=== PATIENT | male | born 1955 | race Asian ===

== ENCOUNTER 2020-03-27 01:04 | Inpatient (IN) | payer MEDICARE, OTHER ==
[~2020-03-27] VITALS: Ht 172.7 cm; Wt 63.0 kg
[2020-03-27] VITALS (69 sets, daily range): BP systolic 64–164; BP diastolic 48–103
--- NOTE | 2020-03-27 01:04 | NUR ---
BIBRA 39 ALOC AND SOB, pt to bed 5, pt came in ambu-bag via rescue, pt placed on monitor, +md prasanna at bedside for eval.
--- NOTE | 2020-03-27 01:12 | NUR ---
SUCCINYLCHOLINE 200MG IVP X 1, L HAND 20G
--- NOTE | 2020-03-27 01:15 | NUR ---
AT THE BED SIDE FOR INTUBATION
--- NOTE | 2020-03-27 01:15 | NUR ---
INTUBATED: ET 7.5, 24@ LIP
--- NOTE | 2020-03-27 01:16 | NUR ---
VENT SETTING: AC 16, 500VT, 100%, +5PEEP
[2020-03-27] MEDS ORDERED: VANCOMYCIN 1 GM in IV D5W 250 ML IV ONE (01:30)
[2020-03-27] MEDS ORDERED: PIPERACILLIN /TAZOBACTAM 3.375 G in IV D5W 50 ML IV ONE ×2 (01:30→06:00)
[2020-03-27] MEDS ORDERED: IV NS 0.9% 1,000 ML BAG IV ONE ×2 (01:30)
--- NOTE | 2020-03-27 01:55 | NUR ---
SON: BRANDT: [phone]
[2020-03-27] MEDS ORDERED: VANCOMYCIN 1 GM VIAL ONE (02:08)
[2020-03-27] MEDS ORDERED: PIPERACILLIN /TAZOBACTAM 3.375 G VIAL IV ONE (02:09)
[2020-03-27 02:21] LABS: BASOPHILS % (AUTO) 0.1 % (0.0-2.0); HEMATOCRIT 36 % (39-51); HEMOGLOBIN 11.5 g/dL (13.5-17.5); LYMPHOCYTES # (AUTO) 0.2 /CMM (0.8-4.8); LYMPHOCYTES % (AUTO) 2.9 % (20.0-44.0); MEAN CORPUSCULAR HGB CONC 33 g/dl (31.0-36.0); MEAN CORPUSCULAR VOLUME 82 fL (80-96); MONOCYTES # (AUTO) 0.2 /CMM (0.1-1.30); MONOCYTES % (AUTO) 3.3 % (2.0-12.0); NEUTROPHILS # (AUTO) 5.5 /CMM (1.8-8.9); NEUTROPHILS % (AUTO) 93.7 % (43.0-81.0); PLATELET COUNT (AUTO) 211 /CMM (150-450); RED BLOOD CELL COUNT(AUTO) 4.34 MIL/uL (4.5-6.0); WHITE BLOOD COUNT (AUTO) 5.9 K/uL (4.3-11.0)
[2020-03-27 02:21] LABS: APPEARANCE,URINE SL CLOUDY (CLEAR); BILIRUBIN,URINE MODERATE (NEGATIVE); BLOOD, URINE SMALL Ery/uL (NEGATIVE); COLOR,URINE YELLOW (YELLOW); KETONES,URINE 15 (NEGATIVE); LEUKOCYTE ESTERASE ,URINE SMALL (NEGATIVE); NITRITE, URINE NEGATIVE (NEGATIVE); PROTEIN,URINE 100 mg/dl (NEGATIVE); UGLUCOSE NEGATIVE (NEGATIVE); UROBILINOGEN,URINE 0.2 EU/dL (0.2)
[2020-03-27 02:27] LABS: BACTERIA,URINE Many /HPF (None Seen); SQUAMOUS EPITHELIAL CELL,UR Rare /HPF (None Seen); WBC,URINE TOO NUMEROUS TO COUN /HPF (0-3)
[2020-03-27 02:55] LABS: ALANINE AMINOTRANSFERASE 34 U/L (12-78); ALBUMIN 2.3 g/dL (3.4-5.0); ALKALINE PHOSPHATASE 145 U/L (46-116); ASPARTATE AMINOTRANSFERASE 38 U/L (15-37); B-TYPE NATRIURETIC PEPTIDE 1981 PG/ML (0-125); BILIRUBIN,DIRECT 0.3 mg/dL (0.0-0.2); BILIRUBIN,TOTAL 0.5 mg/dL (0.2-1.0); CALCIUM, SERUM 7.9 mg/dL (8.5-10.1); CARBON DIOXIDE 32 mmol/L (21-32); CHLORIDE 108 mmol/L (98-107); CREATININE 0.9 mg/dL (0.6-1.3); POTASSIUM 3.1 mmol/L (3.5-5.1); SODIUM SERUM 145 mmol/L (136-145); TOTAL PROTEIN, SERUM 5.1 g/dL (6.4-8.2); UREA NITROGEN, BLOOD 33 mg/dL (7-18)
[2020-03-27 02:56] LABS: GLUCOSE 28 mg/dL (74-106)
[2020-03-27] MEDS ORDERED: DEXTROSE 50%-WATER 50 ML DISP.SYRIN ONE (02:57)
[2020-03-27] MEDS ORDERED: DEXTROSE 50%-WATER 50 ML DISP.SYRIN IVP ONE (03:30)
[2020-03-27 03:50] LABS: ABG BASE EXCESS -1.1 mmol/L; ABG OXYGEN SATURATION 94.6 % (92.0-98.5); ABG PH 7.399 (7.350-7.450); ABG PO2 78.3 mmHg (75.0-100.0); AaDO2 595.7 mmHg; COHb 0.9 % (0.5-1.5); MetHb 0.3 % (0.0-1.5); O2Hb 93.5 % (94.0-97.0); PEEP,BG 5 cm H2O; SITE, ABG Left Radial; VT, ABG 500 mL
[2020-03-27] MEDS ORDERED: PROPOFOL 100 ML ONE (03:58)
--- NOTE | 2020-03-27 04:21 | NUR ---
report given to jelena queen, pt will be transported to icu
[2020-03-27] MEDS ORDERED: PANT40TA2 PO (04:22)
[2020-03-27] MEDS ORDERED: PRED20TA PO (04:22)
[2020-03-27] MEDS ORDERED: BICT1TAB PO (04:22)
--- NOTE | 2020-03-27 04:22 | NUR ---
propofol drip started per dr. valle verbal order.
--- NOTE | 2020-03-27 05:30 | NUR ---
EL TEACHER NOTES, RECEIVED PATIENT FROM ER ENTUBATED, ETT 7.5 24 LIP, AC 16, TV 500, FIO2 100%, PEEP 5, ON PROPOFOL 10MCG, PATIENT ATTACHED TO TELE MONITOR BP 130/62, HR 100, 96%, 96.7, 18, IV ACCESS RIGHT FOOT AND LEFT HAND 20G PATENT AND INTACT UNDER [facility] WITH DX SEPSIS, R/O COVID, AFEBRILE AT THIS TIME, SACRAL REDNESS NOTED, AND MULTIPLE, COLOSTOMY IN PLACED WITH MINIMAL YELLOWISH STOOL NOTED, ALL NEEDS PROVIDED, WILL CONTINUE TO MONITOR CLOSELY.
--- NOTE | 2020-03-27 05:30 | NUR ---
RN NOTES, CORRECTION ADMITTING DX RESPIRATORY FAILURE.
[2020-03-27] MEDS ORDERED: ZOLPIDEM TARTRATE 5 MG TABLET PO PRN (06:00)
[2020-03-27] MEDS ORDERED: ACETAMINOPHEN 325 MG TABLET PO PRN (06:00)
[2020-03-27] MEDS: PROPOFOL 100 ML IV PRN ×3 (06:00→20:44)
[2020-03-27] MEDS ORDERED: MAGNESIUM HYDROXIDE 30 ML UDC PO PRN (06:00)
[2020-03-27] MEDS ORDERED: PROPOFOL 100 ML IV PRN (06:00)
[2020-03-27] MEDS ORDERED: Z GUARD REMEDY 2 OZ OINT TP PRN (06:00)
[2020-03-27] MEDS ORDERED: DEXTROSE 50%-WATER 50 ML DISP.SYRIN IV PRN (06:00)
[2020-03-27] MEDS ORDERED: PIPERACILLIN /TAZOBACTAM 3.375 G in IV D5W 50 ML IV SCH (06:00)
[2020-03-27] MEDS ORDERED: HYDROCODONE/APAP 5/325MG 1 EACH TABLET PO PRN (06:00)
[2020-03-27] MEDS ORDERED: ONDANSETRON HCL/PF 4 MG/2 ML VIAL IVP PRN (06:00)
[2020-03-27] MEDS: IV D5/ 0.9% NACL 1,000 ML IV PRN ×2 (06:07→22:41)
[2020-03-27 06:23] LABS: BASOPHILS % (AUTO) 0.5 % (0.0-2.0); HEMATOCRIT 39 % (39-51); HEMOGLOBIN 12.6 g/dL (13.5-17.5); LYMPHOCYTES # (AUTO) 0.1 /CMM (0.8-4.8); MEAN CORPUSCULAR HGB CONC 32 g/dl (31.0-36.0); MEAN CORPUSCULAR VOLUME 82 fL (80-96); MONOCYTES # (AUTO) 0.1 /CMM (0.1-1.30); MONOCYTES % (AUTO) 2.5 % (2.0-12.0); NEUTROPHILS # (AUTO) 4.1 /CMM (1.8-8.9); PLATELET COUNT (AUTO) 213 /CMM (150-450); RED BLOOD CELL COUNT(AUTO) 4.76 MIL/uL (4.5-6.0); WHITE BLOOD COUNT (AUTO) 4.3 K/uL (4.3-11.0)
[2020-03-27] MEDS: BLOOD SUGAR DIAGNOSTIC 1 EACH STRIP IN SCH ×3 (06:50→18:00)
--- NOTE | 2020-03-27 07:14 | NUR ---
RN NOTES, PATIENT ENTUBATED WITH STABLE VS, REPORT GIVEN TO MELITON FOR CONTINUATION OF CARE, CONT ON PROPOFOL 10MCG, AND D5 NS AT 125ML/HR, IV ACCESS IN RIGHT FOOT AND LEFT FA 20G PATENT AND INTACT, S/R OF BED 2X UP, BED LOCKED AND IN LOW POSITION, CALL LIGHT W/I REACH, BILATERAL SOFT WRIST RESTRAINS IN PLACED, NO ABNORMALITIES NOTED, NO CIRCULATION COMPROMISED.
[2020-03-27 07:36] LABS: C-REACTIVE PROTEIN 10.6 mg/dL (0.0-0.9)
[2020-03-27] MEDS ORDERED: FEE PK DOSING 1 MIN EA MC ONE (07:41)
[2020-03-27 07:43] LABS: CALCIUM, SERUM 7.8 mg/dL (8.5-10.1); CREATININE 0.9 mg/dL (0.6-1.3); MAGNESIUM 1.6 mg/dL (1.8-2.4); PHOSPHORUS 2.5 mg/dL (2.5-4.9); POTASSIUM 3.5 mmol/L (3.5-5.1)
[2020-03-27 08:10] LABS: ABG BASE EXCESS 0.1 mmol/L; ABG OXYGEN SATURATION 98.3 % (92.0-98.5); ABG PH 7.458 (7.350-7.450); ABG PO2 177.5 mmHg (75.0-100.0); AaDO2 501.5 mmHg; COHb 0.5 % (0.5-1.5); MetHb 0.1 % (0.0-1.5); O2Hb 97.7 % (94.0-97.0); SITE, ABG Right Radial; VENT MODE, BG AC 16 500 100% +5
[2020-03-27] MEDS: POTASSIUM CL. PREMIX PERIPHER. 50 ML IV SCH ×4 (08:58→12:13)
[2020-03-27] MEDS: ENOXAPARIN SODIUM 40 MG/0.4 ML DISP.SYRIN SQ SCH (09:00)
[2020-03-27] MEDS ORDERED: SUCCINYLCHOLINE CHLORIDE 20 MG/ML VIAL ONE (10:22)
[2020-03-27] MEDS: PIPERACILLIN /TAZOBACTAM 3.375 G in IV D5W 100 ML IV SCH ×2 (10:27→16:10)
--- NOTE | 2020-03-27 10:51 | NUR ---
RN NOTE RT suctioned patient, placed in specimen fridge, made lab aware.
--- NOTE | 2020-03-27 10:53 | NUR ---
RN NOTE 0715: Received patient with ETT to dalila,t no respiratory distress noted at this time. With 2 PIVs intact, on Diprivan @ 10, noted patient with mild agitaion, will titrate as ordered. On D5NS @ 100. On isolcation prec for Covid, maintained and observed. ST 100's on the monitor. 0845: S/E by Dr. Mendez, aware for the ABG, with order to change vent settings, from AC 16, 500, 100% +5 to FIO2 70%. 0900: Tried placing NGT or OGT but unsuccessful, no gurgling sound during auscultation. Will try again later. 1045: No any significant changes noted at this time. Will continue to monitor.
[2020-03-27] MEDS: Magnesium 1GM/D5W 100ML PREMIX 100 ML IV SCH ×2 (11:24→14:15)
[2020-03-27] MEDS: methylPREDNISolone SOD SUCC 40 MG/ML VIAL IV SCH ×2 (11:24→16:09)
[2020-03-27] MEDS ORDERED: PHENYLEPHRINE 50 MG in IV NS 0.9% 245 ML IV PRN (12:00)
[2020-03-27] MEDS: SULFAMETHOXAZOLE/TRIMETHOPRIM 15 ML in IV D5W 250 ML IV SCH ×2 (12:46→17:41)
[2020-03-27] MEDS: VANCOMYCIN 1 GM in IV D5W 250 ML IV SCH (14:30)
[2020-03-28] VITALS (41 sets, daily range): BP systolic 86–131; BP diastolic 42–81
[2020-03-28] MEDS: SULFAMETHOXAZOLE/TRIMETHOPRIM 15 ML in IV D5W 250 ML IV SCH ×3 (01:12→15:40)
[2020-03-28] MEDS: BLOOD SUGAR DIAGNOSTIC 1 EACH STRIP IN SCH ×4 (01:35→17:26)
[2020-03-28] MEDS: PIPERACILLIN /TAZOBACTAM 3.375 G in IV D5W 100 ML IV SCH ×3 (01:38→17:26)
--- NOTE | 2020-03-28 01:48 | NUR ---
EXPERIMENTAL MACHINING LAB MANAGER: CALLED AND NOTIFIED KYLAH SHELDON NP FLIGHT LINE MECHANIC RE BLOOD [id number] AND MADE AWARE PT ON D5NS AT 100ML/HR. INCLUSION SPECIALIST HAS NO NEW ORDER AT THIS TIME AND CONTINUE TO MONITOR.
[2020-03-28] MEDS: VANCOMYCIN 1 GM in IV D5W 250 ML IV SCH ×2 (02:45→15:39)
[2020-03-28] MEDS: PHENYLEPHRINE 50 MG in IV NS 0.9% 245 ML IV PRN (04:18)
[2020-03-28 05:10] LABS: ALBUMIN 1.5 g/dL (3.4-5.0); BILIRUBIN,DIRECT 0.1 mg/dL (0.0-0.2); BILIRUBIN,TOTAL 0.3 mg/dL (0.2-1.0); TOTAL PROTEIN, SERUM 4.1 g/dL (6.4-8.2)
[2020-03-28 05:11] LABS: *BASOS 0 % (Not Estab.); *COMMENTS Note: (.); *EOS 0 % (Not Estab.); *HCT 34.9 % (37.5-51.0); *HGB 11.1 g/dL (13.0-17.7); *LYMPHOCYTES 4 % (Not Estab.); *LYMPHS, ABSOLUTE 0.2 x10E3/uL (0.7-3.1); *MCH 25.3 pg (26.6-33.0); *MCHC 31.8 g/dL (31.5-35.7); *MCV 80 fL (79-97); *MONOCYTES 3 % (Not Estab.); *MONOS, ABSOLUTE 0.1 x10E3/uL (0.1-0.9); *NEUTROPHILS 69 % (Not Estab.); *NEUTROPHILS, ABSOLUTE 3.7 x10E3/uL (1.4-7.0); *PLT 197 x10E3/uL (150-450); *RBC 4.38 x10E6/uL (4.14-5.80); *RDW 18.4 % (11.6-15.4)
[2020-03-28 05:27] LABS: CALCIUM, SERUM 7.3 mg/dL (8.5-10.1); CREATININE 0.8 mg/dL (0.6-1.3); PHOSPHORUS 2.4 mg/dL (2.5-4.9); POTASSIUM 3.4 mmol/L (3.5-5.1)
[2020-03-28 06:01] LABS: BASOPHILS % (AUTO) 0.2 % (0.0-2.0); EOSINOPHILS % (AUTO) 0.1 % (0.0-6.0); HEMATOCRIT 28 % (39-51); HEMOGLOBIN 9.1 g/dL (13.5-17.5); LYMPHOCYTES # (AUTO) 0.1 /CMM (0.8-4.8); MEAN CORPUSCULAR HGB CONC 32 g/dl (31.0-36.0); MEAN CORPUSCULAR VOLUME 80 fL (80-96); MONOCYTES # (AUTO) 0.3 /CMM (0.1-1.30); MONOCYTES % (AUTO) 2.1 % (2.0-12.0); NEUTROPHILS # (AUTO) 14.2 /CMM (1.8-8.9); NEUTROPHILS % (AUTO) 96.6 % (43.0-81.0); PLATELET COUNT (AUTO) 154 /CMM (150-450); WHITE BLOOD COUNT (AUTO) 14.7 K/uL (4.3-11.0)
[2020-03-28] MEDS: PROPOFOL 100 ML IV PRN ×2 (06:24→10:40)
[2020-03-28 06:28] LABS: BAND % (MANUAL) 26 % (0.0-5.0); LYMPHOCYTES % (MANUAL) 3 % (16-48); MONOCYTES % (MANUAL) 3 % (0-11.0); NEUTROPHILS % (MANUAL) 68 (42-76)
--- NOTE | 2020-03-28 06:30 | NUR ---
ALPACA FARMER: REMAINS SEDATED ON DIPRIVAN AT 25MCG/KG/MIN. CONTINUE ON NEOSYNEPHRINE AT 1MCG/KG/MIN. VENT SETTINGS ORDERED AND TOLERATING WELL. BILAT. WRIST RESTRAINTS IN PLACE TO PREVENT SELF-EXTUBATION. SKIN AND CIRCULATION WNL. BED BATH GIVEN. WILL CONTINUE TO MONITOR.
[2020-03-28] MEDS ORDERED: Potassium Chloride 40 MEQ in IV D5/ 0.9% NACL 1,000 ML IV PRN (07:00)
--- NOTE | 2020-03-28 07:00 | NUR ---
TORCH CUTTER OPENING NOTES \ PATIENT IS SEDATED WITH DIPRIVAN RUNNIN @ 25MCG/KG , ON EXTERNAL MONITOR SR IN THE 60'S ON ,INTUBATED WITH MECH VENT SETTINGS PRESCRIBED BY DOC. 7.5 ETT, AC 16, TV 500, FIO2 60 , PEEP 5 . COLOSTOMY BAG, CLEAN AND INTACT WITH SMALL AMOUNTS OF OUTPUT, WHITE CATH PATENT AND INTACT, SACRAL REDNESS, BILATERAL HEELS, KNEES F FOOT IV SITE 20G, L FA 20G PATENT INTACT, NO SIGNS OF INFILTRATION. BED LOCKED AND LOWEST POSITION CALL LIGHT WITHIN REACH ALL SAFETY MEASURE IMPLEMENTED PER HOSPITAL POLICY.
[2020-03-28 08:15] LABS: ABG BASE EXCESS -1.5 mmol/L; ABG OXYGEN SATURATION 97.9 % (92.0-98.5); ABG PCO2 28.5 mmHg (35.0-45.0); ABG PH 7.488 (7.350-7.450); AaDO2 284.5 mmHg; COHb 0.5 % (0.5-1.5); MetHb 0.3 % (0.0-1.5); O2Hb 97.1 % (94.0-97.0); PEEP,BG 5 cm H2O; SITE, ABG Right Radial; VT, ABG 500 mL
--- NOTE | 2020-03-28 08:40 | NUR ---
VENT CHANGES BELOW PER DR. AHGEN: ANGEL 12 FIO2 50% Addendum: 03/28/20 at 0840 by JEANNE GARG RT Amended: Links added.
[2020-03-28] MEDS ORDERED: BIKTARVY PO SCH (09:00)
[2020-03-28] MEDS ORDERED: Sodium Phosphate 15 MMOL in IV NS 0.9% 245 ML IV SCH (10:30)
[2020-03-28] MEDS: methylPREDNISolone SOD SUCC 40 MG/ML VIAL IV SCH ×2 (11:08→17:25)
[2020-03-28] MEDS: ENOXAPARIN SODIUM 40 MG/0.4 ML DISP.SYRIN SQ SCH (11:09)
--- NOTE | 2020-03-28 12:33 | NUR ---
COLOR CHECKER - NG TUBE PULL NG TUBE OUT
--- NOTE | 2020-03-28 18:42 | NUR ---
GYM INSTRUCTOR NO CHANGE IN CONDITION AT THIS TIME, PATIENT REMAINS STABLE, NO PAIN, NO ACUTE RESPIRATORY RESPONSE, VITALS REMAINS STABLE, PATIENT TURN AND REPOSITION Q2H, BED LOCKED AN LOWEST POSITION CALL LIGHT WITH IN REACH ALL SAFETY MEASURE IMPLEMENTED PER HOSPITAL POLICY. Addendum: 03/28/20 at 1844 by DAVID VILLAREAL RN PERFORMANCE TESTER NO CHANGE IN CONDITION AT THIS TIME, PATIENT REMAINS STABLE, NO PAIN, NO ACUTE RESPIRATORY RESPONSE, VITALS REMAINS STABLE, PATIENT TURN AND REPOSITION Q2H, BED LOCKED AN LOWEST POSITION CALL LIGHT WITH IN REACH ALL SAFETY MEASURE IMPLEMENTED PER HOSPITAL POLICY. TALKED TO FAMILY TO UPDATE ON PATIENT CONDITION
--- NOTE | 2020-03-28 19:30 | NUR ---
STALLION KEEPER NOTES SUCTIONED DONE NOTED WITH SMALL AMT OF BLEEDING , PER RN DAY SHIFT NGT TRIED TO INSERT BUT UNABLE TO DO IT.
[2020-03-28] MEDS ORDERED: FLUCONAZOLE IN NS 200 MG in PREMIX 1 EA IV SCH ×2 (20:00)
--- NOTE | 2020-03-28 20:00 | NUR ---
MIS MANAGER OPENING NOTES \ PATIENT IN BED REMAINS ON VENT AC SETTINGS WELL TOLERATED ON SR ON THE MONITOR SATING 100% ,NO SOB NO DISTRESS NOTED BREATHING EVEN AND UNLABORED. WITH DIPRIVAN RUNNIN @ 25MCG/KG ,CALEB DRIP AT 0.5MCG/KG/MIN INFUSING WELL,WITH BELEN PICCLINE INTACT AND PATENT ,WITH R FOOT G#20 AND RIGHT HAND g#20 INTACT AND PATENT. COLOSTOMY BAG, CLEAN AND INTACT WITH SMALL AMOUNTS OF OUTPUT, WHITE CATH PATENT AND INTACT DRAINING WITH YELLOWISH URINE OUTPUT.V/S STABLE AFEBRILE , PTS TURNED AND REPOSITION. BED LOCKED AND LOWEST POSITION CALL LIGHT WITHIN REACH ALL SAFETY MEASURE IMPLEMENTED PER HOSPITAL POLICY. PTS ON BILATERAL WRIST RESTRAINT TO PREVENT PULLING OF INVASIVE TUBINGS ,ALL NEEDS ATTENDED TOO ,ALL DUE MEDS GIVEN ORDERED.
[2020-03-28] MEDS: Potassium Chloride 40 MEQ in IV NS 0.9% 1,000 ML IV PRN (20:33)
[2020-03-28] MEDS: AZITHROMYCIN 500 MG in IV D5W 250 ML IV SCH (20:37)
[2020-03-28] MEDS: ACYCLOVIR IV 500 MG in IV D5W 100 ML IV SCH (21:04)
--- NOTE | 2020-03-28 22:00 | NUR ---
GRAIN OPERATIONS MANAGER NOTES BLOOD SUGAR AT 0000HRS IS 206 MG/DL NO COVERAGE GIVEN , ALL DUE MEDS AND IV ATB GIVEN ORDERED.WILL CONTINUE TO MONITOR PTS.
[2020-03-28] MEDS: PROPOFOL 10MG/ML 50ML 50 ML IV PRN ×2 (22:05→23:28)
[2020-03-29] VITALS (47 sets, daily range): BP systolic 87–119; BP diastolic 63–96
[2020-03-29] MEDS: SULFAMETHOXAZOLE/TRIMETHOPRIM 15 ML in IV D5W 250 ML IV SCH ×3 (00:13→17:48)
[2020-03-29] MEDS: BLOOD SUGAR DIAGNOSTIC 1 EACH STRIP IN SCH ×4 (00:38→18:06)
[2020-03-29] MEDS: PIPERACILLIN /TAZOBACTAM 3.375 G in IV D5W 100 ML IV SCH ×3 (01:06→16:44)
[2020-03-29] MEDS: PROPOFOL 10MG/ML 50ML 50 ML IV PRN ×3 (05:10→17:37)
[2020-03-29 05:19] LABS: BASOPHILS # (AUTO) 0.1 /CMM (0.0-0.2); BASOPHILS % (AUTO) 0.5 % (0.0-2.0); HEMATOCRIT 27 % (39-51); HEMOGLOBIN 8.9 g/dL (13.5-17.5); LYMPHOCYTES # (AUTO) 0.1 /CMM (0.8-4.8); LYMPHOCYTES % (AUTO) 1.1 % (20.0-44.0); MEAN CORPUSCULAR HGB CONC 33 g/dl (31.0-36.0); MEAN CORPUSCULAR VOLUME 80 fL (80-96); MONOCYTES # (AUTO) 0.3 /CMM (0.1-1.30); MONOCYTES % (AUTO) 2.6 % (2.0-12.0); NEUTROPHILS % (AUTO) 95.8 % (43.0-81.0); PLATELET COUNT (AUTO) 145 /CMM (150-450); RED BLOOD CELL COUNT(AUTO) 3.42 MIL/uL (4.5-6.0); WHITE BLOOD COUNT (AUTO) 10.4 K/uL (4.3-11.0)
[2020-03-29 06:02] LABS: CALCIUM, SERUM 7.4 mg/dL (8.5-10.1); CREATININE 0.6 mg/dL (0.6-1.3); MAGNESIUM 1.7 mg/dL (1.8-2.4); PHOSPHORUS 2.6 mg/dL (2.5-4.9); POTASSIUM 3.8 mmol/L (3.5-5.1)
--- NOTE | 2020-03-29 06:20 | NUR ---
LARGE ANIMAL HUSBANDRY TECHNICIAN NOTES BLOOD SUGAR AT 0600HRS IS 143 MG/DL NO COVERAGE GIVEN ORDERED.
--- NOTE | 2020-03-29 06:53 | NUR ---
COILER NOTES PTS REMAINS ON DIPRIVAN 25 MCG AND NEO0.5MCG DRIP ORDERED WELL TOLERATED , WILL ENDORSE TO RN DAY SHIFT FOR CONTINUITY OF CARE.
[2020-03-29 07:45] LABS: ABG BASE EXCESS -1.7 mmol/L; ABG OXYGEN SATURATION 98.3 % (92.0-98.5); ABG PCO2 29.4 mmHg (35.0-45.0); ABG PH 7.476 (7.350-7.450); ABG PO2 147.1 mmHg (75.0-100.0); AaDO2 176.3 mmHg; COHb 0.4 % (0.5-1.5); MetHb 0.3 % (0.0-1.5); O2Hb 97.6 % (94.0-97.0); PEEP,BG 5 cm H2O; SITE, ABG Right Radial; VT, ABG 500 mL
--- NOTE | 2020-03-29 08:00 | NUR ---
LIQUOR MERCHANT NOTE PATIENT IN BED, O\SEDATED ON ETT TUBE ORDERED, WITH COLOSTOMY BAG IN PLACE, NO SOB NOTED ABG DONE BY RT , ON IVF ORDERED,ON PROPOFOL DRIP ORDERED AND CALEB DRIP AND IVF, ON NPO , BED IN LOWEST AND LOCKED POSITION WITH SOFT RESTRAIN ORDERED ,WILL MONITOR
[2020-03-29] MEDS: ACYCLOVIR IV 500 MG in IV D5W 100 ML IV SCH ×2 (08:06→16:44)
[2020-03-29] MEDS: Potassium Chloride 40 MEQ in IV NS 0.9% 1,000 ML IV PRN (08:25)
--- NOTE | 2020-03-29 08:30 | NUR ---
IRON CASTER NOTE PROPOFOL VOCATION DONE ABLE TO OPEN BOTH EYES AND UNDERSTANDS SIMPLE TO BLINK BOTH EYES AND SQUEEZE BOTH HANDS BUT GET TACHYPNEIC, RR 27 RESTART PROPOFOL PER PROTOCOL AND TITRATE PER PROTOCOL
--- NOTE | 2020-03-29 09:00 | NUR ---
RT PER DR HAGEN, DECREASED TIDAL VOLUME TO 450 AND FIO2 TO 40%. RN AWARE
[2020-03-29] MEDS: Magnesium 1GM/D5W 100ML PREMIX 100 ML IV SCH ×2 (09:09→11:30)
[2020-03-29] MEDS: methylPREDNISolone SOD SUCC 40 MG/ML VIAL IV SCH ×2 (09:09→16:44)
[2020-03-29] MEDS: ENOXAPARIN SODIUM 40 MG/0.4 ML DISP.SYRIN SQ SCH (09:11)
--- NOTE | 2020-03-29 10:00 | NUR ---
SPICE FUMIGATOR NOTE SEEN BY DR HAGEN AWARE THAT PATIENT HAS BLOODY THICK SECRETION WHEN SUCTION
--- NOTE | 2020-03-29 12:00 | NUR ---
GENERAL EDUCATION PROFESSOR NOTE PER RT ABD DR HAGEN OK TO CHANGE VENT SETTING TO AC12 TV 450 FIO2 405 PEEP 5 WILL F\U
[2020-03-29] MEDS: PHENYLEPHRINE 50 MG in IV NS 0.9% 245 ML IV PRN (12:31)
--- NOTE | 2020-03-29 16:00 | NUR ---
ACCOUNT SUPPORT ANALYST NOTE 2D ECHO DONE ORDERED
--- NOTE | 2020-03-29 18:47 | NUR ---
TABLE HAND NOTE MOUTH CARE DONE ON CALEB AND PROPOFOL DRIP ORDERED SEEN BY NEAR RN GARMENT FITTER ID AWARE THAT UNABLE TO INSERT N GTUBE PATIENT BLEEDING ,AD AWARE THAT ORAL BLOODY SECRETION
--- NOTE | 2020-03-29 19:00 | NUR ---
Received patient orally intubated to the ventilator on AC mode, not in any distress, Sedated on Propofol drip, RASS 3, responds to pain,+ strong cough/gag.. Moves extremities but weak,maintained on bilateral soft wrist restraints. PICC line @ CHARLY.Neosynephrine drip for BP support. Colostomy intact .
--- NOTE | 2020-03-29 19:20 | NUR ---
PT RECEIVED ORALLY INTUBATED WITH 7.5 ET TUBE @ 24 CM LIP LINE. PT IS SEDATED . CUFF CHECKED VIA NEEDLE GRINDER. SX DONE, ET TUBE SECURED AND PATENT. NO RESPIRATORY DISTRESS. ALARMS ON AND AUDIBLE. WILL MONITOR T/O SHIFT.
[2020-03-29] MEDS: CEFEPIME 2 GM in IV D5W 100 ML IV SCH (21:20)
[2020-03-29] MEDS: FLUCONAZOLE IN NS 200 MG in PREMIX 1 EA IV SCH ×2 (21:33)
[2020-03-29] MEDS: AZITHROMYCIN 500 MG in IV D5W 250 ML IV SCH ×2 (21:40→21:45)
[2020-03-30] VITALS (83 sets, daily range): BP systolic 83–135; BP diastolic 48–90
[2020-03-30] MEDS: SULFAMETHOXAZOLE/TRIMETHOPRIM 15 ML in IV D5W 250 ML IV SCH ×4 (00:10→23:10)
[2020-03-30] MEDS: BLOOD SUGAR DIAGNOSTIC 1 EACH STRIP IN SCH ×5 (00:34→23:22)
[2020-03-30] MEDS: PROPOFOL 10MG/ML 50ML 50 ML IV PRN ×4 (04:34→20:35)
[2020-03-30] MEDS: CEFEPIME 2 GM in IV D5W 100 ML IV SCH ×3 (05:04→20:40)
[2020-03-30 05:10] LABS: BASOPHILS # (AUTO) 0.1 /CMM (0.0-0.2); BASOPHILS % (AUTO) 0.7 % (0.0-2.0); HEMATOCRIT 29 % (39-51); HEMOGLOBIN 9.5 g/dL (13.5-17.5); LYMPHOCYTES # (AUTO) 0.1 /CMM (0.8-4.8); LYMPHOCYTES % (AUTO) 1.1 % (20.0-44.0); MEAN CORPUSCULAR HGB CONC 33 g/dl (31.0-36.0); MEAN CORPUSCULAR VOLUME 81 fL (80-96); MONOCYTES # (AUTO) 0.4 /CMM (0.1-1.30); MONOCYTES % (AUTO) 3.4 % (2.0-12.0); NEUTROPHILS # (AUTO) 12.2 /CMM (1.8-8.9); NEUTROPHILS % (AUTO) 94.8 % (43.0-81.0); PLATELET COUNT (AUTO) 153 /CMM (150-450); RED BLOOD CELL COUNT(AUTO) 3.61 MIL/uL (4.5-6.0); WHITE BLOOD COUNT (AUTO) 12.8 K/uL (4.3-11.0)
[2020-03-30 05:31] LABS: CALCIUM, SERUM 7.5 mg/dL (8.5-10.1); CREATININE 0.7 mg/dL (0.6-1.3); MAGNESIUM 2.1 mg/dL (1.8-2.4); PHOSPHORUS 2.6 mg/dL (2.5-4.9); POTASSIUM 4.6 mmol/L (3.5-5.1)
[2020-03-30] MEDS ORDERED: IV NS 0.9% 1,000 ML IV PRN (07:51)
--- NOTE | 2020-03-30 08:00 | NUR ---
MANAGER SERVICE DESK: pt.is sedated with 20 mcg/kg/m Diprivan well now, rest now, reactive by touch/pain stimuli with grimacing, on wrists restraints, no SOB/distress, O2sat.over 97% on AC mode, FiO2 40%, suctioned well, SR, on Daryl gtt 0.3 mcg/kg/m now/SBP over 90/continue titrate, NPO, got bleeding with previous GT placement attempt, no critical labs now, Covid19 negative per night nurse report, updated
[2020-03-30 08:41] LABS: ABG BASE EXCESS -3.1 mmol/L; ABG OXYGEN SATURATION 97.3 % (92.0-98.5); ABG PH 7.478 (7.350-7.450); ABG PO2 97.8 mmHg (75.0-100.0); AaDO2 156.4 mmHg; COHb 1.2 % (0.5-1.5); MetHb 0.3 % (0.0-1.5); O2Hb 95.8 % (94.0-97.0); SITE, ABG Left Radial; VENT MODE, BG AC 450 12 40% +5
[2020-03-30] MEDS: ENOXAPARIN SODIUM 40 MG/0.4 ML DISP.SYRIN SQ SCH (08:47)
[2020-03-30] MEDS: methylPREDNISolone SOD SUCC 40 MG/ML VIAL IV SCH ×2 (08:50→16:08)
[2020-03-30] MEDS: ACYCLOVIR IV 500 MG in IV D5W 100 ML IV SCH ×2 (08:50→17:38)
[2020-03-30 09:12] LABS: IRON, SERUM 48 ug/dl (50-175); TOTAL IRON BINDING CAPACITY 79 ug/dl (250-450)
--- NOTE | 2020-03-30 11:02 | NUR ---
FABRICATOR ASSEMBLER METAL PRODUCTS: updated with pt.current condition, sedation level 20 mcg/kg/m Diprivan now/pt.is reactive by touch, able to open eyes with short eyes contact+, VS, Daryl gtt, suction amount, ABG, I/O, see new orders
--- NOTE | 2020-03-30 14:00 | NUR ---
CONSULTING INTERN: RD following LP order updated/last Lovenox given at 08.00
--- NOTE | 2020-03-30 14:30 | NUR ---
ATTORNEY GENERAL: pt.son called, notified re pt.condition, VS, orders, meds, POC, plan for LP, refused to give consent/want to speak with MD before
--- NOTE | 2020-03-30 15:11 | NUR ---
BOARDER STEAM: INÉS ALFARO can do LP after 12 hrs of last Lovenox dose/tomorrow morning, pt.son refused to give consent/want to speak with PMD before, sent message for
[2020-03-30] MEDS: PHENYLEPHRINE 50 MG in IV NS 0.9% 245 ML IV PRN (16:47)
--- NOTE | 2020-03-30 18:30 | NUR ---
AUTO OVERHAULER: answered: ok for LP tomorrow morning, sent Novel coronavirus TAMEKA swab to lab
[2020-03-30] MEDS: AZITHROMYCIN 500 MG in IV D5W 250 ML IV SCH (20:40)
--- NOTE | 2020-03-30 21:20 | NUR ---
RT NOTE Pt Rec'd orally intubated via ETT sz #7.5 secured at 24cm at the lipline. Pt on [facility], avon vent on AC mode on noted settings as charted. Alarms are set and audible. Vent plugged into red outlet. ambu bag bedside. Will continue to monitor closely. Addendum: 03/30/20 at 2120 by BRIELLE PRITCHETT RT Amended: Links added.
[2020-03-30] MEDS: FLUCONAZOLE IN NS 200 MG in PREMIX 1 EA IV SCH ×2 (22:03)
--- NOTE | 2020-03-30 22:30 | NUR ---
ICU/RN RECEIVED PATIENT INTUBATED ON VENTILATOR AND SEDATED, RESPONSIVE TO PAIN STIMULI NO DISTRESS NOTED AND NO SIGNS OF SOB. RESPIRATIONS EVEN AND UNLABORED. SPO2 @99% VIA MECH VENT SETTINGS ORDERED. ETT 7.[address] SR 94 ON BEDSIDE MONITOR. FC DRAINING VIA GRAVITY WITH YELLOW CLEAR OUTPUT. BELEN PICC LINE RUNNING WITH DIPRIVAN AT 20MCG/KG/MIN, NS @ 40CC/HR AND TKO INFUSING WELL. ALL NEEDS ATTENDED. WILL CONTINUE TO MONITOR PATIENT THROUGHOUT SHIFT.
[2020-03-31] VITALS (42 sets, daily range): BP systolic 86–135; BP diastolic 44–88
[2020-03-31] MEDS: PROPOFOL 10MG/ML 50ML 50 ML IV PRN ×4 (00:01→22:25)
[2020-03-31] MEDS: CEFEPIME 2 GM in IV D5W 100 ML IV SCH ×3 (05:22→20:33)
[2020-03-31 05:54] LABS: BASOPHILS % (AUTO) 0.2 % (0.0-2.0); HEMATOCRIT 28 % (39-51); LYMPHOCYTES # (AUTO) 0.1 /CMM (0.8-4.8); MEAN CORPUSCULAR HGB CONC 33 g/dl (31.0-36.0); MEAN CORPUSCULAR VOLUME 80 fL (80-96); MONOCYTES # (AUTO) 0.5 /CMM (0.1-1.30); MONOCYTES % (AUTO) 3.9 % (2.0-12.0); NEUTROPHILS # (AUTO) 11.1 /CMM (1.8-8.9); NEUTROPHILS % (AUTO) 94.9 % (43.0-81.0); PLATELET COUNT (AUTO) 124 /CMM (150-450); RED BLOOD CELL COUNT(AUTO) 3.45 MIL/uL (4.5-6.0); WHITE BLOOD COUNT (AUTO) 11.7 K/uL (4.3-11.0)
[2020-03-31] MEDS: BLOOD SUGAR DIAGNOSTIC 1 EACH STRIP IN SCH ×4 (06:07→23:40)
[2020-03-31 06:09] LABS: CALCIUM, SERUM 7.6 mg/dL (8.5-10.1); CREATININE 0.7 mg/dL (0.6-1.3); MAGNESIUM 1.9 mg/dL (1.8-2.4); PHOSPHORUS 3.4 mg/dL (2.5-4.9); POTASSIUM 4.9 mmol/L (3.5-5.1)
--- NOTE | 2020-03-31 07:17 | NUR ---
ICU/RN PATIENT CONTINUED INTUBATION AND SEDATED. NO SIGN OF ANY DISTRESS. [facility]. ENDORSED PATIENT TO MORNING SHIFT NURSE FOR YASHIRA.
--- NOTE | 2020-03-31 07:50 | NUR ---
SPECIAL FORCES COMMUNICATIONS SERGEANT: pt.is sedated with 20 mcg/kg/m Diprivan well/rest, on wrists restraints, reactive by touch/pain, can open eyes for seconds, rest now, O2sat. over 96%, no SOB, FiO2 40%, suctioned well+lavage given, SR, SBP WNL, off of pressor, NPO, colostomy intact, LP order is still active/will call to RD
[2020-03-31 08:25] LABS: ABG BASE EXCESS -3.2 mmol/L; ABG PCO2 31.9 mmHg (35.0-45.0); ABG PH 7.427 (7.350-7.450); ABG PO2 93.6 mmHg (75.0-100.0); AaDO2 154.9 mmHg; COHb 0.8 % (0.5-1.5); MetHb 0.3 % (0.0-1.5); O2Hb 95.9 % (94.0-97.0); PEEP,BG 5 cm H2O; SITE, ABG Left Radial; VT, ABG 450 mL
--- NOTE | 2020-03-31 09:30 | NUR ---
WIRE COATER: updated RD/Lovenox is in hold, got Q: if LP order is still stat they will call MD salesperson men's and boys' clothing, if not LP will be done on Thursday by in-house MD, sent message for
[2020-03-31] MEDS: methylPREDNISolone SOD SUCC 40 MG/ML VIAL IV SCH ×2 (09:42→16:31)
[2020-03-31] MEDS: ACYCLOVIR IV 500 MG in IV D5W 100 ML IV SCH ×2 (09:42→16:31)
[2020-03-31] MEDS: SULFAMETHOXAZOLE/TRIMETHOPRIM 15 ML in IV D5W 250 ML IV SCH ×3 (09:42→23:26)
--- NOTE | 2020-03-31 10:10 | NUR ---
FAMILY RESOURCE COORDINATOR: wants to verify LP order with ID FLOAT REMOVER, RD called: pt.needs anesthesiologist too
--- NOTE | 2020-03-31 11:05 | NUR ---
MACHINE HEEL SEAT FITTER: updated with pt.current condition, sedation level, VS, I/O, meds, Anbxs, suction amount, NPO, orders/LP order, HIV+, Covid swab was sent yesterday, see new orders
--- NOTE | 2020-03-31 13:03 | NUR ---
Radiology spoke with IR Radiologist Dr. Corado for Lumbar Puncture procedure. He says since the pt. is Rule out for covid at this time to try and attempt LP procedure at bedside. Spoke with Yohannes BRUMFIELD, will speak with Dr. Hendrix if this can wait until Thursday04/02/2020 to see if the results are back. Awaiting to hear back from BRISSA Sheffield.
--- NOTE | 2020-03-31 13:25 | NUR ---
PRESIDENT AND CMO: sedation vacation: stopped Diprivan for short time: pt is reactive, can open eyes, arms/legs activity+, but got restless with ETT biting/coughing, tachypneic. Resumed sedation, suctioned pt.well, O2sat. over 97%
--- NOTE | 2020-03-31 14:06 | NUR ---
SURVEILLANCE OBSERVER: is in unit/updated with pt.current condition, VS, sedation level, pressor off, I/O, NPO, meds, orders, Lovenox is still on hold, sent message to for if possible LP, see new orders
--- NOTE | 2020-03-31 15:00 | NUR ---
INFECTION CONTROL NURSE: is going to do LP, spoke with pt.son/got consent
[2020-03-31] MEDS: ENOXAPARIN SODIUM 40 MG/0.4 ML DISP.SYRIN SQ SCH (16:28)
--- NOTE | 2020-03-31 17:00 | NUR ---
LEGAL INVESTIGATOR: LP done by , pt is tolerated well, sent CSF samples to lab
[2020-03-31 17:39] LABS: CSF GLUCOSE 61 mg/dL (40-70); CSF PROTEIN 89.7 mg/dL (15-45)
[2020-03-31] MEDS: FLUCONAZOLE IN NS 200 MG in PREMIX 1 EA IV SCH ×2 (20:31)
[2020-03-31] MEDS: AZITHROMYCIN 500 MG in IV D5W 250 ML IV SCH (21:08)
--- NOTE | 2020-03-31 21:19 | NUR ---
RECEIVED PT INTUBATED 7.5 ETT AT 24CM AT THE LIP. SX'D FOR MOD AMT OF THICK FERREIRA SECRETIONS. PT TOLERATING VENT SETTINGS. VENT ALARMS SET AND AUDIBLE. VENT PLUGGED INTO RED OUTLET. CONTINUE [facility] VENT SUPPORT. Addendum: 03/31/20 at 2121 by BETO BUTLER RT Amended: Links added.
[2020-04-01] VITALS (26 sets, daily range): BP systolic 93–133; BP diastolic 55–82
[2020-04-01] MEDS: PROPOFOL 10MG/ML 50ML 50 ML IV PRN ×4 (03:37→19:51)
--- NOTE | 2020-04-01 04:38 | NUR ---
LAND DEGRADATION ANALYST PT IS INTUBATED-VENTILATOR AC MODE. SEDATED WITH PROPOFOL DRIP. VSS, AFEBRILE, SCOPE-SR. NO PRESSORS. COVID TEST IS NEGATIVE. PT HAS RIGHT UPPER ARM PICC-LINE. BOTH ARMS ARE +2 EDEMA, MULTIPLE HEMORRHAGES, SKIN IS OOZING. LAB. WORK DONE. COLOSTOMY DRAINS SMALL AMT. OF LIQUID STOOL. F/C DRAINS SUFFICIENT AMT. OF CLEAR YELLOW URINE. BATH GIVEN, LINEN CHANGED. MEDICATED ORDERED. WILL CONTINUE CLOSE MONITORING.
[2020-04-01] MEDS: CEFEPIME 2 GM in IV D5W 100 ML IV SCH ×3 (04:42→20:25)
[2020-04-01 05:04] LABS: BASOPHILS % (AUTO) 0.1 % (0.0-2.0); HEMATOCRIT 27 % (39-51); HEMOGLOBIN 8.8 g/dL (13.5-17.5); LYMPHOCYTES # (AUTO) 0.1 /CMM (0.8-4.8); LYMPHOCYTES % (AUTO) 1.3 % (20.0-44.0); MEAN CORPUSCULAR HGB CONC 33 g/dl (31.0-36.0); MEAN CORPUSCULAR VOLUME 80 fL (80-96); MONOCYTES # (AUTO) 0.6 /CMM (0.1-1.30); MONOCYTES % (AUTO) 5.4 % (2.0-12.0); NEUTROPHILS # (AUTO) 10.3 /CMM (1.8-8.9); NEUTROPHILS % (AUTO) 93.2 % (43.0-81.0); PLATELET COUNT (AUTO) 126 /CMM (150-450); RED BLOOD CELL COUNT(AUTO) 3.37 MIL/uL (4.5-6.0); WHITE BLOOD COUNT (AUTO) 11.1 K/uL (4.3-11.0)
[2020-04-01 05:19] LABS: CALCIUM, SERUM 7.5 mg/dL (8.5-10.1); CREATININE 0.6 mg/dL (0.6-1.3); MAGNESIUM 1.9 mg/dL (1.8-2.4); PHOSPHORUS 3.2 mg/dL (2.5-4.9); POTASSIUM 4.4 mmol/L (3.5-5.1)
[2020-04-01] MEDS: BLOOD SUGAR DIAGNOSTIC 1 EACH STRIP IN SCH ×4 (06:06→23:54)
--- NOTE | 2020-04-01 07:30 | NUR ---
rn notes received patient, sedated width Diprivan at 20mcg. orally intubated.vent settings as follows ac 12, vt 500, fi02at 40, peep 5, patient tolerating the settings well. breathing unlabored. patient sinus rhythm on the monitor with hr on the 80s. bilateral soft wrist restraints in place, removed and replaced. skin is intact on the sites, multiple bruising on bilateral extremities noted. iv access on the donavon: picc line double lumen. left forearm and left foot in place. hob elevated, srx2, bed in low and locked positioon. call light within reach, will continue to monitor patient accordingly
[2020-04-01 08:22] LABS: ABG BASE EXCESS -1.7 mmol/L; ABG OXYGEN SATURATION 95.2 % (92.0-98.5); ABG PCO2 31.7 mmHg (35.0-45.0); ABG PH 7.454 (7.350-7.450); ABG PO2 81.2 mmHg (75.0-100.0); AaDO2 167.5 mmHg; COHb 0.9 % (0.5-1.5); MetHb 0.3 % (0.0-1.5); O2Hb 94.1 % (94.0-97.0); PEEP,BG 5 cm H2O; SITE, ABG Right Radial; VT, ABG 450 mL
[2020-04-01] MEDS: ENOXAPARIN SODIUM 40 MG/0.4 ML DISP.SYRIN SQ SCH (08:29)
[2020-04-01] MEDS: methylPREDNISolone SOD SUCC 40 MG/ML VIAL IV SCH ×2 (08:30→17:16)
[2020-04-01] MEDS: ACYCLOVIR IV 500 MG in IV D5W 100 ML IV SCH ×2 (09:10→09:12)
[2020-04-01] MEDS: SULFAMETHOXAZOLE/TRIMETHOPRIM 15 ML in IV D5W 250 ML IV SCH ×3 (09:12→23:28)
[2020-04-01] MEDS ORDERED: GLUCERNA 1.2 1,000 ML BOTTLE NG PRN (16:00)
--- NOTE | 2020-04-01 19:30 | NUR ---
HARDWARE DEVELOPER OPENING NOTES, RECEIVED PATIENT SEDATED, INTUBATED, TOLERATING CURRENT VENT SETTINGS WELL. NO SOB OR ACUTE DISTRESS NOTED AT THIS TIME. SINUS RHYTHM ON BEDSIDE MONITOR WITH HR IN LOW 80s. IV ACCESS ON BELEN, PICC LINE WITH DIPRIVAN RUNNING AT 20MCG/KG/HR. AND LEFT FA #20 AND LEFT FOOT #[address], PATENT AND FLUSHING WELL. ORAL FEEDING TUBE IS IN PLACE AND PATIENT RECEIVING GLUCERNA @20ML/HR, TOLERATING WELL. FC DRAINING CLEAR/YELLOW URINE TO THE GRAVITY. PATIENT HAS COLOSTOMY INTACT AND DRAINING WELL. BILATERAL LOWER/UPPER EXTREMITIES EDEMA NOTED WITH MULTIPLE BRUISES. SOFT WRIST RESTRAIN NOTED. ALL SAFETY MEASURES IN PLACE. HOB ELEVATED, BED IN LOW/LOCKED POSITION, WILL CONTINUE TO MONITOR THE PATIENT CLOSELY.
--- NOTE | 2020-04-01 19:34 | NUR ---
rn notes endorsed for continuity of care. not on any form of distress. tolerating current vent settings. still sedated with Diprivan at 20mcg/min.
[2020-04-01] MEDS: AZITHROMYCIN 500 MG in IV D5W 250 ML IV SCH (20:25)
[2020-04-01] MEDS: FLUCONAZOLE IN NS 200 MG in PREMIX 1 EA IV SCH ×2 (20:25)
[2020-04-02] VITALS (26 sets, daily range): BP systolic 86–124; BP diastolic 57–78
[2020-04-02] MEDS: PROPOFOL 10MG/ML 50ML 50 ML IV PRN ×4 (02:16→18:05)
[2020-04-02 03:59] LABS: BASOPHILS % (AUTO) 0.4 % (0.0-2.0); HEMATOCRIT 26 % (39-51); HEMOGLOBIN 8.5 g/dL (13.5-17.5); LYMPHOCYTES # (AUTO) 0.1 /CMM (0.8-4.8); LYMPHOCYTES % (AUTO) 1.3 % (20.0-44.0); MEAN CORPUSCULAR HGB CONC 33 g/dl (31.0-36.0); MEAN CORPUSCULAR VOLUME 80 fL (80-96); MONOCYTES # (AUTO) 0.4 /CMM (0.1-1.30); MONOCYTES % (AUTO) 4.3 % (2.0-12.0); NEUTROPHILS # (AUTO) 8.2 /CMM (1.8-8.9); PLATELET COUNT (AUTO) 140 /CMM (150-450); RED BLOOD CELL COUNT(AUTO) 3.26 MIL/uL (4.5-6.0); WHITE BLOOD COUNT (AUTO) 8.7 K/uL (4.3-11.0)
[2020-04-02 04:17] LABS: CALCIUM, SERUM 7.6 mg/dL (8.5-10.1); CREATININE 0.7 mg/dL (0.6-1.3); MAGNESIUM 1.8 mg/dL (1.8-2.4); PHOSPHORUS 3.2 mg/dL (2.5-4.9); POTASSIUM 4.4 mmol/L (3.5-5.1)
[2020-04-02] MEDS: CEFEPIME 2 GM in IV D5W 100 ML IV SCH ×3 (05:06→20:34)
[2020-04-02] MEDS: BLOOD SUGAR DIAGNOSTIC 1 EACH STRIP IN SCH ×3 (06:14→17:57)
--- NOTE | 2020-04-02 07:00 | NUR ---
CHANNEL WORKER CLOSING NOTES, PATIENT SEDATED, INTUBATED, TOLERATING CURRENT VENT SETTINGS WELL. NO SOB OR ACUTE DISTRESS NOTED AT THIS TIME. SINUS RHYTHM ON BEDSIDE MONITOR WITH HR IN LOW 70s. IV ACCESS ON BELEN, PICC LINE WITH DIPRIVAN RUNNING AT 20MCG/KG/HR. AND LEFT FA #20 AND RIGHT FOOT #[address], PATENT AND FLUSHING WELL. ORAL FEEDING TUBE IS IN PLACE AND PATIENT RECEIVING GLUCERNA @20ML/HR, TOLERATING WELL. FC DRAINING CLEAR/YELLOW URINE TO THE GRAVITY. PATIENT HAS COLOSTOMY INTACT AND DRAINING WELL. BILATERAL LOWER/UPPER EXTREMITIES EDEMA NOTED WITH MULTIPLE BRUISES. SOFT WRIST RESTRAIN NOTED. ALL SAFETY MEASURES IN PLACE. HOB ELEVATED, BED IN LOW/LOCKED POSITION, WILL ENDORSE THE PATIENT TO AM RN FOR YASHIRA.
--- NOTE | 2020-04-02 07:30 | NUR ---
RN NOTES RECEIVED PATIENT, NOT ON ANY FORM OF DISTRESS, BREATHING UNLABORED. TOLERATING VENT SETTINGS WELL. NO INDICATION OF PAIN NOTED AT THIS TIME. SINUS RHYTHM ON THE MONITOR WITH HR ON THE 80s. WITH ONGOING GTF RUNNING AT 20 CC/HR. HOB ELEVATED. SRX2 UP. BED IN LOW AND LOCKED POSITION. WILL CONTINUE TO MONITOR PATIENT ACCORDINGLY
[2020-04-02 08:06] LABS: ABG BASE EXCESS -1.5 mmol/L; ABG OXYGEN SATURATION 97.9 % (92.0-98.5); ABG PCO2 30.4 mmHg (35.0-45.0); ABG PH 7.471 (7.350-7.450); ABG PO2 117.4 mmHg (75.0-100.0); AaDO2 204.9 mmHg; COHb 0.8 % (0.5-1.5); MetHb 0.3 % (0.0-1.5); O2Hb 96.8 % (94.0-97.0); PEEP,BG 5 cm H2O; SITE, ABG Other; VT, ABG 450 mL
[2020-04-02] MEDS: ACYCLOVIR IV 500 MG in IV D5W 100 ML IV SCH ×2 (08:38→17:57)
[2020-04-02] MEDS: methylPREDNISolone SOD SUCC 40 MG/ML VIAL IV SCH ×2 (08:38→17:57)
[2020-04-02] MEDS: ENOXAPARIN SODIUM 40 MG/0.4 ML DISP.SYRIN SQ SCH (08:39)
--- NOTE | 2020-04-02 08:53 | NUR ---
WOUND CARE CONSULT: PT PRESENTS WITH RT ARM SKIN TEAR, MULTIPLE AREAS OF BRUISING AND SKIN DISCOLORATION TO UPPER EXTREMITIES, SACRAL DEEP TISSUE INJURY WHICH IS INTACT, AND VERY DUSKY COLOR TO FEET AND HEELS, ALL PRESENT ON ADMISSION. RECOMMENDATIONS MADE FOR SKIN PROTECTION AND WOUND CARE. DISCUSSED WITH NURSING STAFF AND HOSPICE/HOME HEALTH AIDE. WILL SEE PRN. ALFARO IN AGREEMENT WITH PLAN OF CARE. Addendum: 04/02/20 at 0856 by SARI CASTELAN WNDNU Amended: Links added.
[2020-04-02] MEDS: SULFAMETHOXAZOLE/TRIMETHOPRIM 15 ML in IV D5W 250 ML IV SCH ×3 (08:56→23:35)
--- NOTE | 2020-04-02 09:30 | NUR ---
rn notes Dr. Mendez at the unit, with orders to advance ett 2 cm in. Informed RT Fam.
--- NOTE | 2020-04-02 09:35 | NUR ---
et tube adjusted from 24 cm to [address] cadena. Addendum: 04/02/20 at 0936 by JEANNE GARG RT Amended: Links added.
[2020-04-02] MEDS: ACETYLCYSTEINE 10% SOLN 400 MG/4 ML VIAL NEB SCH ×3 (11:00→23:31)
--- NOTE | 2020-04-02 12:00 | NUR ---
RN NOTES PAGED HOSPITALIST FOR POSSIBLE SLIDING SCALE ORDER. AWAITING ORDERS
--- NOTE | 2020-04-02 19:30 | NUR ---
CALCINE FURNACE LOADER OPENING NOTES, RECEIVED PATIENT SEDATED, INTUBATED, TOLERATING CURRENT VENT SETTINGS WELL. NO SOB OR ACUTE DISTRESS NOTED AT THIS TIME. SINUS RHYTHM ON BEDSIDE MONITOR WITH HR IN LOW 80s. IV ACCESS ON BELEN, PICC LINE WITH DIPRIVAN RUNNING AT 20MCG/KG/HR. AND RIGHT HAND #[address], PATENT AND FLUSHING WELL. ORAL FEEDING TUBE IS IN PLACE AND PATIENT RECEIVING GLUCERNA @20ML/HR, TOLERATING WELL. FC DRAINING CLEAR/YELLOW URINE TO THE GRAVITY. PATIENT HAS COLOSTOMY INTACT AND DRAINING WELL. ALL SAFETY MEASURES IN PLACE. HOB ELEVATED, BED IN LOW/LOCKED POSITION, WILL CONTINUE TO MONITOR THE PATIENT CLOSELY.
--- NOTE | 2020-04-02 19:32 | NUR ---
RN NOTES ENDORSED FOR CONTINUITY OF CARE.STILL SEDATED WITH DIPRIVAN AT 20 MCG. NOT ON ANY FORM OF DISTRESS. BREATHING UNLABORED. TOLERATING CURRENT VENT SETTINGS. SATING FINE, NO ACUTE CHANGES WITHIN THE SHIFT. ALL NURSING NEEDS ATTENDED AND MET. SAFETY MEASURES IN PLACE. CALL LIGHT WITHIN REACH
[2020-04-02] MEDS: AZITHROMYCIN 500 MG in IV D5W 250 ML IV SCH (20:34)
[2020-04-02] MEDS: FLUCONAZOLE IN NS 200 MG in PREMIX 1 EA IV SCH ×2 (20:34)
[2020-04-03] VITALS (32 sets, daily range): BP systolic 92–144; BP diastolic 61–94
[2020-04-03] MEDS: BLOOD SUGAR DIAGNOSTIC 1 EACH STRIP IN SCH ×4 (00:11→17:02)
[2020-04-03] MEDS: PROPOFOL 10MG/ML 50ML 50 ML IV PRN ×2 (01:58→05:51)
[2020-04-03 05:06] LABS: BASOPHILS # (AUTO) 0.1 /CMM (0.0-0.2); BASOPHILS % (AUTO) 0.5 % (0.0-2.0); HEMATOCRIT 25 % (39-51); HEMOGLOBIN 8.1 g/dL (13.5-17.5); LYMPHOCYTES # (AUTO) 0.1 /CMM (0.8-4.8); LYMPHOCYTES % (AUTO) 1.4 % (20.0-44.0); MEAN CORPUSCULAR HGB CONC 33 g/dl (31.0-36.0); MEAN CORPUSCULAR VOLUME 80 fL (80-96); MONOCYTES # (AUTO) 0.4 /CMM (0.1-1.30); MONOCYTES % (AUTO) 3.6 % (2.0-12.0); NEUTROPHILS # (AUTO) 9.2 /CMM (1.8-8.9); NEUTROPHILS % (AUTO) 94.5 % (43.0-81.0); PLATELET COUNT (AUTO) 169 /CMM (150-450); RED BLOOD CELL COUNT(AUTO) 3.12 MIL/uL (4.5-6.0); WHITE BLOOD COUNT (AUTO) 9.7 K/uL (4.3-11.0)
[2020-04-03] MEDS: CEFEPIME 2 GM in IV D5W 100 ML IV SCH ×3 (05:09→20:25)
[2020-04-03 05:44] LABS: CALCIUM, SERUM 7.5 mg/dL (8.5-10.1); CREATININE 0.7 mg/dL (0.6-1.3); PHOSPHORUS 2.9 mg/dL (2.5-4.9); POTASSIUM 4.4 mmol/L (3.5-5.1)
--- NOTE | 2020-04-03 07:22 | NUR ---
BUSINESS ANALYTICS ANALYST CLOSING NOTES, PATIENT SEDATED, INTUBATED, TOLERATING CURRENT VENT SETTINGS WELL. NO SOB OR ACUTE DISTRESS NOTED AT THIS TIME. SINUS RHYTHM ON BEDSIDE MONITOR WITH HR IN LOW 80s. IV ACCESS ON BELEN, PICC LINE WITH DIPRIVAN RUNNING AT 20MCG/KG/HR. AND RIGHT HAND #[address], PATENT AND FLUSHING WELL. ORAL FEEDING TUBE IS IN PLACE AND PATIENT RECEIVING GLUCERNA @20ML/HR, TOLERATING WELL. FC DRAINING CLEAR/YELLOW URINE TO THE GRAVITY. PATIENT HAS COLOSTOMY INTACT AND DRAINING WELL. ALL SAFETY MEASURES IN PLACE. HOB ELEVATED, BED IN LOW/LOCKED POSITION, ENDORSED THE PATIENT TO AM RN FOR YASHIRA.
[2020-04-03] MEDS: ACETYLCYSTEINE 10% SOLN 400 MG/4 ML VIAL NEB SCH ×3 (07:35→23:45)
[2020-04-03] MEDS: ACYCLOVIR IV 500 MG in IV D5W 100 ML IV SCH ×2 (08:34→16:23)
[2020-04-03] MEDS: methylPREDNISolone SOD SUCC 40 MG/ML VIAL IV SCH ×2 (08:34→16:22)
[2020-04-03] MEDS: SULFAMETHOXAZOLE/TRIMETHOPRIM 15 ML in IV D5W 250 ML IV SCH ×2 (08:34→18:22)
[2020-04-03] MEDS ORDERED: DC PROPOFOL WHEN EXTUBATED XX PRN (09:00)
[2020-04-03 10:08] LABS: ABG BASE EXCESS -2.5 mmol/L; ABG OXYGEN SATURATION 97.8 % (92.0-98.5); ABG PCO2 31.1 mmHg (35.0-45.0); ABG PH 7.447 (7.350-7.450); ABG PO2 116.7 mmHg (75.0-100.0); AaDO2 132.7 mmHg; COHb 0.5 % (0.5-1.5); MetHb 0.3 % (0.0-1.5); PEEP,BG 5 cm H2O; SITE, ABG Left Radial; VT, ABG 450 mL
--- NOTE | 2020-04-03 10:30 | NUR ---
ICU/RN PT IS EXTUBATED.PLACED ON 6L N/C .SAT O2-98%.V/S STABLE ,AFEBRILE.NO PAIN REPORTED AT THIS TIME.PT IS AWAKE,ALERT.FOLLOWS COMMANDS.GENERALIZED EDEMA PRESENT.COLOSTOMY IN PLACE.MULTIPLY BRUISES AND SKIN TEARS NOTED ALL OVER THE BODY.
[2020-04-03] MEDS: ENOXAPARIN SODIUM 40 MG/0.4 ML DISP.SYRIN SQ SCH (11:47)
--- NOTE | 2020-04-03 18:00 | NUR ---
ICU/RN PM CARE PROVIDED.PT PLACED ON [facility].DUE MEDS ARE GIVEN ORDERED.PT IS IN STABLE CONDITION.V/S STABLE,AFEBRILE.
--- NOTE | 2020-04-03 19:43 | NUR ---
COOK AT SCHOOL OPENING NOTES, RECEIVED PATIENT IN BED AWAKE, A/O X4. PATIENT WAS EXTUBATED THIS MORNING. ON 6 L O2 SATURATING 98%. TOLERATING WELL NO SOB OR ACUTE DISTRESS NOTED AT THIS TIME. SINUS TACHY ON BEDSIDE MONITOR OF105. IV ACCESS ON BELEN PICC LINE, FLUSHED, PATENT NO S/S OF INFILTRATION NOTED. COLOSTOMY BAG IN PLACE, FC DRAINING CLEAR YELLOW URINE TO THE GRAVITY. PATIENT IS NPO. GENERALIZED EDEMA PRESENT. ALL SAFETY MEASURES IMPLANTED. BED IN LOW/LOCKED POSITION. CALL LIGHT WITHIN REACH. WILL CONTINUE TO MONITOR THE PATIENT CLOSELY.
[2020-04-03] MEDS: FLUCONAZOLE IN NS 200 MG in PREMIX 1 EA IV SCH ×2 (20:25)
[2020-04-03] MEDS: AZITHROMYCIN 500 MG in IV D5W 250 ML IV SCH (20:25)
--- NOTE | 2020-04-03 20:27 | NUR ---
PT IS AWAKE ON 4L NC, O2 SAT 99%. NO SOB. CONTINUE TO MONITOR.
[2020-04-04] VITALS (14 sets, daily range): BP systolic 120–149; BP diastolic 72–99
[2020-04-04] MEDS: SULFAMETHOXAZOLE/TRIMETHOPRIM 15 ML in IV D5W 250 ML IV SCH ×3 (00:06→18:48)
[2020-04-04] MEDS: BLOOD SUGAR DIAGNOSTIC 1 EACH STRIP IN SCH ×4 (00:28→18:38)
[2020-04-04 02:08] LABS: *BASOS 0 % (Not Estab.); *EOS 0 % (Not Estab.); *HCT 23.9 % (37.5-51.0); *HGB 7.4 g/dL (13.0-17.7); *IMMATURE GRANULOCYTES 3 % (Not Estab.); *IMMATURE GRANULOCYTES(ABS) 0.3 x10E3/uL (0.0-0.1); *LYMPHOCYTES 3 % (Not Estab.); *LYMPHS, ABSOLUTE 0.3 x10E3/uL (0.7-3.1); *MCH 26.1 pg (26.6-33.0); *MCV 84 fL (79-97); *MONOCYTES 1 % (Not Estab.); *MONOS, ABSOLUTE 0.1 x10E3/uL (0.1-0.9); *NEUTROPHILS 93 % (Not Estab.); *NEUTROPHILS, ABSOLUTE 10.4 x10E3/uL (1.4-7.0); *PLT 197 x10E3/uL (150-450); *RBC 2.84 x10E6/uL (4.14-5.80); *RDW 18.7 % (11.6-15.4)
[2020-04-04 04:47] LABS: BASOPHILS % (AUTO) 0.1 % (0.0-2.0); HEMATOCRIT 28 % (39-51); HEMOGLOBIN 8.9 g/dL (13.5-17.5); LYMPHOCYTES # (AUTO) 0.2 /CMM (0.8-4.8); LYMPHOCYTES % (AUTO) 1.1 % (20.0-44.0); MEAN CORPUSCULAR HGB CONC 32 g/dl (31.0-36.0); MEAN CORPUSCULAR VOLUME 81 fL (80-96); MONOCYTES # (AUTO) 0.5 /CMM (0.1-1.30); MONOCYTES % (AUTO) 3.4 % (2.0-12.0); NEUTROPHILS # (AUTO) 14.5 /CMM (1.8-8.9); NEUTROPHILS % (AUTO) 95.4 % (43.0-81.0); PLATELET COUNT (AUTO) 235 /CMM (150-450); RED BLOOD CELL COUNT(AUTO) 3.43 MIL/uL (4.5-6.0); WHITE BLOOD COUNT (AUTO) 15.1 K/uL (4.3-11.0)
[2020-04-04 04:57] LABS: CALCIUM, SERUM 8.1 mg/dL (8.5-10.1); CREATININE 0.6 mg/dL (0.6-1.3); MAGNESIUM 1.9 mg/dL (1.8-2.4); PHOSPHORUS 2.8 mg/dL (2.5-4.9); POTASSIUM 4.4 mmol/L (3.5-5.1)
[2020-04-04] MEDS: CEFEPIME 2 GM in IV D5W 100 ML IV SCH ×3 (05:08→20:29)
--- NOTE | 2020-04-04 06:54 | NUR ---
MOLD MECHANIC CLOSING NOTE, PATIENT IS AWAKE, A/O X3. ON 4L O2 VIA NS, TOLERATING WELL, NO SOB OR ACUTE DISTRESS NOTED AT THIS TIME. IV ON BELEN PICC LINE PATENT AND FLUSHED WELL. NO S/S OF INFILTRATION NOTED. FC DRAINING TO GRAVITY, COLOSTOMY BAG ATTACHED DRAINING WELL. PATIENT IS NPO, WILL HAVE SWALLOW EVAL THIS MORNING. ALL CARE HAS BEEN PROVIDED, CALL LIGHT WITHIN REACH, BED IN LOW/LOCKED POSITION WILL ENDORSE THE PATIENT TO AM RN FOR YASHIRA.
--- NOTE | 2020-04-04 07:05 | NUR ---
RN NOTES, RECEIVED PATIENT ON BED AWAKE, A/O X4. ON 4 L O2 N/C , O2 SAT WN/, NO SOB NOTED, SINUS TACHY ON BEDSIDE MONITOR HR IN 100'S , IV ACCESS ON BELEN PICC LINE, FLUSHED, PATENT NO S/S OF INFILTRATION NOTED. COLOSTOMY BAG IN PLACE, FC DRAINING CLEAR YELLOW URINE TO THE GRAVITY. PATIENT IS NPO, DUE FOR SWALLOWING EVAL , GENERALIZED EDEMA PRESENT. ALL SAFETY MEASURES IMPLANTED. SR UP x3, BED IN LOW/LOCKED POSITION. CALL LIGHT WITHIN REACH. WILL CONTINUE TO MONITOR THE PATIENT CLOSELY.
[2020-04-04] MEDS: ACETYLCYSTEINE 10% SOLN 400 MG/4 ML VIAL NEB SCH ×3 (07:35→22:59)
--- NOTE | 2020-04-04 08:00 | NUR ---
RN NOTES PT INSTRUCTED AND SHOWED , HOW TO USE INCENTIVE SPIROMETRY .
[2020-04-04] MEDS: methylPREDNISolone SOD SUCC 40 MG/ML VIAL IV SCH ×2 (08:38→18:44)
[2020-04-04] MEDS: ENOXAPARIN SODIUM 40 MG/0.4 ML DISP.SYRIN SQ SCH (08:47)
[2020-04-04] MEDS ORDERED: ENOXAPARIN SODIUM 40 MG/0.4 ML DISP.SYRIN SQ SCH (09:00)
[2020-04-04] MEDS: ACYCLOVIR IV 500 MG in IV D5W 100 ML IV SCH (09:49)
--- NOTE | 2020-04-04 10:40 | NUR ---
RN NOTES REPORT GIVEN TO AME BRUMFIELD FOR CONTINUITY OF CARE , PT TRANSFERRED TO ROOM 322-2 TELE STATUS VIA ACLS PROTOCOL IN STABLE CONDITION, NO BELONGINGS NOTED AT THE THE BEDSIDE.
--- NOTE | 2020-04-04 11:00 | NUR ---
PT. TRANSFERRED VIA BED FROM ICU.PT. IN RM. 322-2.MADE COMFORTABLE.VS TAKEN. DENIES DISCOMFORT. HOOKED UP TO TELE HRATE 128-139.STACH WITH PVC'S AND PAC'S.02 0N CALL GRACE WITHIN REACH. SIDE RAILS UP.COLOSTOMY BAG INTACT,NO LEAKAGE.
[2020-04-04 12:08] LABS: VDRL, CSF Non Reactive (Non Rea:<1:1)
[2020-04-04] MEDS: ENSURE ENLIVE 237 ML LIQUID (VANILLA) PO SCH ×2 (12:30→18:38)
[2020-04-04] MEDS: IPRATROPIUM NEB FS 0.5 MG/2.5 ML AMPUL.NEB NEB PRN (13:36)
--- NOTE | 2020-04-04 18:00 | NUR ---
refused dinner,food at bedside,no appetite at this time.
[2020-04-04] MEDS ORDERED: AZITHROMYCIN 250 MG TABLET PO ONE (21:00)
[2020-04-04] MEDS: FLUCONAZOLE (100 MG) 100 MG TABLET PO SCH (21:20)
[2020-04-04] MEDS: ACYCLOVIR 800 MG TABLET PO SCH (21:20)
[2020-04-05] VITALS: BP 153/83
[2020-04-05] MEDS: BLOOD SUGAR DIAGNOSTIC 1 EACH STRIP IN SCH ×5 (01:15→21:38)
[2020-04-05 04:00] VITALS: BP 144/80
[2020-04-05] MEDS: CEFEPIME 2 GM in IV D5W 100 ML IV SCH ×2 (05:54→12:15)
--- NOTE | 2020-04-05 06:50 | NUR ---
RN CLOSING NOTE PATIENT IS AWAKE, A/O X3. ON 4L O2 VIA NS, TOLERATING WELL, NO SOB OR ACUTE DISTRESS NOTED AT THIS TIME. IV ON BELEN PICC LINE PATENT AND FLUSHED WELL. NO S/S OF INFILTRATION NOTED. FC DRAINING TO GRAVITY, COLOSTOMY BAG ATTACHED DRAINING WELL. PATIENT TOLERATING PO INTAKE BUT HAS POOR APPETITE. DRANK ONE ENSURE DURING THE NIGHT. CALL LIGHT WITHIN REACH, BED IN LOW/LOCKED POSITION
[2020-04-05] MEDS: ACETYLCYSTEINE 10% SOLN 400 MG/4 ML VIAL NEB SCH ×3 (07:35→23:30)
[2020-04-05 08:00] VITALS: BP 157/95
[2020-04-05 08:05] LABS: BASOPHILS % (AUTO) 0.2 % (0.0-2.0); HEMATOCRIT 26 % (39-51); HEMOGLOBIN 8.3 g/dL (13.5-17.5); LYMPHOCYTES # (AUTO) 0.2 /CMM (0.8-4.8); LYMPHOCYTES % (AUTO) 1.4 % (20.0-44.0); MEAN CORPUSCULAR HGB CONC 32 g/dl (31.0-36.0); MEAN CORPUSCULAR VOLUME 80 fL (80-96); MONOCYTES # (AUTO) 0.7 /CMM (0.1-1.30); MONOCYTES % (AUTO) 4.2 % (2.0-12.0); NEUTROPHILS # (AUTO) 16.1 /CMM (1.8-8.9); NEUTROPHILS % (AUTO) 94.2 % (43.0-81.0); PLATELET COUNT (AUTO) 255 /CMM (150-450); RED BLOOD CELL COUNT(AUTO) 3.23 MIL/uL (4.5-6.0); WHITE BLOOD COUNT (AUTO) 17.1 K/uL (4.3-11.0)
[2020-04-05 08:40] LABS: CALCIUM, SERUM 8.2 mg/dL (8.5-10.1); CREATININE 0.6 mg/dL (0.6-1.3); MAGNESIUM 1.9 mg/dL (1.8-2.4); PHOSPHORUS 2.2 mg/dL (2.5-4.9)
[2020-04-05 08:59] LABS: ABG OXYGEN SATURATION 91.5 % (92.0-98.5); ABG PCO2 21.4 mmHg (35.0-45.0); ABG PH 7.453 (7.350-7.450); AaDO2 189.6 mmHg; COHb 0.9 % (0.5-1.5); MetHb 0.3 % (0.0-1.5); O2Hb 90.4 % (94.0-97.0); SITE, ABG Right Radial; VENT MODE, BG Nasal Cannula
[2020-04-05] MEDS: SULFAMETH/TRIMETH 800/160 MG 1 UDTAB TABLET PO SCH (09:00)
[2020-04-05] MEDS: ACYCLOVIR 800 MG TABLET PO SCH ×2 (09:00→17:47)
[2020-04-05] MEDS: methylPREDNISolone SOD SUCC 40 MG/ML VIAL IV SCH (09:00)
[2020-04-05] MEDS: ENSURE ENLIVE 237 ML LIQUID (VANILLA) PO SCH ×2 (09:01→17:47)
[2020-04-05] MEDS: ENOXAPARIN SODIUM 40 MG/0.4 ML DISP.SYRIN SQ SCH (09:01)
[2020-04-05] MEDS ORDERED: NEUTRA PHOS 1 POWD.PACKET PO ONE (11:30)
[2020-04-05 12:00] VITALS: BP 156/87
[2020-04-05 16:00] VITALS: BP 137/85
[2020-04-05] MEDS ORDERED: LEVOFLOXACIN (750 MG) 750 MG TABLET PO SCH (18:30)
--- NOTE | 2020-04-05 18:33 | NUR ---
RN CLOSING NOTE PER INFECTIOUS DX, NEW ORDERS FOR PO LEVAQUIN AND IV VANCO PLACED. PHARMACY DOSING OF VANCO, ADMINISTRATION TIME TO BE CHANGED TO 1929.
[2020-04-05] MEDS ORDERED: FEE PK DOSING 1 MIN EA MC ONE (18:36)
[2020-04-05 20:00] VITALS: BP 127/71
--- NOTE | 2020-04-05 20:00 | NUR ---
MS3 RN NOTES: OPENING RECEIVED PATIENT ON BED AWAKE, A/O X4. ON 4 L O2 N/C , O2 SAT WN/, NO SOB NOTED, S IV ACCESS ON BELEN PICC LINE, FLUSHED, PATENT NO S/S OF INFILTRATION NOTED. COLOSTOMY BAG IN PLACE. GENERALIZED EDEMA PRESENT. ALL SAFETY MEASURES IMPLANTED. SR UP x3, BED IN LOW/LOCKED POSITION. CALL LIGHT WITHIN REACH. WILL CONTINUE TO MONITOR THE PATIENT CLOSELY.
[2020-04-05] MEDS: VANCOMYCIN 1 GM in IV D5W 250 ML IV SCH (21:10)
[2020-04-05] MEDS: FLUCONAZOLE (100 MG) 100 MG TABLET PO SCH (21:42)
[2020-04-06] VITALS (23 sets, daily range): BP systolic 58–121; BP diastolic 24–74
[2020-04-06] MEDS: BLOOD SUGAR DIAGNOSTIC 1 EACH STRIP IN SCH ×3 (06:33→18:05)
--- NOTE | 2020-04-06 06:51 | NUR ---
RN CLOSING NOTE PATIENT IS AWAKE, A/O X3. ON 3L O2 VIA NS, TOLERATING WELL, NO SOB OR ACUTE DISTRESS NOTED AT THIS TIME. IV ON BELEN PICC LINE PATENT AND FLUSHED WELL. NO S/S OF INFILTRATION NOTED. FC DRAINING WELL. COLOSTOMY BAG ATTACHED DRAINING WELL W/ NO S/SOF LEAKAGE. DRESSING CHANGED PT TOLERATED WELL. CALL LIGHT WITHIN REACH, BED IN LOW/LOCKED POSITION
[2020-04-06 07:30] LABS: BASOPHILS % (AUTO) 0.1 % (0.0-2.0); HEMATOCRIT 24 % (39-51); HEMOGLOBIN 7.6 g/dL (13.5-17.5); LYMPHOCYTES # (AUTO) 0.2 /CMM (0.8-4.8); LYMPHOCYTES % (AUTO) 0.8 % (20.0-44.0); MEAN CORPUSCULAR HGB CONC 32 g/dl (31.0-36.0); MEAN CORPUSCULAR VOLUME 80 fL (80-96); MONOCYTES # (AUTO) 0.9 /CMM (0.1-1.30); MONOCYTES % (AUTO) 4.2 % (2.0-12.0); NEUTROPHILS % (AUTO) 94.9 % (43.0-81.0); PLATELET COUNT (AUTO) 248 /CMM (150-450); RED BLOOD CELL COUNT(AUTO) 2.99 MIL/uL (4.5-6.0); WHITE BLOOD COUNT (AUTO) 22.2 K/uL (4.3-11.0)
--- NOTE | 2020-04-06 07:30 | NUR ---
Tele/RN Opening note Received patient in bed, AO x 2, confuse, able to responds all stimuli. Pt denies pain or any discomfort. Skin is warm to touch, kept clean/dry, intact picc line site. Pt on oxygen at 3LPM, respiratory even and unlabored. Keep low position of the bed with locked wheel and head of bed for secure airway. Call light within reach, will continue to monitor.
[2020-04-06] MEDS: VANCOMYCIN 1 GM in IV D5W 250 ML IV SCH (07:34)
[2020-04-06] MEDS: ACETYLCYSTEINE 10% SOLN 400 MG/4 ML VIAL NEB SCH ×3 (07:40→23:26)
[2020-04-06 07:41] LABS: CALCIUM, SERUM 8.9 mg/dL (8.5-10.1); CREATININE 0.8 mg/dL (0.6-1.3); MAGNESIUM 1.8 mg/dL (1.8-2.4); PHOSPHORUS 3.4 mg/dL (2.5-4.9); POTASSIUM 4.3 mmol/L (3.5-5.1)
[2020-04-06 08:07] LABS: *WEST NILE VIRUS IgG, CSF Positive (Negative)
[2020-04-06] MEDS: ACYCLOVIR 800 MG TABLET PO SCH ×2 (08:41→18:38)
[2020-04-06] MEDS: SULFAMETH/TRIMETH 800/160 MG 1 UDTAB TABLET PO SCH (08:41)
[2020-04-06] MEDS: ENSURE ENLIVE 237 ML LIQUID (VANILLA) PO SCH ×2 (08:41→17:00)
[2020-04-06] MEDS: ENOXAPARIN SODIUM 40 MG/0.4 ML DISP.SYRIN SQ SCH (08:44)
[2020-04-06 09:58] LABS: ABG BASE EXCESS -1.1 mmol/L; ABG OXYGEN SATURATION 95.2 % (92.0-98.5); ABG PCO2 39.7 mmHg (35.0-45.0); ABG PH 7.394 (7.350-7.450); ABG PO2 88.9 mmHg (75.0-100.0); AaDO2 295.2 mmHg; COHb 1.4 % (0.5-1.5); MetHb 0.1 % (0.0-1.5); O2Hb 93.8 % (94.0-97.0); SITE, ABG Left Radial
--- NOTE | 2020-04-06 10:00 | NUR ---
Patient noticed decrease oxygen at 3PLM via N/C, RT increased oxygen titrate to 6LPM with simple mask. O2sat unstable between 86-87% with fluctuate at 6LPM with mask, ABG initiated. Dr. Gonzales made aware regarding above. No new order due to ABG result was normal. Pt transfer to [facility] status. Will continue to observe closely.
[2020-04-06 10:07] LABS: *WEST NILE VIRUS IgM, CSF Negative (Negative)
[2020-04-06 11:12] LABS: BAND % (MANUAL) 1 % (0.0-5.0); LYMPHOCYTES % (MANUAL) 0 % (16-48); NEUTROPHILS % (MANUAL) 98 (42-76)
[2020-04-06 11:13] LABS: MONOCYTES % (MANUAL) 1 % (0-11.0)
--- NOTE | 2020-04-06 12:00 | NUR ---
Patient remain upright position on bed, provided suctioning. O2sat 86 to 95 % fluctuating at 6LPM. Noticed patient confuse so taking off the oxygen mask sometimes. Will continue to monitor.
--- NOTE | 2020-04-06 16:20 | NUR ---
Christopher noticed decrease O2sat between 60's -70's and output 600 cc from NG tube suction. Informed Dr. Gonzales, received order stat ABG, and transfer to ICU. Pt transferred ICU and given report Neris/RN.
[2020-04-06 16:49] LABS: ABG BASE EXCESS -2.5 mmol/L; ABG OXYGEN SATURATION 71.3 % (92.0-98.5); ABG PCO2 88.9 mmHg (35.0-45.0); ABG PH 7.109 (7.350-7.450); ABG PO2 52.9 mmHg (75.0-100.0); AaDO2 277.1 mmHg; MetHb 0.9 % (0.0-1.5); O2Hb 69.9 % (94.0-97.0); SITE, ABG Left Radial
--- NOTE | 2020-04-06 16:50 | NUR ---
RT NOTE CRITICAL ABG RESULTS RELAYED TO CHARGE NURSE AND PAVEL BRUMFIELD
--- NOTE | 2020-04-06 17:01 | NUR ---
FIBERGLASS FABRICATOR NOTE Patient brought here in ICU due to desaturation. Received report from [place]. Patient was hooked into monitoring and NG suctioning. Plan to put Bipap for more stable oxygenation. Daughter of patient called to get an update. Informed patient was transferred here. Family understood.
[2020-04-06] MEDS ORDERED: BISACODYL SUPP (10 MG) 10 MG/SUPP.RECT SUPP.RECT RC ONE (17:30)
[2020-04-06] MEDS ORDERED: PHENYLEPHRINE 50 MG in IV NS 0.9% 245 ML IV PRN ×2 (17:30→18:30)
--- NOTE | 2020-04-06 17:30 | NUR ---
HOCKEY SCOUT NOTE Received order from Dr. Mendez to intubate patient.
--- NOTE | 2020-04-06 17:45 | NUR ---
MANAGER GENERAL NOTE Dr. Moreno ordered Etomidate 20mg. IV push BELEN midline.
--- NOTE | 2020-04-06 17:50 | NUR ---
RT NOTE PT ORALLY INTUBATED BY MD GO WITH 8.0 ETT @ 24 CM AT LIP. POSITIVE COLOR CHANGE AND EQUAL BILATERAL CHEST RISE. ETT SECURED. VENT ALARMS ARE ON AND AUDIBLE. VENT PLUGGED INTO RED OUTLET. AMBU BAG AT BEDSIDE. ZERO DISTRESS NOTED AT THIS TIME. Addendum: 04/06/20 at 1809 by ABBI DODD RT VENT SETTINGS PER MD HAGEN.
[2020-04-06] MEDS: PROPOFOL 100 ML IV PRN (18:16)
--- NOTE | 2020-04-06 19:05 | NUR ---
ICU CLOSING NOTE Patient in bed asleep sedated. No signs of distress. Patient is full code. Transferred from room 322-2. [place] Precaution. Patient was intubated ETT 07/23 AC 16 TV 500 fio2 100 Peep 5. CXR confirmed placement term 4.0cm. Sinus Tachycardia @ 110 bpm. Patient has colostomy bag intact. Has NG tube for intermittent suction. 200ml taken out since 1729. Bilateral soft restraints in place. Diprivan started @ 5mcg currently held for decreased BP. Daryl @ 2mcg tolerating well. Safety measures reinforced. Siderails up x2. Bed locked and on lowest position. Will endorse to manufacturing supervisor 2nd shift nurse for shahab.
--- NOTE | 2020-04-06 19:25 | NUR ---
RT NOTE: RECEIVED PATIENT ON [facility] VENT PER MD ORDERS. PT IS ORALLY INTUBATED WITH 8.0 ETT SECURED AT 24 CM AT THE LIP. CONTRIBUTION SOLICITOR DONE. ALARMS ON AND AUDIBLE. VENT PLUGGED INTO RED OUTLET. ALONDRA MALIK AT [facility]. WILL CONT TO MONITOR PT. Addendum: 04/07/20 at 0431 by JASON SWEET RT Amended: Links added.
[2020-04-06 19:43] LABS: ABG BASE EXCESS -2.8 mmol/L; ABG OXYGEN SATURATION 99.5 % (92.0-98.5); ABG PCO2 32.4 mmHg (35.0-45.0); ABG PO2 265.5 mmHg (75.0-100.0); AaDO2 415.1 mmHg; MetHb 0.3 % (0.0-1.5); O2Hb 98.2 % (94.0-97.0); PEEP,BG 5 cm H2O; SITE, ABG Left Radial; VENT MODE, BG AC 16; VT, ABG 500 mL
[2020-04-06] MEDS ORDERED: ZOSYN IVPB 3.375 G in IV D5W 50ml IV ONE (20:00)
--- NOTE | 2020-04-06 20:35 | NUR ---
POST ABG. INFORMED BY CHARGE NURSE THAT DR. HAGEN PUT ORDERS TO TITRATE FIO2 TO 65% AT THIS TIME. Addendum: 04/07/20 at 0418 by JASON SWEET RT Amended: Links added.
[2020-04-06] MEDS ORDERED: BISACODYL SUPP (10 MG) 10 MG/SUPP.RECT SUPP.RECT RC PRN (21:30)
[2020-04-06] MEDS: FLUCONAZOLE (100 MG) 100 MG TABLET PO SCH (21:54)
[2020-04-06] MEDS ORDERED: NOREPINEPHRINE 32 MG in IV NS 0.9% 218 ML IV PRN (22:00)
[2020-04-06] MEDS: IPRATROPIUM NEB FS 0.5 MG/2.5 ML AMPUL.NEB NEB PRN (23:26)
[2020-04-07] VITALS (108 sets, daily range): BP systolic 61–152; BP diastolic 21–107
--- NOTE | 2020-04-07 00:04 | NUR ---
PLACED ANCHORFAST ON PATIENT; SECURED AT @ 24 CM AT LIP.
[2020-04-07] MEDS: PHENYLEPHRINE 100 MG in IV NS 0.9% 240 ML IV PRN ×2 (00:21→17:24)
[2020-04-07] MEDS: BLOOD SUGAR DIAGNOSTIC 1 EACH STRIP IN SCH ×5 (00:33→23:41)
[2020-04-07 04:09] LABS: BASOPHILS # (AUTO) 0.1 /CMM (0.0-0.2); BASOPHILS % (AUTO) 0.3 % (0.0-2.0); HEMATOCRIT 22 % (39-51); HEMOGLOBIN 7.1 g/dL (13.5-17.5); LYMPHOCYTES # (AUTO) 0.4 /CMM (0.8-4.8); LYMPHOCYTES % (AUTO) 1.9 % (20.0-44.0); MEAN CORPUSCULAR HGB CONC 32 g/dl (31.0-36.0); MEAN CORPUSCULAR VOLUME 80 fL (80-96); MONOCYTES # (AUTO) 0.7 /CMM (0.1-1.30); MONOCYTES % (AUTO) 3.2 % (2.0-12.0); NEUTROPHILS # (AUTO) 21.7 /CMM (1.8-8.9); NEUTROPHILS % (AUTO) 94.6 % (43.0-81.0); PLATELET COUNT (AUTO) 236 /CMM (150-450); RED BLOOD CELL COUNT(AUTO) 2.75 MIL/uL (4.5-6.0); WHITE BLOOD COUNT (AUTO) 22.9 K/uL (4.3-11.0)
[2020-04-07] MEDS: PIPERACILLIN /TAZOBACTAM 3.375 G in IV D5W 100 ML IV SCH ×3 (04:51→21:11)
[2020-04-07 05:20] LABS: CALCIUM, SERUM 8.4 mg/dL (8.5-10.1); CREATININE 1.2 mg/dL (0.6-1.3); MAGNESIUM 1.8 mg/dL (1.8-2.4); PHOSPHORUS 3.7 mg/dL (2.5-4.9); POTASSIUM 4.3 mmol/L (3.5-5.1)
[2020-04-07 05:39] LABS: LYMPHOCYTES % (MANUAL) 2 % (16-48); MONOCYTES % (MANUAL) 3 % (0-11.0); NEUTROPHILS % (MANUAL) 95 (42-76)
[2020-04-07] MEDS: ACETYLCYSTEINE 10% SOLN 400 MG/4 ML VIAL NEB SCH ×4 (07:35→23:20)
[2020-04-07] MEDS: ENSURE ENLIVE 237 ML LIQUID (VANILLA) PO SCH ×2 (08:03→16:23)
[2020-04-07] MEDS: ENOXAPARIN SODIUM 40 MG/0.4 ML DISP.SYRIN SQ SCH (08:03)
[2020-04-07 08:07] LABS: ABG BASE EXCESS 3.5 mmol/L; ABG OXYGEN SATURATION 98.5 % (92.0-98.5); ABG PCO2 27.8 mmHg (35.0-45.0); ABG PH 7.577 (7.350-7.450); ABG PO2 128.6 mmHg (75.0-100.0); AaDO2 304.6 mmHg; COHb 1.2 % (0.5-1.5); MetHb 0.3 % (0.0-1.5); SITE, ABG Left Radial
--- NOTE | 2020-04-07 08:09 | NUR ---
RT NOTE CRITICAL ABG RESULT RELAYED TO CHARGE NURSE AND BRISSA JACKSON.
[2020-04-07] MEDS ORDERED: IV NS 0.9% 1,000 ML IV PRN (08:12)
[2020-04-07] MEDS ORDERED: HYDROCORTISONE SOD SUCCINATE 100 MG/2 ML VIAL IV SCH (09:00)
[2020-04-07] MEDS: ACYCLOVIR 800 MG TABLET PO SCH ×2 (09:27→17:23)
[2020-04-07] MEDS ORDERED: BISACODYL SUPP (10 MG) 10 MG/SUPP.RECT SUPP.RECT RC ONE (10:00)
[2020-04-07] MEDS ORDERED: PANTOPRAZOLE 40 MG VIAL IV SCH (14:00)
[2020-04-07] MEDS: IV D5/ 0.9% NACL 1,000 ML IV PRN (15:14)
--- NOTE | 2020-04-07 15:14 | NUR ---
RT NOTES: PATIENT RECEIVED ORALLY INTUBATED WITH 8.0 ETT SECURED AT 24 CM MID LIP LINE ON MECHANICAL VENT. AM ABG DONE AND REPORTED TO . VENT CHANGES MADE PER MD ORDERS. VENT ALARMS VERIFIED AND AUDIBLE. VENT PLUGGED INTO RED OUTLET. AMBU BAG AT [facility].
[2020-04-07] MEDS: HYDROCORTISONE SOD SUCCINATE 100 MG/2 ML VIAL IV SCH (17:23)
[2020-04-07] MEDS: PROPOFOL 100 ML IV PRN (17:24)
--- NOTE | 2020-04-07 19:00 | NUR ---
RECEIVED PATIENT ORALLY INTUBATED TO THE VENTILATOR ON AC MODE,MILDLY SEDATED ON PROPOFOL DRIP ,CALM AND COOPERATIVE,EASILY AWAKENS.NOT IN ANY RESPIRATORY DISTRESS,BRETAHING REGULAR AND NON LABORED.ON NEOSYNEPHRINE DRIP FOR BP SUPPORT(TITRATE TO SBP 90 ), OGT 64 CM @ LIP TO LIWS WITH LIGHT BROWNISH DRAINAGE. COLOSTOMY # LLQ WITH MINIMAL OUTPUT(-) BLEEDING. COMFORT CARE DONE,NEEDS ATTENDED, FOLLOWS SIMPLE COMMANDS.
[2020-04-07] MEDS: FLUCONAZOLE (100 MG) 100 MG TABLET PO SCH (21:11)
[2020-04-08] VITALS (103 sets, daily range): BP systolic 72–180; BP diastolic 36–153
--- NOTE | 2020-04-08 | NUR ---
REMAINS STABLE,STILL ON NEOSYNEPHRINE DRIPNOW @ 3 MCG/KG/MIN.REMAINS MILDLY SEDATED,EASILY AWAKENS,FOLLOWS COMMANDS.
[2020-04-08] MEDS: IV D5/ 0.9% NACL 1,000 ML IV PRN ×2 (01:35→12:25)
[2020-04-08] MEDS: HYDROCORTISONE SOD SUCCINATE 100 MG/2 ML VIAL IV SCH ×3 (01:37→16:17)
--- NOTE | 2020-04-08 04:00 | NUR ---
remains stable. OGT DRAINAGE NOTED TO BE GREENISH/BILEOUS NOW ,NO BLEEDING.
[2020-04-08 04:29] LABS: ALBUMIN 1.5 g/dL (3.4-5.0); BILIRUBIN,TOTAL 0.3 mg/dL (0.2-1.0); CALCIUM, SERUM 7.9 mg/dL (8.5-10.1); CREATININE 1.1 mg/dL (0.6-1.3); MAGNESIUM 1.8 mg/dL (1.8-2.4); PHOSPHORUS 3.4 mg/dL (2.5-4.9); POTASSIUM 3.3 mmol/L (3.5-5.1); TOTAL PROTEIN, SERUM 3.7 g/dL (6.4-8.2)
[2020-04-08] MEDS: PHENYLEPHRINE 100 MG in IV NS 0.9% 240 ML IV PRN (04:29)
[2020-04-08] MEDS: PIPERACILLIN /TAZOBACTAM 3.375 G in IV D5W 100 ML IV SCH ×3 (04:30→21:07)
[2020-04-08 04:34] LABS: OCCULT BLOOD STOOL POSITIVE (NEGATIVE)
--- NOTE | 2020-04-08 05:30 | NUR ---
CBC REPEATED VIA NEEDLE STICK.(NOT FROM THE LINE)
[2020-04-08 05:48] LABS: BASOPHILS # (AUTO) 0.1 /CMM (0.0-0.2); BASOPHILS % (AUTO) 0.2 % (0.0-2.0); LYMPHOCYTES # (AUTO) 0.2 /CMM (0.8-4.8); LYMPHOCYTES % (AUTO) 1.1 % (20.0-44.0); MEAN CORPUSCULAR HGB CONC 32 g/dl (31.0-36.0); MEAN CORPUSCULAR VOLUME 81 fL (80-96); MONOCYTES # (AUTO) 0.8 /CMM (0.1-1.30); MONOCYTES % (AUTO) 3.9 % (2.0-12.0); NEUTROPHILS % (AUTO) 94.8 % (43.0-81.0); PLATELET COUNT (AUTO) 205 /CMM (150-450); RED BLOOD CELL COUNT(AUTO) 2.25 MIL/uL (4.5-6.0); WHITE BLOOD COUNT (AUTO) 21.1 K/uL (4.3-11.0)
[2020-04-08 05:50] LABS: HEMATOCRIT 18 % (39-51); HEMOGLOBIN 5.8 g/dL (13.5-17.5)
--- NOTE | 2020-04-08 06:00 | NUR ---
HGB CAME BACK 5.8, HCT=18 (FROM A NEEDLE STICK ,NOT FROM LINE). CALLED MD SERVICE TO RELAY MESSAGE.AWAITING RESPONSE
[2020-04-08] MEDS: BLOOD SUGAR DIAGNOSTIC 1 EACH STRIP IN SCH ×3 (06:04→19:17)
[2020-04-08 06:13] LABS: LYMPHOCYTES % (MANUAL) 1 % (16-48); NEUTROPHILS % (MANUAL) 96 (42-76)
[2020-04-08 06:15] LABS: MONOCYTES % (MANUAL) 3 % (0-11.0)
--- NOTE | 2020-04-08 06:25 | NUR ---
STEVENSON MCCOLLUM RESPONDED, MADE HIM AWARE OF HGB OF 5.8, ORDERED TO TRANSFUSE 1 UNIT PRBC.
--- NOTE | 2020-04-08 06:30 | NUR ---
CALLED FAMILY FOR TRANSFUSION CONSENT,MESSAGE LEFT NO ANSWER.(CALLED SON)
[2020-04-08] MEDS: ACETYLCYSTEINE 10% SOLN 400 MG/4 ML VIAL NEB SCH ×2 (07:23→15:23)
[2020-04-08] MEDS: ENOXAPARIN SODIUM 40 MG/0.4 ML DISP.SYRIN SQ SCH (07:52)
[2020-04-08] MEDS: ENSURE ENLIVE 237 ML LIQUID (VANILLA) PO SCH ×2 (07:53→17:00)
--- NOTE | 2020-04-08 08:00 | NUR ---
Sedation Vacation Notes Patient able to make eye contact and follow command "squeeze my fingers". Nods yes or no appropriately to questions.
[2020-04-08 08:02] LABS: ABG BASE EXCESS -0.4 mmol/L; ABG PCO2 31.9 mmHg (35.0-45.0); ABG PH 7.479 (7.350-7.450); ABG PO2 125.8 mmHg (75.0-100.0); AaDO2 122.7 mmHg; COHb 0.9 % (0.5-1.5); MetHb 0.3 % (0.0-1.5); O2Hb 96.8 % (94.0-97.0); PEEP,BG 5 cm H2O; SITE, ABG Left Brachial; VT, ABG 450 mL
[2020-04-08] MEDS: ACYCLOVIR 800 MG TABLET PO SCH ×2 (09:14→16:17)
--- NOTE | 2020-04-08 09:18 | NUR ---
FIO2 DECREASED FROM 40% TO 30% DUE TO PAO2 126 AND SPO2 100% Addendum: 04/08/20 at 0918 by JEANNE GARG RT Amended: Links added.
[2020-04-08] MEDS: POTASSIUM CL. PREMIX PERIPHER. 50 ML IV SCH ×2 (12:25→13:18)
[2020-04-08] MEDS: PROPOFOL 100 ML IV PRN (12:26)
[2020-04-08] MEDS ORDERED: NA PHOS,M-B/NA PHOS,DI-BA 1 EA ENEMA RC ONE (15:30)
[2020-04-08 16:36] LABS: HEMOGLOBIN 6.9 g/dL (13.5-17.5)
--- NOTE | 2020-04-08 19:40 | NUR ---
CASHIER OPENING NOTES, RECEIVED PATIENT INTUBATED/SEDATED, TOLERATING VENT SETTING AT THIS TIME. NO SOB OR ACUTE DISTRESS NOTED AT THIS TIME. NGT TUBE IS CONNECTED TO SUCTION, GREEN DRAINAGE NOTED. NOTED ECTOCOLOSTOMY BAG ATTACHED AND DRAINING WELL. EDEMA NOTED ON UPPER EXTREMITIES. IV NOTED ON BELEN PICC LINE INFUSING PROPOFOL @ 25MCG/KG/MIN AND CALEB @1.4 MCG/KG/MIN. AND IVF @100ML/HR. FC DRAINING TO THE GRAVITY CLEAR YELLOW URIN. PATIENT IS NPO AT THIS TIME. BED IS IN LOW/LOCKED POSITION, WILL CONTINUE TO MONITOR.
--- NOTE | 2020-04-08 19:52 | NUR ---
MILL HELPER Shift Summary Patient sedated at this time, see sedation vacation notes. Titration to 30% FiO2. Tolerating well. Transfused 1U RBC as ordered, no reaction noted. HGB redrawn 6.9, Dior Gonzales aware, order for redraw h&h @2200 received. NGT to LIS put out 100mL of greenish output. Colostomy putout 30mL after fleet enema via colostomy. Trinidad 450mL out this shift. CHARLY weeping edema. No restraints. Wound care as ordered. BELEN PICC infusing propofol @25mcg/kg/min, DARYL@1.4mcg/kg/min, IVF @100mL/hr. Y sites (propofol with K+, Daryl with Zosyn) compatible. Patient remains NPO. Small bowel follow through ordered, consent received from son, placed in chart. 50CC air via NGT blue+clear as ordered Qshift.
[2020-04-08] MEDS: FLUCONAZOLE (100 MG) 100 MG TABLET PO SCH (21:06)
[2020-04-08] MEDS: PANTOPRAZOLE 40 MG VIAL IV SCH (21:07)
[2020-04-08 22:04] LABS: HEMOGLOBIN 7.3 g/dL (13.5-17.5)
[2020-04-09] VITALS (98 sets, daily range): BP systolic 72–154; BP diastolic 42–100
[2020-04-09] MEDS: ACETYLCYSTEINE 10% SOLN 400 MG/4 ML VIAL NEB SCH ×3 (00:22→15:30)
[2020-04-09] MEDS: BLOOD SUGAR DIAGNOSTIC 1 EACH STRIP IN SCH ×5 (00:27→18:16)
[2020-04-09] MEDS: HYDROCORTISONE SOD SUCCINATE 100 MG/2 ML VIAL IV SCH ×3 (02:01→16:14)
[2020-04-09] MEDS: PROPOFOL 100 ML IV PRN ×3 (03:49→23:16)
[2020-04-09] MEDS: IV D5/ 0.9% NACL 1,000 ML IV PRN ×2 (03:49→13:56)
[2020-04-09 04:54] LABS: BASOPHILS # (AUTO) 0.2 /CMM (0.0-0.2); BASOPHILS % (AUTO) 1.4 % (0.0-2.0); HEMATOCRIT 23 % (39-51); HEMOGLOBIN 7.6 g/dL (13.5-17.5); LYMPHOCYTES # (AUTO) 0.2 /CMM (0.8-4.8); LYMPHOCYTES % (AUTO) 0.9 % (20.0-44.0); MEAN CORPUSCULAR HGB CONC 33 g/dl (31.0-36.0); MEAN CORPUSCULAR VOLUME 84 fL (80-96); MONOCYTES # (AUTO) 0.7 /CMM (0.1-1.30); MONOCYTES % (AUTO) 4.5 % (2.0-12.0); NEUTROPHILS # (AUTO) 15.3 /CMM (1.8-8.9); NEUTROPHILS % (AUTO) 93.2 % (43.0-81.0); PLATELET COUNT (AUTO) 183 /CMM (150-450); RED BLOOD CELL COUNT(AUTO) 2.73 MIL/uL (4.5-6.0); WHITE BLOOD COUNT (AUTO) 16.4 K/uL (4.3-11.0)
[2020-04-09 05:13] LABS: CALCIUM, SERUM 7.9 mg/dL (8.5-10.1); CREATININE 1.1 mg/dL (0.6-1.3); MAGNESIUM 1.7 mg/dL (1.8-2.4); PHOSPHORUS 3.1 mg/dL (2.5-4.9); POTASSIUM 2.9 mmol/L (3.5-5.1)
[2020-04-09] MEDS: PIPERACILLIN /TAZOBACTAM 3.375 G in IV D5W 100 ML IV SCH ×3 (05:46→21:21)
--- NOTE | 2020-04-09 07:40 | NUR ---
ICU/RN PT IS INTUBATED ON THE VENT AC MODE,FIO2-30%,SAT O2-99%, AFEBRILE.NO PAIN REPORTED AT THIS TIME.PT IS SEDATED WITH PROPOFOL.HR-45 SINUS BRADYCARDIA.NG TUBE CONNECTED TO SUCTION.RIGHT PICC LINE IN PLACE PT IS ON NEOSYNEPHRINE DRIP.IV FLUIDS.F/C IN 0PLACE DRAINING WITH YELLOW URINE.COLOSTOMY BAG DRAINING WITH LIQUID STOOL.GENERALIZED EDEMA PRESENT.MULTIPLY BRUISES AND SKIN TEARS NOTED ALL OVER THE BODY,LOWER BACK WOUND COVERED WITH MEPILEX. LABS REVIEW. NOTIFIED.NEW ORDERS RECEIVED.
[2020-04-09] MEDS: ACYCLOVIR 800 MG TABLET PO SCH (08:28)
[2020-04-09] MEDS: PANTOPRAZOLE 40 MG VIAL IV SCH ×2 (08:28→21:21)
[2020-04-09] MEDS: ENOXAPARIN SODIUM 40 MG/0.4 ML DISP.SYRIN SQ SCH (08:30)
[2020-04-09] MEDS: ENSURE ENLIVE 237 ML LIQUID (VANILLA) PO SCH ×2 (08:31→16:14)
--- NOTE | 2020-04-09 08:58 | NUR ---
ICU/RN DUE MEDS ARE GIVEN ORDERED.SUCTION PROVIDED. PT HAS WHITE SECRETION. REPOSITION FOR COMFORT.
[2020-04-09] MEDS: Magnesium 1GM/D5W 100ML PREMIX 100 ML IV SCH ×2 (09:05→09:58)
[2020-04-09] MEDS: POTASSIUM CL. PREMIX PERIPHER. 50 ML IV SCH ×5 (09:05→12:51)
[2020-04-09] MEDS: PHENYLEPHRINE 100 MG in IV NS 0.9% 240 ML IV PRN ×2 (10:00→14:00)
--- NOTE | 2020-04-09 10:00 | NUR ---
ICU/RN SEDATION VACATION PROVIDED.PT OPEN HIS EYES,FOLLOW COMMANDS ,AGITATED.NO STABLE TO BE WEAN OFF THE VENT.PLACED BACK ON PROPOFOL.CONTINUE MONITORING.
[2020-04-09] MEDS ORDERED: DIATR MEGLU/DIATRIZOATE SODIUM 120 ML BOTTLE (GASTROGRAPHIN) ONE (10:02)
[2020-04-09] MEDS ORDERED: DEXTROSE 50%-WATER 50 ML DISP.SYRIN IV PRN (12:00)
[2020-04-09] MEDS: INSULIN REGULAR, HUMAN 100 UNIT/ML 3 ML VIAL SQ PRN ×2 (12:24→18:17)
[2020-04-09 15:29] LABS: APPEARANCE,URINE CLEAR (CLEAR); BILIRUBIN,URINE NEGATIVE (NEGATIVE); BLOOD, URINE MODERATE Ery/uL (NEGATIVE); COLOR,URINE YELLOW (YELLOW); KETONES,URINE NEGATIVE (NEGATIVE); LEUKOCYTE ESTERASE ,URINE NEGATIVE (NEGATIVE); NITRITE, URINE NEGATIVE (NEGATIVE); PH,URINE 5.5 (5.0-8.0); PROTEIN,URINE 30 mg/dl (NEGATIVE); UGLUCOSE NEGATIVE (NEGATIVE); UROBILINOGEN,URINE 0.2 EU/dL (0.2)
--- NOTE | 2020-04-09 15:29 | NUR ---
ICU/RN PM CARE PROVIDED.PT COLOSTOMY HAS MORE LIQUID BROWN STOOL,SOME STOOL COMING OUT FROM THE RECTUM,WOUND DRESSING DONE ORDERED.SUCTION PROVIDED,REPOSITION FOR COMFORT.ELECTROLYTES IV REPLACED ORDERED.CONTINUE MONITORING.DR MAGDALENO SEEN THE PT.
[2020-04-09 15:33] LABS: CREATININE, URINE 27.5 MG/DL (30.0-125.0); URINE TOTAL PROTEIN 95.7 mg/dL (0-11.9)
[2020-04-09 15:41] LABS: BACTERIA,URINE 2+ /HPF (None Seen); SQUAMOUS EPITHELIAL CELL,UR 0-2 /HPF (None Seen); URINE AMORPHOUS URATE Few /HPF (None Seen)
[2020-04-09 16:14] LABS: EOSINOPHIL,URINE None Seen
[2020-04-09] MEDS: ACYCLOVIR 200 MG CAPSULE PO SCH (16:14)
--- NOTE | 2020-04-09 19:40 | NUR ---
RN NOTES PATIENT IS ORALLY INTUBATED WITH ETT 7.5 AND 24 CM AT LIP LINE. WITH VENT SETTING AC 12 TV 450 FIO2 30% AND PEEP 5 . SEDATED WITH DIPRIVAN @ 25 MCG/KG/MIN BUT PATIENT STARTED TO MOVE A MORE, SEDATION INCREASE ORDERED. SR ON TELE MONITOR. NO ACUTE RESPIRATORY DISTRESS. SUCTION WITH YELLOWISH COLOR THIN SECRETION. NGT ON LIS. IV SITE ON BELEN PICC LINE RUNNING WITH PROPOFOL @ 30 MCG/KG/MIN , CALEB @ 0.8 MCG/KG/MIN WILL TITRATE PROTOCOL ORDERED AND D5 NS @ 100 ML/HR ALL INTACT AND PATENT. PRESENT WITH WHITE CATH DRAINED VIA GRAVITY , AND COLOSTOMY. KEPT PT CLEAN AND DRY. TURN AND REPOSITION FOR SKIN CARE. WILL CLOSELY MONITOR.
[2020-04-09] MEDS: FLUCONAZOLE (100 MG) 100 MG TABLET PO SCH (21:21)
[2020-04-10] VITALS (64 sets, daily range): BP systolic 93–133; BP diastolic 59–96
[2020-04-10] MEDS: ACETYLCYSTEINE 10% SOLN 400 MG/4 ML VIAL NEB SCH ×4 (00:06→23:28)
[2020-04-10] MEDS: IV D5/ 0.9% NACL 1,000 ML IV PRN ×3 (00:06→21:05)
[2020-04-10] MEDS: HYDROCORTISONE SOD SUCCINATE 100 MG/2 ML VIAL IV SCH ×3 (00:35→16:32)
[2020-04-10] MEDS: BLOOD SUGAR DIAGNOSTIC 1 EACH STRIP IN SCH ×4 (00:50→17:51)
[2020-04-10 01:06] LABS: CMV, IgM <30.0 AU/mL (0.0-29.9)
[2020-04-10 04:46] LABS: BASOPHILS # (AUTO) 0.1 /CMM (0.0-0.2); BASOPHILS % (AUTO) 0.9 % (0.0-2.0); HEMATOCRIT 21 % (39-51); LYMPHOCYTES # (AUTO) 0.1 /CMM (0.8-4.8); MEAN CORPUSCULAR HGB CONC 33 g/dl (31.0-36.0); MEAN CORPUSCULAR VOLUME 85 fL (80-96); MONOCYTES # (AUTO) 0.6 /CMM (0.1-1.30); MONOCYTES % (AUTO) 5.3 % (2.0-12.0); NEUTROPHILS # (AUTO) 10.5 /CMM (1.8-8.9); NEUTROPHILS % (AUTO) 92.8 % (43.0-81.0); PLATELET COUNT (AUTO) 137 /CMM (150-450); RED BLOOD CELL COUNT(AUTO) 2.45 MIL/uL (4.5-6.0); WHITE BLOOD COUNT (AUTO) 11.3 K/uL (4.3-11.0)
[2020-04-10 04:52] LABS: HEMOGLOBIN 6.9 g/dL (13.5-17.5)
[2020-04-10 04:56] LABS: BILIRUBIN,TOTAL 0.3 mg/dL (0.2-1.0); CALCIUM, SERUM 8.3 mg/dL (8.5-10.1); CREATININE 0.9 mg/dL (0.6-1.3); MAGNESIUM 2.1 mg/dL (1.8-2.4); PHOSPHORUS 2.7 mg/dL (2.5-4.9); TOTAL PROTEIN, SERUM 3.4 g/dL (6.4-8.2)
[2020-04-10] MEDS: PIPERACILLIN /TAZOBACTAM 3.375 G in IV D5W 100 ML IV SCH ×3 (05:02→20:56)
[2020-04-10 05:13] LABS: LYMPHOCYTES % (MANUAL) 3 % (16-48)
[2020-04-10 05:14] LABS: MONOCYTES % (MANUAL) 4 % (0-11.0); NEUTROPHILS % (MANUAL) 93 (42-76)
[2020-04-10 05:20] LABS: ALBUMIN 1.4 g/dL (3.4-5.0); POTASSIUM 2.4 mmol/L (3.5-5.1)
--- NOTE | 2020-04-10 05:30 | NUR ---
RN NOTES FRANDY FROM LAB CALLED AND REPORTED HGB 6.9 AND HCT 21AND JAIRO FROM LAB ALSO CALLED REPORTED CRITICAL VALUES OF POTASSIUM 2.9 AND ALBUMIN 1.4 WITH NEW ORDER FROM MICHAEL MCCOLLUM TO GIVE 1 UNIT PRBC AND KCL 60 MEQ NOTED AND CARRIED OUT ORDERS.
[2020-04-10] MEDS: POTASSIUM CL. PREMIX PERIPHER. 50 ML IV SCH ×6 (06:04→12:49)
--- NOTE | 2020-04-10 07:24 | NUR ---
RN NOTES PATIENT REMAINED INTUBATED. VENT SETTING TOLERATED WELL. AFEBRILE. VSS, CALEB OFF. CONTINUE ON DIPRIVAN TITRATED ORDERED. NO SIGNIFICANT CHANGE OF CONDITION THROUGHOUT THE SHIFT. IV SITE ON BELEN INTACT AND PATENT. KCL ONGOING. KEPT PT CLEAN AND DRY. TURNED AND REPOSITIONED Q2H AND PRN. ENDORSED CONTINUITY OF CARE TO AM NURSE
--- NOTE | 2020-04-10 08:00 | NUR ---
PATTERN CHANGER RECEIVED PT SEDATED ON PROPOFOL DRIP. CALEB DRIP INFUSING, WILL TITRATE. SUCTIONED, REPOSITIONED.
--- NOTE | 2020-04-10 08:18 | NUR ---
PT RECEIVED ON CURRENT SETTINGS WITH NO SIGNS OF RESPIRATORY DISTRESS. AIRWAY IS PATENT AND SECURE. NEBULIZER TX GIVEN WITH NO ADVERSE REACTION NOTED. VENT IS PLUGGED INTO RED OUTLET WITH ALARMS ON AND AUDIBLE. SUCTION PT NEEDED. WILL CONTINUE TO MONITOR. Addendum: 04/10/20 at 0820 by JUAN VARMA RT Amended: Links added.
[2020-04-10] MEDS: ENSURE ENLIVE 237 ML LIQUID (VANILLA) PO SCH ×2 (09:00→16:32)
[2020-04-10] MEDS ORDERED: SULFAMETH/TRIMETH 800/160 MG 1 UDTAB TABLET PO SCH (09:00)
[2020-04-10 09:17] LABS: ABG BASE EXCESS -0.5 mmol/L; ABG OXYGEN SATURATION 97.8 % (92.0-98.5); ABG PCO2 32.9 mmHg (35.0-45.0); ABG PH 7.463 (7.350-7.450); ABG PO2 116.9 mmHg (75.0-100.0); AaDO2 58.3 mmHg; COHb 0.9 % (0.5-1.5); MetHb 0.1 % (0.0-1.5); O2Hb 96.8 % (94.0-97.0); SITE, ABG Left Radial; VENT MODE, BG AC 12 450 30% +5
[2020-04-10] MEDS: PANTOPRAZOLE 40 MG VIAL IV SCH ×2 (09:19→20:56)
[2020-04-10] MEDS: DAPSONE 25 MG TABLET PO SCH (09:20)
[2020-04-10] MEDS: ACYCLOVIR 200 MG CAPSULE PO SCH ×2 (09:20→16:32)
--- NOTE | 2020-04-10 10:00 | NUR ---
CLAY DRY PRESS MIXER OPERATOR PT SUCITONED SMALL AMOUNT THICK FERREIRA SECRETIONS. SPO2 99 ON CURRENT VENT SETTINGS.
[2020-04-10 10:07] LABS: *CRYPTOCOCCUS AG, CSF Negative (Negative)
--- NOTE | 2020-04-10 12:00 | NUR ---
APPLIED PSYCHOLOGY PROFESSOR SEDATION VACATION COMPLETED. PT BECOMES TACHYPNEIC DECREASED DOSE OF PROPOFOL.
[2020-04-10] MEDS: INSULIN REGULAR, HUMAN 100 UNIT/ML 3 ML VIAL SQ PRN (13:02)
--- NOTE | 2020-04-10 14:00 | NUR ---
NO NEW C/O. SATURATION REMAINS HIGH 90'S ON CURRENT SETTINGS.
[2020-04-10 14:40] LABS: CREATININE 0.9 mg/dL (0.6-1.3); POTASSIUM 3.5 mmol/L (3.5-5.1)
[2020-04-10] MEDS: PROPOFOL 100 ML IV PRN (15:09)
--- NOTE | 2020-04-10 16:00 | NUR ---
VOCATIONAL NURSE LVN PT HAD LG AMOUNT STOOL FROM COLOSTOMY. CLEANED. SUCTIONED.
--- NOTE | 2020-04-10 19:54 | NUR ---
GRAVEL ROOFER. INITIAL ASSESSMENT. RECEIVED THE PT REST ON THE BED. ORALLY INTUBATED. SEDATED WITH DIPRIVAN. ETT7.5,LIP 24,AC 12.TV 450,FIO2 30%SAT 98%. NO ACUTE DISTRESS NOTED. PHYS THERAPIST SHOWING NSR. IV RT UPPER ARM PICC LINE DIPRIVAN 15MCG/KG/MIN,IVF D5NS 100ML/H.OGT INTACT. HOB ELEVATED. COLOSTOMY INTACT. FC PATENT. URINE DRAINING. HOB ELEVATED. WILL CONTINUE TO MONITOR VITALS.
[2020-04-10] MEDS: FLUCONAZOLE (100 MG) 100 MG TABLET PO SCH (21:04)
--- NOTE | 2020-04-10 22:02 | NUR ---
RECEIVED PT INTUBATED 8.0 ETT SECURED AT 24CM AT THE LIP. NO RESP DISTRESS. PT TOLERATING VENT SETTINGS. SX'D FOR SML AMT OF THICK WHITE SECRETIONS. VENT ALARMS SET AND AUDIBLE. CONTINUE [facility] VENT SUPPORT. Addendum: 04/10/20 at 2204 by BETO BUTLER RT Amended: Links added.
[2020-04-11] VITALS (42 sets, daily range): BP systolic 92–134; BP diastolic 70–97
[2020-04-11] MEDS: HYDROCORTISONE SOD SUCCINATE 100 MG/2 ML VIAL IV SCH ×3 (00:49→17:38)
[2020-04-11] MEDS: BLOOD SUGAR DIAGNOSTIC 1 EACH STRIP IN SCH ×4 (00:49→17:38)
[2020-04-11] MEDS: PROPOFOL 100 ML IV PRN ×3 (02:43→21:25)
--- NOTE | 2020-04-11 03:24 | NUR ---
ELECTROPHYSIOLOGIST. REMAINING SAME VENT SETTING TOLERATED WELL. SAT 99%. NO ACUTE DISTRESS NOTED. VIOLENT CRIMES DETECTIVE SHOWING S TACH. RATE IS AT HIS TIME 102. HOB ELEVATED. FC PATENT. COLOSTOMY BAG INTACT. IV DIPRIVAN 20MCG/KG/MIN,IVF D5NS 100ML/HHOB ELEVATED. TOGT INTERMITTENT SUCTION, TURN AND REPOSITION Q2H. WILL CONTINUE TO MONITOR VITALS.
[2020-04-11 04:32] LABS: BASOPHILS # (AUTO) 0.1 /CMM (0.0-0.2); BASOPHILS % (AUTO) 0.5 % (0.0-2.0); HEMATOCRIT 33 % (39-51); LYMPHOCYTES # (AUTO) 0.1 /CMM (0.8-4.8); LYMPHOCYTES % (AUTO) 0.8 % (20.0-44.0); MEAN CORPUSCULAR HGB CONC 34 g/dl (31.0-36.0); MEAN CORPUSCULAR VOLUME 86 fL (80-96); MONOCYTES # (AUTO) 0.6 /CMM (0.1-1.30); MONOCYTES % (AUTO) 4.9 % (2.0-12.0); NEUTROPHILS # (AUTO) 11.4 /CMM (1.8-8.9); NEUTROPHILS % (AUTO) 93.8 % (43.0-81.0); PLATELET COUNT (AUTO) 124 /CMM (150-450); RED BLOOD CELL COUNT(AUTO) 3.78 MIL/uL (4.5-6.0); WHITE BLOOD COUNT (AUTO) 12.2 K/uL (4.3-11.0)
[2020-04-11 04:52] LABS: ALBUMIN 1.5 g/dL (3.4-5.0); BILIRUBIN,TOTAL 0.5 mg/dL (0.2-1.0); CALCIUM, SERUM 8.4 mg/dL (8.5-10.1); CREATININE 1.1 mg/dL (0.6-1.3); MAGNESIUM 1.8 mg/dL (1.8-2.4); PHOSPHORUS 3.1 mg/dL (2.5-4.9); POTASSIUM 3.1 mmol/L (3.5-5.1)
[2020-04-11] MEDS: PIPERACILLIN /TAZOBACTAM 3.375 G in IV D5W 100 ML IV SCH ×3 (05:30→21:00)
[2020-04-11] MEDS: IV D5/ 0.9% NACL 1,000 ML IV PRN (06:29)
[2020-04-11] MEDS: INSULIN REGULAR, HUMAN 100 UNIT/ML 3 ML VIAL SQ PRN (06:33)
--- NOTE | 2020-04-11 07:15 | NUR ---
COOK FRY NOTES RECEIVED PATIENT SEDATED , RESPONSIVE TO PAIN STIMULI , NOT IN ACUTE DISTRESS , RESPIRATIONS EVEN AND UNLABORED WITH SPO2 OF 100% VIA MECHANICAL VENT SETTINGS ORDERED , ETT 7.[address] IN [address] , SR 85 ON BEDSIDE MONITOR . R NARE NGT CLAMPED NOTED WITH SMALL AMOUNT OF PINKISH OUTPUT , FC DRAINING VIA GRAVITY WITH CLOUDY YELLOW URINE , COLOSTOMY DRAINING VIA GRAVITY , BELEN PICC LINE WITH DIPRIVAN @ 25MCG/KG/MIN , D5NS @ 100ML/HR INFUSING WELL , ALL NEEDS ATTENDED , WILL CONTINUE TO MONITOR
[2020-04-11] MEDS: ACETYLCYSTEINE 10% SOLN 400 MG/4 ML VIAL NEB SCH ×3 (07:56→23:03)
--- NOTE | 2020-04-11 08:20 | NUR ---
PRECISION ASSEMBLER NOTES SEDATION VACATION , DIPRIVAN HELD , PT ON BILATERAL SOFT WRIST RESTRAINTS , CALM AND COOPERATIVE , ABLE TO FOLLOW COMMANDS , NOT IN ACUTE DISTRESS , SEEN AND EVALUATED BY DR HAGEN , DISCUSSED LABS , PT ABLE TO FOLLOW COMMANDS OF SEDATION , PENDING SIMV , BM X2 PER NIGHT NURSE , AFEBRILE , OFF CALEB , NGT CLAMPED , LOW INTERMITTENT SUCTION HELD , NOTED WITH 5ML PINKISH CLEAR OUTPUT , ABDOMEN NON DISTENDED WITH GOOD URINE OUTPUT , MD AWARE
[2020-04-11] MEDS: PANTOPRAZOLE 40 MG VIAL IV SCH ×2 (08:27→21:00)
[2020-04-11] MEDS: DAPSONE 25 MG TABLET PO SCH (08:27)
[2020-04-11] MEDS: ENSURE ENLIVE 237 ML LIQUID (VANILLA) PO SCH (08:27)
[2020-04-11] MEDS: POTASSIUM CHLORIDE 20 MEQ POWDER PACKET PO SCH ×3 (08:27→09:46)
[2020-04-11] MEDS: ACYCLOVIR 200 MG CAPSULE PO SCH ×2 (08:27→17:36)
--- NOTE | 2020-04-11 10:30 | NUR ---
AROMATHERAPIST NOTES DIPRIVAN RESTARTED , HR 130-140 RR 30'S , BP WNL , UNABLE TO DO SIMV MODE , DR HAGEN AND RT SALAZAR AWARE .
--- NOTE | 2020-04-11 10:55 | NUR ---
EXCAVATING MACHINE OPERATOR NOTES CALLED PHARMACIST MATTIE NOTIFIED PT POTASSIUM WAS REPLACED WITH 60MEQ KLOR CON UNDER DR AGUIRRE , PHARMACIST AWARE WILL DC POTASSIUM ORDER FOR REPLACEMENT
[2020-04-11] MEDS ORDERED: POTASSIUM CL. PREMIX PERIPHER. 50 ML IV SCH (11:00)
--- NOTE | 2020-04-11 11:14 | NUR ---
STATE TESTED NURSING ASSISTANT NOTES SEEN AND EVALUATED BY JAMISON ROUTE SALES MANAGER , DISCUSSED PT OFF CALEB , BM X2 LAST BM LAST NIGHT RECTAL , COLOSTOMY DRAINING WITH MODERATE AMOUNT OF GRAYISH SOFT STOOL , NGT CLAMPED NOTED WITH 5ML OF CLEAR PINK OUTPUT , AFEBRILE , PER ROUTE SALES MANAGER START NGT FEEDING VIA DIATERAY RECOMMENDATION CALLED TONY WHITE , DISCUSSED THAT PER ROUTE SALES MANAGER JAMISON SHE WANTS TO START PT ON NGT FEEDING , GLUCERNA HELD X5 DAYS , , PT ON DIPRIVAN PER DIETARY START PT ON GLUCERNA @20ML/HR X24 HOURS , ORDER CARRIED OUT
[2020-04-11] MEDS: GLUCERNA 1.2 1,000 ML BOTTLE NG PRN (12:05)
--- NOTE | 2020-04-11 17:37 | NUR ---
RT PATIENT REMAINS ORALLY INTUBATED ON [facility] VENT. WEANING ATTEMPTS FAILED DUE TO INCREASED HR AND RR. VENT ALARMS CHECKED + AUDIBLE. PATIENT REMAINS SEDATED AND COMFORTABLE ON VENT. AIRWAY CHECKED AND SECURE. SUCTIONED AND PATENT. AMBU BAG AT [facility]. CONT CURRENT PLAN OF RESP CARE. Addendum: 04/11/20 at 1744 by MARTIN MACK RT Amended: Links added.
--- NOTE | 2020-04-11 19:20 | NUR ---
SIGNAL OPERATOR TECHNICAL NOTES DR RADAH WU WITH VENOUS DOPPLER OF BILATERAL UPPER EXT DUE TO SWELLING / EDEMA , ORDER CARRIED OUT
--- NOTE | 2020-04-11 19:57 | NUR ---
PT RECEIVED ON CURRENT SETTINGS WITH NO SIGNS OF RESPIRATORY DISTRESS. AIRWAY IS PATENT AND SECURE. VENT IS PLUGGED INTO RED OUTLET WITH ALARMS ON AND AUDIBLE. SUCTION PT NEEDED. WILL CONTINUE TO MONITOR T/O SHIFT. Addendum: 04/11/20 at 8 by BRIELLE PRITCHETT RT Amended: Links added.
[2020-04-11] MEDS: FLUCONAZOLE (100 MG) 100 MG TABLET PO SCH (21:00)
[2020-04-12] VITALS (45 sets, daily range): BP systolic 100–137; BP diastolic 57–97
[2020-04-12] MEDS: BLOOD SUGAR DIAGNOSTIC 1 EACH STRIP IN SCH ×4 (00:39→17:13)
[2020-04-12] MEDS: HYDROCORTISONE SOD SUCCINATE 100 MG/2 ML VIAL IV SCH ×3 (02:01→16:09)
[2020-04-12] MEDS: PIPERACILLIN /TAZOBACTAM 3.375 G in IV D5W 100 ML IV SCH ×2 (04:01→12:06)
[2020-04-12 04:14] LABS: BASOPHILS % (AUTO) 0.2 % (0.0-2.0); HEMATOCRIT 34 % (39-51); LYMPHOCYTES # (AUTO) 0.1 /CMM (0.8-4.8); MEAN CORPUSCULAR HGB CONC 33 g/dl (31.0-36.0); MEAN CORPUSCULAR VOLUME 87 fL (80-96); MONOCYTES # (AUTO) 0.5 /CMM (0.1-1.30); MONOCYTES % (AUTO) 4.2 % (2.0-12.0); NEUTROPHILS # (AUTO) 12.1 /CMM (1.8-8.9); NEUTROPHILS % (AUTO) 94.6 % (43.0-81.0); PLATELET COUNT (AUTO) 118 /CMM (150-450); RED BLOOD CELL COUNT(AUTO) 3.85 MIL/uL (4.5-6.0); WHITE BLOOD COUNT (AUTO) 12.8 K/uL (4.3-11.0)
[2020-04-12 04:33] LABS: ALBUMIN 1.5 g/dL (3.4-5.0); BILIRUBIN,TOTAL 0.4 mg/dL (0.2-1.0); CALCIUM, SERUM 8.8 mg/dL (8.5-10.1); CREATININE 1.4 mg/dL (0.6-1.3); PHOSPHORUS 3.6 mg/dL (2.5-4.9); POTASSIUM 3.7 mmol/L (3.5-5.1); TOTAL PROTEIN, SERUM 4.1 g/dL (6.4-8.2)
[2020-04-12] MEDS: INSULIN REGULAR, HUMAN 100 UNIT/ML 3 ML VIAL SQ PRN ×3 (05:47→17:15)
--- NOTE | 2020-04-12 07:10 | NUR ---
GRAVITY METER OBSERVER NOTES RECEIVED PATIENT SEDATED , RESPONSIVE TO PAIN STIMULI , NOT IN ACUTE DISTRESS , RESPIRATIONS EVEN AND UNLABORED WITH SPO2 OF 100% VIA MECHANICAL VENT SETTINGS ORDERED , ETT 7.[address] IN [address] , ST 102 ON BEDSIDE MONITOR . R NARE NGT WITH GLYTROL@ 20ML/HR TOLERATING WELL WITH NO RESIDUALS NOTED , FC DRAINING VIA GRAVITY WITH CLOUDY YELLOW URINE , COLOSTOMY DRAINING VIA GRAVITY , BELEN PICC LINE WITH DIPRIVAN @ 25MCG/KG/MIN , NS @ TKO INFUSING WELL , ALL NEEDS ATTENDED , WILL CONTINUE TO MONITOR
[2020-04-12] MEDS: ACETYLCYSTEINE 10% SOLN 400 MG/4 ML VIAL NEB SCH ×3 (07:35→23:44)
--- NOTE | 2020-04-12 08:50 | NUR ---
SPINNING MULE TENDER NOTES DIPRIVAN HELD FOR SEDATION VACATION , PT OPENS EYES FOLLOW SIMPLE COMMANDS , DROWSY , WILL CONTINUE TO MONITOR
[2020-04-12] MEDS: DAPSONE 25 MG TABLET PO SCH (09:02)
[2020-04-12] MEDS: ACYCLOVIR 200 MG CAPSULE PO SCH ×2 (09:03→16:09)
[2020-04-12] MEDS: PANTOPRAZOLE 40 MG VIAL IV SCH ×2 (09:04→20:30)
--- NOTE | 2020-04-12 10:17 | NUR ---
FIREWALL ENGINEER NOTES NOTIFIED DR HAGEN REGARDING PT LOW URINE OUTPUT OF 100ML FOR 12 HOURS LAST NIGHT , AND URINE OUTPUT TODAY OF 10ML /HR , HR OF 120'S OFF SEDATION , BUN 36 CREATININE 1.4 , ON GLYTROL @20ML/HR , PER MD START PT ON D5NS @100ML/HR , ORDER CARRIED OUT
[2020-04-12] MEDS: IV D5/ 0.9% NACL 1,000 ML IV PRN ×2 (11:01→18:06)
[2020-04-12] MEDS: LORAZEPAM 0.5 MG TABLET PO PRN (11:21)
--- NOTE | 2020-04-12 11:30 | NUR ---
TANKER TRUCK DRIVER NOTES DIPRIVAN RESTARTED , HR OF 150'S ST , PT AWAKE , DROWSY , OPENS EYES ABLE TO FOLLOW COMMANDS , DR GARCIA AT BEDSIDE , DISCUSSED THAT PT IS ST 150'S OFF SEDATION , DISCUSSED VENT SETTINGS , LABS , NO ACTIVE BLEEDING NOTED , AFEBRILE , TOLERATING NGT FEEDING OF GLYTROL @20ML/HR MAX RATE PER DIETITIAN , LOW URINBE OUTPUT 10ML/HR NOTED DR HAGEN STARTED PT ON D5NS @100ML/HR , MD AWARE . FIO2 INCREASED TO 40% NOTED WITH 90% SPO2 SUSTAINED , RR OF 30'S JAMISON POWER CRANE OPERATOR AT BEDSIDE , DISCUSSED PT NO BM RECTALLY , COLOSTOMY NOTED WITH GRAYISH DARK LIQUID OUTPUT , TOLERATING NGT FEEDING OF GLYTROL @20ML/HR WITH NO RESIDUALS , OFF CALEB ,DICUSSEC CHEST XRAY RESULT NOTED WITH RESIDUAL AMOUNT OF CONTRAST AFEBRILE , POWER CRANE OPERATOR AWARE.
[2020-04-12] MEDS: PROPOFOL 100 ML IV PRN ×3 (13:09→20:30)
[2020-04-12] MEDS: GLUCERNA 1.2 1,000 ML BOTTLE NG PRN (14:58)
[2020-04-12] MEDS ORDERED: CEFEPIME 1 GM in IV D5W 50 ML IV SCH (19:00)
--- NOTE | 2020-04-12 19:49 | NUR ---
EQUAL OPPORTUNITY OFFICER RCD PT W/DX RESP FAILURE. NSR ON MONITOR. INTUBATED 7.5 @ 24 W/VENT SETTINGS AC 12 450 40% +5. PT HAS THICK WHITE SECRETIONS. SEDATED ON DIPRIVAN @ 40 MCG/KG/MIN PT NOTED TO WAKE UP INTERMITTENTLY W/BLSW RESTRAINTS IN PLACE. RIGHT NARE NG TUBE W/GLUCERNA @ 20 ML/HR. NO RESIDUAL NOTED AT THIS TIME. SACRAL DTI W/MEPILEX IN PLACE. PT REPOSITIONED AT THIS TIME. CONTINUE TO MONITOR.
[2020-04-12] MEDS: FLUCONAZOLE (100 MG) 100 MG TABLET PO SCH (20:30)
[2020-04-12] MEDS: CEFEPIME 2 GM in IV D5W 100 ML IV SCH (20:30)
[2020-04-13] VITALS (38 sets, daily range): BP systolic 95–161; BP diastolic 42–100
[2020-04-13] MEDS: BLOOD SUGAR DIAGNOSTIC 1 EACH STRIP IN SCH ×4 (00:37→18:15)
[2020-04-13] MEDS: INSULIN REGULAR, HUMAN 100 UNIT/ML 3 ML VIAL SQ PRN ×3 (00:39→23:43)
--- NOTE | 2020-04-13 04:00 | NUR ---
MARKET INTELLIGENCE CONSULTANT UNABLE TO OBTAIN AXILLARY/ORAL TEMP; RECTAL PROBE APPLIED W/TEMP 93. FELICIANO HUGGER APPLIED.
[2020-04-13] MEDS: IV D5/ 0.9% NACL 1,000 ML IV PRN ×2 (04:50→14:31)
[2020-04-13 04:55] LABS: BASOPHILS % (AUTO) 0.4 % (0.0-2.0); HEMATOCRIT 27 % (39-51); HEMOGLOBIN 8.8 g/dL (13.5-17.5); LYMPHOCYTES # (AUTO) 0.1 /CMM (0.8-4.8); MEAN CORPUSCULAR HGB CONC 33 g/dl (31.0-36.0); MEAN CORPUSCULAR VOLUME 88 fL (80-96); MONOCYTES # (AUTO) 0.4 /CMM (0.1-1.30); MONOCYTES % (AUTO) 4.2 % (2.0-12.0); NEUTROPHILS # (AUTO) 9.4 /CMM (1.8-8.9); NEUTROPHILS % (AUTO) 94.4 % (43.0-81.0); PLATELET COUNT (AUTO) 82 /CMM (150-450); RED BLOOD CELL COUNT(AUTO) 3.02 MIL/uL (4.5-6.0)
[2020-04-13 05:04] LABS: CALCIUM, SERUM 7.8 mg/dL (8.5-10.1); CREATININE 1.4 mg/dL (0.6-1.3); MAGNESIUM 1.8 mg/dL (1.8-2.4); PHOSPHORUS 3.8 mg/dL (2.5-4.9); POTASSIUM 3.5 mmol/L (3.5-5.1)
[2020-04-13 05:33] LABS: BAND % (MANUAL) 4 % (0.0-5.0); LYMPHOCYTES % (MANUAL) 0 % (16-48); MONOCYTES % (MANUAL) 4 % (0-11.0); NEUTROPHILS % (MANUAL) 92 (42-76)
[2020-04-13] MEDS: PROPOFOL 100 ML IV PRN ×2 (07:38→20:00)
[2020-04-13] MEDS: ACETYLCYSTEINE 10% SOLN 400 MG/4 ML VIAL NEB SCH ×3 (07:53→23:14)
--- NOTE | 2020-04-13 08:00 | NUR ---
[facility] from [facility] shift [facility], sedated on Diprivan at 40mcg, SR, intubated, sat well, lungs congested, pitting/non pitting edema all extremities, NG to feeding tolerates well, f/c low output MD aware per night RN, L colostomy intact, liza hugger on, v/s stable, no pain, pt turned and repositioned.
[2020-04-13] MEDS: PANTOPRAZOLE 40 MG VIAL IV SCH ×2 (08:07→20:07)
[2020-04-13] MEDS: CEFEPIME 2 GM in IV D5W 100 ML IV SCH (08:07)
[2020-04-13] MEDS: ACYCLOVIR 200 MG CAPSULE PO SCH ×2 (08:08→17:52)
[2020-04-13] MEDS: DAPSONE 25 MG TABLET PO SCH (08:08)
[2020-04-13] MEDS: HYDROCORTISONE SOD SUCCINATE 100 MG/2 ML VIAL IV SCH ×2 (08:08→17:52)
--- NOTE | 2020-04-13 08:20 | NUR ---
pt is on SIMV mode, off of Diprivan.
[2020-04-13 11:11] LABS: ABG BASE EXCESS -7.1 mmol/L; ABG OXYGEN SATURATION 98.6 % (92.0-98.5); ABG PCO2 26.8 mmHg (35.0-45.0); ABG PH 7.407 (7.350-7.450); ABG PO2 166.4 mmHg (75.0-100.0); COHb 0.4 % (0.5-1.5); MetHb 2.6 % (0.0-1.5); O2Hb 95.6 % (94.0-97.0); SITE, ABG Left Radial
--- NOTE | 2020-04-13 12:44 | NUR ---
pt is tolerating SIMV, v/s stable, but very lethargic.
--- NOTE | 2020-04-13 16:16 | NUR ---
pt is resting in the bed, SR, ST, on SIMV, still lethargic, tolerates feeding, f/c low output, v/s stable, no pain, pt cleaned, changed and repositioned.
--- NOTE | 2020-04-13 19:10 | NUR ---
CADMIUM BURNER NOTES RECEIVED PATIENT ON BED SLEEPING , RESPONSIVE TO PAIN STIMULI , NOT IN ACUTE DISTRESS , RESPIRATIONS EVEN AND UNLABORED WITH SPO2 OF 100% VIA MECHANICAL VENT SETTINGS ORDERED , ETT 7.[address] IN [address] , ST 120'S ON BEDSIDE MONITOR . R NARE NGT WITH GLUCERNA@ 20ML/HR TOLERATING WELL WITH NO RESIDUALS NOTED , FC DRAINING VIA GRAVITY WITH CLOUDY YELLOW URINE , COLOSTOMY DRAINING VIA GRAVITY , BELEN PICC LINE WITH D5 NS @ 100ML/HR INFUSING WELL , ON DROPLET PRECAUTION FOR PSEUDOMONAS ON URINE AND SPUTUM ,SAFETY MEASURE MAINTAINED BED ON LOWEST POSITION AND LOCKED WILL CONTINUE TO MONITOR
--- NOTE | 2020-04-13 19:23 | NUR ---
RT PATIENT WAS NOTED TO BE TACHYPNEIC PER BRISSA KEYS , RESPONDED TO THE CALL AND PLACED PATIENT BACK ON AC12, VT 450,40% FIO2, PEEP +5 . PATIENT STAB;E AT THIS TIME AND TOLERATED CURRENT VENT SETTINGS . WILL CONTINUE TO MONITOR. Addendum: 04/13/20 at 1927 by CORI CROWLEY RT Amended: Links added.
--- NOTE | 2020-04-13 20:00 | NUR ---
MOBILE EQUIPMENT MECHANIC NOTES DIPRIVAN STARTED RATE PER PROTOCOL PT IS AGITATED HR 130'S PT AC IS ON 30'S WILL TITRATE NEEDED WILL CONT TO MONITOR THE PT
[2020-04-13] MEDS: FLUCONAZOLE (100 MG) 100 MG TABLET PO SCH (20:07)
[2020-04-13] MEDS: LEVOFLOXACIN (500MG) 500 MG TABLET PO SCH (20:07)
[2020-04-13] MEDS: [UNRECOGNIZED DRUG - OTHER] PO SCH ×2 (20:17→23:08)
--- NOTE | 2020-04-13 20:18 | NUR ---
HOSPICE CLINICAL MANAGER NOTES BICTEGRAV HOME MEDICATION NOT GIVEN BECAUSE STILL NOT AVAILABLE MAGDALENA, FAMILY WILL BRING FROM HOME Addendum: 04/13/20 at 2309 by JUAN LORENZ RN BICTEGRAV GIVEN SAW 2 TABLET ON PT CASSETTE
[2020-04-14] VITALS (28 sets, daily range): BP systolic 115–146; BP diastolic 72–99
[2020-04-14] MEDS: BLOOD SUGAR DIAGNOSTIC 1 EACH STRIP IN SCH ×5 (00:19→23:55)
[2020-04-14 04:42] LABS: BASOPHILS # (AUTO) 0.1 /CMM (0.0-0.2); BASOPHILS % (AUTO) 0.5 % (0.0-2.0); HEMATOCRIT 27 % (39-51); LYMPHOCYTES # (AUTO) 0.1 /CMM (0.8-4.8); LYMPHOCYTES % (AUTO) 0.9 % (20.0-44.0); MEAN CORPUSCULAR HGB CONC 33 g/dl (31.0-36.0); MEAN CORPUSCULAR VOLUME 88 fL (80-96); MONOCYTES # (AUTO) 0.4 /CMM (0.1-1.30); NEUTROPHILS # (AUTO) 13.2 /CMM (1.8-8.9); NEUTROPHILS % (AUTO) 95.6 % (43.0-81.0); RED BLOOD CELL COUNT(AUTO) 3.12 MIL/uL (4.5-6.0); WHITE BLOOD COUNT (AUTO) 13.8 K/uL (4.3-11.0)
[2020-04-14 04:56] LABS: CALCIUM, SERUM 7.5 mg/dL (8.5-10.1); CREATININE 1.2 mg/dL (0.6-1.3); MAGNESIUM 1.7 mg/dL (1.8-2.4); PHOSPHORUS 4.3 mg/dL (2.5-4.9); POTASSIUM 3.4 mmol/L (3.5-5.1)
--- NOTE | 2020-04-14 05:29 | NUR ---
RT PATIENT REMAINED ORALLY INTUBATED ON MECHANICAL VENT . PLACED PATIENT ON AC 12, VT 450, + 5 PEEP ,40% AT 1910 DUE INCREASE RR AND HR OF THE PATIENT .PATIENT STABLE THROUGHOUT THE SHIFT. ALARMS ARE CHECK AND AUDIBLE. VENT PLUGGED INTO RED OUTLET . [place] AT [facility], WILL CONTINUE TO MONITOR. Addendum: 04/14/20 at 0537 by CORI CROWLEY RT Amended: Links added.
[2020-04-14 05:46] LABS: LYMPHOCYTES % (MANUAL) 1 % (16-48); MONOCYTES % (MANUAL) 4 % (0-11.0); NEUTROPHILS % (MANUAL) 95 (42-76)
[2020-04-14] MEDS: INSULIN REGULAR, HUMAN 100 UNIT/ML 3 ML VIAL SQ PRN ×2 (05:48→23:56)
[2020-04-14 05:56] LABS: PLATELET COUNT (AUTO) 107 /CMM (150-450)
--- NOTE | 2020-04-14 06:00 | NUR ---
UROGYNAECOLOGIST NOTES RT PUT BACK PT TO SIMV 4 TV 450 PEEP +5 PSV 15 FIO2 40% DIPRIVAN WAS OFF WILL CONT TO MONITOR THE PT
--- NOTE | 2020-04-14 06:50 | NUR ---
BIOINFORMATICS SCIENTIST CLOSING NOTES PT ON BED ON ETT/VENT SETTING ORDERED NO SIGN AND SYMPTOMS OF RESPIRATORY DISTRESS, NO PAIN NOTED, NO SIGNIFICANT CHANGES NOTED STILL ON DROPLET ISOLATION FOR PSEUDOMONAS AERUGINOSA ON SPUTUM AND URINE, ALL NEEDS ATTENDED WOUND CARE DONE ORDERED, SAFETY MEASURE MAINTAINED, BED ON LOWEST POSITION AND LOCKED CALL LIGHT WITHIN REACH WILL ENDORSE TO AM SHIFT NURSE
[2020-04-14] MEDS: Magnesium 1GM/D5W 100ML PREMIX 100 ML IV SCH ×2 (06:55→08:44)
[2020-04-14] MEDS ORDERED: POTASSIUM CHLORIDE 20 MEQ POWDER PACKET NG SCH (07:00)
--- NOTE | 2020-04-14 07:00 | NUR ---
WHEEL ROLLER - OPENING PATIENT AWAKE AND ORIENTED X 1. OPENS EYES ABLE TO FOLLOW SIMPLE COMMANDS . ON ISOLATION FOR PSEUDOMONAS AERUGIOSA IN SPUTUM AND URINE. AT THIS TIME PATIENT HAS A ETT TUBE WITH 7.5/ 24 , AC 12 TV 450 FI02 40% PEEP 5 AT THIS TIME THE VENT IS CURRENTLY TURNED OFF. DIPRIVAN AT THIS TIME IS TURN OFF . PATIENT ON EXTERNAL MONITOR WITH SINUS TACH 100'S .R NARE NGT IN PLACE. WHITE CATHERA DRAINING . CLEAR YELLOW DRAINAGE. R ARM SKIN TEARS WITH WOUND DRESSING COVERING WOUNDS. SACRAL DTI. DUE WEEPING EDEMA. ON GLUCERNA 1.2 @ 25ML/HR BELEN PICC CLEAN DRY NO SIGNS OF INFILTRATION. D5NS RUNNING @ 40ML/HR BED LOCKED LOWEST POSITION CALL LIGHT WITH IN REACH ALL SAFETY MEASURE IMPLEMENEDTED PER HOSPITAL POLICY. Addendum: 04/14/20 at 1026 by DAVID VILLAREAL RN WHEEL ROLLER - OPENING PATIENT AWAKE AND ORIENTED X 1. OPENS EYES ABLE TO FOLLOW SIMPLE COMMANDS . ON ISOLATION FOR PSEUDOMONAS AERUGIOSA IN SPUTUM AND URINE. AT THIS TIME PATIENT HAS A ETT TUBE WITH 7.5/ 24 , AC 12 TV 450 FI02 40% PEEP 5 AT THIS TIME THE VENT IS CURRENTLY TURNED OFF. DIPRIVAN AT THIS TIME IS TURN OFF . PATIENT ON EXTERNAL MONITOR WITH SINUS TACH 100'S .R NARE NGT IN PLACE. WHITE CATHERA DRAINING . CLEAR YELLOW DRAINAGE. R ARM SKIN TEARS WITH WOUND DRESSING COVERING WOUNDS. SACRAL DTI. DUE WEEPING EDEMA. ON GLUCERNA 1.2 @ 25ML/HR. COLOSTOMY PRESENT MINIMAL DRAINAGE. BELEN PICC CLEAN DRY NO SIGNS OF INFILTRATION. D5NS RUNNING @ 40ML/HR BED LOCKED LOWEST POSITION CALL LIGHT WITH IN REACH ALL SAFETY MEASURE IMPLEMENEDTED PER HOSPITAL POLICY.
[2020-04-14] MEDS: ACETYLCYSTEINE 10% SOLN 400 MG/4 ML VIAL NEB SCH ×3 (07:43→23:26)
[2020-04-14 08:16] LABS: ABG BASE EXCESS -7.4 mmol/L; ABG OXYGEN SATURATION 98.6 % (92.0-98.5); ABG PCO2 28.1 mmHg (35.0-45.0); ABG PH 7.388 (7.350-7.450); ABG PO2 141.7 mmHg (75.0-100.0); AaDO2 111.2 mmHg; COHb 0.7 % (0.5-1.5); MetHb 0.6 % (0.0-1.5); O2Hb 97.3 % (94.0-97.0); SITE, ABG Left Radial; VENT MODE, BG SIMV 4 450 +5 40
[2020-04-14] MEDS: ACYCLOVIR 200 MG CAPSULE PO SCH ×2 (08:44→17:21)
[2020-04-14] MEDS: HYDROCORTISONE SOD SUCCINATE 100 MG/2 ML VIAL IV SCH ×2 (08:44→17:21)
[2020-04-14] MEDS: [UNRECOGNIZED DRUG - OTHER] PO SCH (08:44)
[2020-04-14] MEDS: DAPSONE 25 MG TABLET PO SCH (08:44)
[2020-04-14] MEDS: PANTOPRAZOLE 40 MG/PACK PACK NG SCH (08:44)
--- NOTE | 2020-04-14 10:00 | NUR ---
[facility] RAFT[facility] GUIDE - DR GARCIA VISIT / ORDERS PER DR. GARCIA ORDERS FLUSH NGT TUBE Q6 HRS WITH 200 ML. FACE TO FACE ORDERS
--- NOTE | 2020-04-14 10:29 | NUR ---
CARDIOLOGY ASSOCIATE SIMV PATIENT AT THIS TIME IS TOLERATING SIMV. PATIENT VITALS STABLE. AT THIS TIME. PATIENT IS RESTING COMFORTABLY IN BED. NO ACUTE RESPIRATORY DISTRESS AT THIS TIME. PATIENT REMAINS CALM AND FOLLOWS COMMANDS.
[2020-04-14] MEDS: IV D5/ 0.9% NACL 1,000 ML IV PRN ×2 (13:31)
--- NOTE | 2020-04-14 18:04 | NUR ---
ELECTRICIAN SECOND - CLOSING NOTES PATIENT AWAKE AND ABLE TO FOLLOW COMMANDS, OPENS EYES AND MOUTHS WORDS. PATIENT STILL CONFUSED. PATIENT STILL HAS RESTRAINTS PLACED. NO SIGNS OF SKIN BREAK DOWN. PULSE PRESENT AND CAP REFILL <3 SEC. NO CHANGES IN PATIENT CONDITION AT THIS TIME. PATIENT REMAINS STABLE. NO ACUTE RESPIRATORY DISTRESS. VITALS STABLE, NO PAIN. WOUND CARE COMPLETED, PATIENT TURN AND REPOSITION Q2H. BED LOCKED LOWEST POSITION 2X SIDE RAILS CALL LIGHT WITH IN REACH ALL SAFETY MEASURE IMPLEMENTED PER HOSPITAL POLICY.
--- NOTE | 2020-04-14 19:40 | NUR ---
RN OPENING NOTE PATIENT AWAKE IN SEMI-FOWLERS POSITION, PT A/O X 1, TOLERATING CURRENT VENT SETTINGS. NO S/S OF RESPIRATORY DISTRESS, RECEIVED PT WITH BILATERAL SOFT WRIST RESTRAINTS IN PLACE. NO SIGNS OF SKIN BREAK DOWN. PULSE PRESENT AND CAP REFILL <3 SEC, GLUCERNA 1.2 RUNNING AT 30 ML/HR, D5NS INFUSING AT 40 ML/HR. BELEN PICC PATENT AND INTACT FLUSHING WELL. WHITE CATH DRAINING YELLOW URINE. BED LOCKED IN LOWEST POSITION SIDE RAILS UP X2, CALL LIGHT WITH IN REACH, SAFETY MEASURE IN PLACE WILL CONTINUE TO MONITOR PT.
[2020-04-14] MEDS: LEVOFLOXACIN (500MG) 500 MG TABLET PO SCH (20:02)
[2020-04-14] MEDS: FLUCONAZOLE (100 MG) 100 MG TABLET PO SCH (20:02)
--- NOTE | 2020-04-14 21:15 | NUR ---
RN NOTE SPOKE TO SON BRANDT, WILL BRING IN MEDS ON THURSDAY. AWARE OF LOCATION AND TO CHECK IN WITH SECURITY. NO FURTHER QUESTIONS ASKED.WILL ENDORSE TO AM RN.
--- NOTE | 2020-04-14 21:39 | NUR ---
RECEIVED PT ON SIMV MODE. PT IS AWAKE AND NO RESP DISTRESS NOTED. PT TOLERATING SETTINGS. SX'D FOR SML AMT OF THIN WHITE SECRETIONS. VENT ALARMS SET AND AUDIBLE. 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 CONTINUE [facility] SUPPORT. Addendum: 04/14/20 at 2140 by BETO BUTLER RT Amended: Links added.
[2020-04-14] MEDS: IPRATROPIUM NEB FS 0.5 MG/2.5 ML AMPUL.NEB NEB PRN (23:26)
[2020-04-15] VITALS (23 sets, daily range): BP systolic 123–145; BP diastolic 77–99
[2020-04-15] MEDS: LORAZEPAM 0.5 MG TABLET PO PRN (03:17)
[2020-04-15 04:58] LABS: BASOPHILS # (AUTO) 0.1 /CMM (0.0-0.2); BASOPHILS % (AUTO) 0.5 % (0.0-2.0); EOSINOPHILS % (AUTO) 0.1 % (0.0-6.0); HEMATOCRIT 26 % (39-51); HEMOGLOBIN 8.4 g/dL (13.5-17.5); LYMPHOCYTES # (AUTO) 0.1 /CMM (0.8-4.8); LYMPHOCYTES % (AUTO) 0.7 % (20.0-44.0); MEAN CORPUSCULAR HGB CONC 33 g/dl (31.0-36.0); MEAN CORPUSCULAR VOLUME 88 fL (80-96); MONOCYTES # (AUTO) 0.3 /CMM (0.1-1.30); MONOCYTES % (AUTO) 2.4 % (2.0-12.0); NEUTROPHILS # (AUTO) 12.9 /CMM (1.8-8.9); NEUTROPHILS % (AUTO) 96.3 % (43.0-81.0); PLATELET COUNT (AUTO) 58 /CMM (150-450); RED BLOOD CELL COUNT(AUTO) 2.93 MIL/uL (4.5-6.0); WHITE BLOOD COUNT (AUTO) 13.4 K/uL (4.3-11.0)
[2020-04-15 05:18] LABS: BILIRUBIN,TOTAL 0.3 mg/dL (0.2-1.0); CALCIUM, SERUM 7.8 mg/dL (8.5-10.1); CREATININE 1.2 mg/dL (0.6-1.3); MAGNESIUM 2.1 mg/dL (1.8-2.4); PHOSPHORUS 3.7 mg/dL (2.5-4.9); TOTAL PROTEIN, SERUM 4.1 g/dL (6.4-8.2)
[2020-04-15 05:27] LABS: ALBUMIN 1.3 g/dL (3.4-5.0)
[2020-04-15] MEDS: BLOOD SUGAR DIAGNOSTIC 1 EACH STRIP IN SCH ×3 (05:49→17:53)
[2020-04-15] MEDS: INSULIN REGULAR, HUMAN 100 UNIT/ML 3 ML VIAL SQ PRN (06:36)
--- NOTE | 2020-04-15 06:55 | NUR ---
RN CLOSING NOTE PATIENT ASLEEP IN SEMI-FOWLERS POSITION, CURRENTLY ON SIMV MODE TOLERATING CURRENT VENT SETTINGS. NO RESPIRATORY DISTRESS DURING SHIFT. PT CURRENTLY ST ON MONITOR, ON BILATERAL WRIST RESTRAINTS, NO SIGNS OF SKIN BREAK DOWN, PULSES PRESENT AND CAP REFILL <3 SEC, DRESSING CHANGE COMPLETED TO BOTH ARMS, GLUCERNA 1.2 RUNNING AT 30 ML/HR, D5 NS INFUSING AT 40 ML/HR. BELEN PICC PATENT AND INTACT FLUSHING WELL. WHITE CATH DRAINING YELLOW URINE. BED LOCKED IN LOWEST POSITION SIDE RAILS UP X2, CALL LIGHT WITH IN REACH, ENDORSED TO AM RN FOR YASHIRA, MADEAWRE OF MEDICATION DROP OFF ON THURSDAY AND ALBUMIN RESULTS.
--- NOTE | 2020-04-15 07:00 | NUR ---
CHLORINE OPERATOR - OPENING PATIENT AWAKE AND ORIENTED X 2. OPENS EYES ABLE TO FOLLOW SIMPLE COMMANDS . ON ISOLATION FOR PSEUDOMONAS AERUGIOSA IN SPUTUM AND URINE. AT THIS TIME PATIENT HAS A ETT TUBE WITH 7.5/ 24 , AC 12 TV 450 FI02 40% PEEP 5 AT THIS TIME THE VENT IS CURRENTLY TURNED OFF - SIMV . PATIENT ON EXTERNAL MONITOR WITH SINUS TACH 120'S 'S .R NARE NGT IN PLACE. WHITE CATHETER DRAINING . CLEAR YELLOW DRAINAGE. R/L ARM SKIN TEARS WITH WOUND DRESSING COVERING WOUNDS. SACRAL DTI OFF LOAD WITH MEPILEX . DUE WEEPING EDEMA. ON GLUCERNA 1.2 @ 30ML/HR. PATIENT HAS ABLE 3-5 ML OF RESIDUAL . BELEN PICC CLEAN DRY NO SIGNS OF INFILTRATION. D5NS RUNNING @ 40ML/HR. COLOSTOMY BAG PRESENT WITH MINIMAL DRAINAGE. PM SHIFT NURSE NOTIFIED ME THAT PATIENT MEDICATIONS WILL BE BROUGHT IN ON THURSDAY BY THE SON ( BRANDT) BED LOCKED LOWEST POSITION CALL LIGHT WITH IN REACH ALL SAFETY MEASURE IMPLEMENEDTED PER HOSPITAL POLICY.
[2020-04-15] MEDS: ACETYLCYSTEINE 10% SOLN 400 MG/4 ML VIAL NEB SCH ×3 (08:05→23:30)
[2020-04-15] MEDS ORDERED: IV LR 1000 ML 1,000 ML IV ONE (08:30)
[2020-04-15] MEDS: HYDROCORTISONE SOD SUCCINATE 100 MG/2 ML VIAL IV SCH ×2 (08:31→17:53)
[2020-04-15] MEDS: [UNRECOGNIZED DRUG - OTHER] PO SCH (08:32)
[2020-04-15] MEDS: DAPSONE 25 MG TABLET PO SCH (08:32)
[2020-04-15] MEDS: PANTOPRAZOLE 40 MG/PACK PACK NG SCH (08:32)
[2020-04-15] MEDS: ACYCLOVIR 200 MG CAPSULE PO SCH ×2 (08:32→17:53)
--- NOTE | 2020-04-15 08:51 | NUR ---
SCIENTIFIC ADVISOR - DR WILLARD LAMAR FACE TO FACE ORDER CHANGE LR TO D5LR. PATIENT UNABLE TO TOLERATE FEEDING GREATER THAN 30 ML/HR AT THIS TIME. PATIENT BLOOD SUGAR TRENDING DOWNWARDS . 122/120/125/110/100/86 ( BLOOD SUGAR QH6)
[2020-04-15] MEDS ORDERED: IV D5 LR 1,000 ML IV ONE (09:00)
--- NOTE | 2020-04-15 12:41 | NUR ---
AIRCRAFT PILOT DR GARCIA VISITED PATIENT NO NEW ORDERS AT THIS TIME
[2020-04-15] MEDS: GLUCERNA 1.2 1,000 ML BOTTLE NG PRN (14:38)
--- NOTE | 2020-04-15 18:32 | NUR ---
NON DESTRUCTIVE TESTING TECHNICIAN PATIENT A/O X2 PATIENT OPENS EYES AND FOLLOWS SIMPLE COMMANDS. PATIENT ALSO ANSWERS YES OR NO QUESTION. PATIENT IS COOPERATIVE WITH CARE. NO CHANGE IN PATIENT CONDITION AT THIS TIME. PATIENT REMAINS STABLE. NO ACUTE RESPIRATORY DISTRESS .NO PAIN. BED LOCKED LOWEST POSITION CALL LIGHT WITH IN REACH ALL SAFETY MEASURE IMPLEMENTED PER HOSPITAL POLICY. Addendum: 04/15/20 at 1838 by DAVID VILLAREAL RN NON DESTRUCTIVE TESTING TECHNICIAN PATIENT A/O X2 PATIENT OPENS EYES AND FOLLOWS SIMPLE COMMANDS. PATIENT ALSO ANSWERS YES OR NO QUESTION. PATIENT IS COOPERATIVE WITH CARE. NO CHANGE IN PATIENT CONDITION AT THIS TIME. PATIENT REMAINS STABLE. NO ACUTE RESPIRATORY DISTRESS .NO PAIN. BED LOCKED LOWEST POSITION CALL LIGHT WITH IN REACH ALL SAFETY MEASURE IMPLEMENTED PER HOSPITAL POLICY. PATIENT TURN Q2H. WOUNDS DRESSING CHANGE KEPT DRY AND CLEAN.
--- NOTE | 2020-04-15 19:30 | NUR ---
CASE MANAGEMENT COORDINATOR NOTES RECEIVED PATIENT IN BED AOX1 OPENS EYES FOLLOWS SIMPLE COMMANDS. RESPONSIVE TO VERBAL AND TACTILE STIMULI. BREATHING NORMAL NO SOB NOTED. ON VENT SETTING TOLERATING WELL ORDERED. ST ON MONITOR. BELEN PICC LINE INTACT FLUSHING WELL. CONTINUES ON GTF GLUCERNA 1.2 RUNNING AT 35ML/HR PATIENT TOLERATING WELL. BUE WITH SOFT RESTRAINT, RELEASED AND CHECKED FOR CIRCULATION AND PULSE Q2 HOURS. ON GOING SKIN TREATMENT SEE FLOW SHEET FOR SKIN ASSESSMENT. ALL SAFETY MEASURES IN PLACE, BED IN LOW AND LOCKED POSITION. CALL LIGHT WITHIN REACH. WILL CONT TO MONITOR. Addendum: 04/16/20 at 2014 by ESTEBAN YBARRA RN ERROR IN CHARTING- PATIENT HAS RT NARE NG TUBE. NOT GTF.
[2020-04-15] MEDS: LEVOFLOXACIN (500MG) 500 MG TABLET PO SCH (19:46)
[2020-04-15] MEDS: FLUCONAZOLE (100 MG) 100 MG TABLET PO SCH (20:01)
[2020-04-15] MEDS: IPRATROPIUM NEB FS 0.5 MG/2.5 ML AMPUL.NEB NEB PRN (23:30)
[2020-04-16] VITALS (40 sets, daily range): BP systolic 102–149; BP diastolic 71–94
[2020-04-16] MEDS: BLOOD SUGAR DIAGNOSTIC 1 EACH STRIP IN SCH ×4 (00:11→17:36)
[2020-04-16 04:18] LABS: BASOPHILS % (AUTO) 0.4 % (0.0-2.0); LYMPHOCYTES # (AUTO) 0.1 /CMM (0.8-4.8); LYMPHOCYTES % (AUTO) 0.7 % (20.0-44.0); MEAN CORPUSCULAR HGB CONC 34 g/dl (31.0-36.0); MEAN CORPUSCULAR VOLUME 88 fL (80-96); MONOCYTES # (AUTO) 0.3 /CMM (0.1-1.30); MONOCYTES % (AUTO) 2.8 % (2.0-12.0); NEUTROPHILS # (AUTO) 10.3 /CMM (1.8-8.9); NEUTROPHILS % (AUTO) 96.1 % (43.0-81.0); PLATELET COUNT (AUTO) 61 /CMM (150-450); RED BLOOD CELL COUNT(AUTO) 2.25 MIL/uL (4.5-6.0); WHITE BLOOD COUNT (AUTO) 10.8 K/uL (4.3-11.0)
[2020-04-16 04:42] LABS: CALCIUM, SERUM 7.8 mg/dL (8.5-10.1); CREATININE 1.1 mg/dL (0.6-1.3); MAGNESIUM 2.1 mg/dL (1.8-2.4); PHOSPHORUS 3.5 mg/dL (2.5-4.9); POTASSIUM 3.8 mmol/L (3.5-5.1)
[2020-04-16 04:43] LABS: HEMATOCRIT 20 % (39-51)
[2020-04-16 04:44] LABS: HEMOGLOBIN 6.7 g/dL (13.5-17.5)
[2020-04-16 05:04] LABS: BAND % (MANUAL) 8 % (0.0-5.0); LYMPHOCYTES % (MANUAL) 1 % (16-48); MONOCYTES % (MANUAL) 1 % (0-11.0); NEUTROPHILS % (MANUAL) 90 (42-76)
--- NOTE | 2020-04-16 06:00 | NUR ---
ICU NOTE RECEIVED CALLED FROM LAB PATIENT'S HEMOGLOBIN 6.7,TITI FLIGHT SUPERINTENDENT NOTIFIED. NEW ORDER RECEIVED TO GIVE 1UNIT OF BLOOD. NOTED AND CARRIED OUT.
--- NOTE | 2020-04-16 07:13 | NUR ---
RETAIL SALES ASSOCIATE BILINGUAL NOTES PATIENT RESTED WELL. NO S/S OF ACUTE DISTRESS NOTED. NO S/S OF PAIN NOTED. ON SIMV SETTING TOLERATING WELL ORDERED. ST ON MONITOR. BELEN PICC LINE INTACT FLUSHING WELL. BELEN PICC LINE INTACT FLUSHING WELL. KEPT CLEAN DRY AND COMFORTABLE. SAFETY MEASURES IN PLACE, BED IN LOW AND LOCKED POSITION. CALL LIGHT WITHIN REACH. ENDORSE PATIENT TO AM NURSE FOR YASHIRA.
--- NOTE | 2020-04-16 07:49 | NUR ---
ICU/RN INITIAL NOTES,AM RECEIVED REPORT FROM NIGHT NURSE FOR YASHIRA. PT INTUBATED ETT 7.5 AND 24CM AT THE LIP. ON SIMV SETTINGS ORDERED BY MD, TOLERATING WELL, NO ACUTE DISTRESS NOTED. PT AAOX1. SINUS TACH ON TELE. RIGHT NARE NG TUBE IN PLACE TUBE FEEDING INFUSING ORDERED, WILL INCREASE TO MEET GOAL TOLERATED. COLOSTOMY NOTED/WHITE CATH DRAINING. RIGHT UPPER ARM PICC PATENT AND INTACT, NO S/S OF INFECTION OR INFILTRATION NOTED. ONE UNIT PRBC PENDING FOR H/H OF 6.7/20. BILATERAL SOFT WRIST RESTRAINTS IN PLACE, ASSESSED PER PROTOCOL. ALL NEEDS WILL BE ATTENDED TO, SAFETY MEASURES TAKEN, BED IN LOW POSITION, SIDE RAILS UP, CALL LIGHT WITHIN REACH.
[2020-04-16] MEDS: ACETYLCYSTEINE 10% SOLN 400 MG/4 ML VIAL NEB SCH (08:06)
[2020-04-16] MEDS: [UNRECOGNIZED DRUG - OTHER] PO SCH (08:16)
[2020-04-16] MEDS: DAPSONE 25 MG TABLET PO SCH (08:16)
[2020-04-16] MEDS: HYDROCORTISONE SOD SUCCINATE 100 MG/2 ML VIAL IV SCH ×2 (08:16→17:36)
[2020-04-16] MEDS: PANTOPRAZOLE 40 MG/PACK PACK NG SCH (08:16)
[2020-04-16] MEDS: ACYCLOVIR 200 MG CAPSULE PO SCH ×2 (08:17→17:36)
--- NOTE | 2020-04-16 11:25 | NUR ---
ICU/RN: BLOOD TRANSFUSION STARTED, WILL CONTINUE TO MONITOR. NO S/S OF ADVERSE REACTIONS NOTED. WILL CONTINUE TO MONITOR
[2020-04-16 11:28] LABS: ABG BASE EXCESS -5.4 mmol/L; ABG OXYGEN SATURATION 98.9 % (92.0-98.5); ABG PCO2 25.4 mmHg (35.0-45.0); ABG PH 7.464 (7.350-7.450); COHb 1.5 % (0.5-1.5); MetHb 1.8 % (0.0-1.5); O2Hb 95.6 % (94.0-97.0); SITE, ABG Left Radial
--- NOTE | 2020-04-16 13:48 | NUR ---
ICU/RN: BLOOD TRANSFUSION COMPLETE. TOLERATED WELL, NO ADVERSE REACTION NOTED, VSS
--- NOTE | 2020-04-16 18:38 | NUR ---
ICU/RN: ENDING NOTES,AM REPORT WILL BE ENDORSED TO NIGHT NURSE FOR YASHIRA. PT ALERT, FOLLOWS COMMANDS. PT ON SIMV MODE, POSSIBLE EXTUBATION TOMORROW POST BEDSIDE EGD. PROCEDURE SCHEDULED FOR 7AM. PT IS TO BE NPO AFTER MIDNIGHT. CONSENT IN CHART. SINUS TACH ON TELE, VSS. ALL NEEDS ATTENDED TO, SAFETY MEASURES TAKEN, BED IN LOW POSITION, SIDE RAILS UP, CALL LIGHT WITHIN REACH. BED BATH GIVEN, TURNED AND REPOSITIONED. WILL CONTINUE CARE. BILATERAL SOFT WRIST RESTRAINTS IN PLACE, ASSESSED PER PROTOCOL.
--- NOTE | 2020-04-16 19:30 | NUR ---
FAMILY LIFE EDUCATOR NOTES RECEIVED PATIENT IN BED ALERT AWAKE ORIENTED X1. RESPONSIVE TO VERBAL AND TACTILE STIMULI. NODS HIS HEAD TO YES OR NO IF QUESTION ASKED. BREATHING NORMAL NO SOB NOTED. RESPIRATION EVEN NON LABORED. ST ON TELE MONITOR. CONTINUES ON SIMV SETTING TOLERATING WELL ORDERED. RT NARE NG TUBE IN PLACE, FEEDING TOLERATING WELL ORDERED. BELEN PICC LINE PATENT AND INTACT, NO S/S OF INFECTION OR INFILTRATION NOTED. F/C INTACT URINE YELLOW AND CLEAR. BILATERAL SOFT RESTRAINS IN PLACE FOR SAFETY RELEASED AND CHECKED FOR CIRCULATION AND PULSE. SAFETY MEASURES IN PLACE, BED IN LOW AND LOCKED POSITION. CALL LIGHT WITHIN REACH. WILL CONT TO MONITOR.
[2020-04-16] MEDS: LEVOFLOXACIN (500MG) 500 MG TABLET PO SCH (20:24)
[2020-04-16] MEDS: FLUCONAZOLE (100 MG) 100 MG TABLET PO SCH (20:26)
[2020-04-16] MEDS: ACETAMINOPHEN 650 MG/20.3 ML UDC NG PRN (21:45)
--- NOTE | 2020-04-16 22:07 | NUR ---
RECEIVED PT INTUBATED 8.0 @ 24CM VIA ANCHOR FAST ON SIMV MODE. PT IS AWAKE AND NO RESP DISTRESS NOTED. PT TOLERATING SETTINGS. SX'D FOR SML AMT OF THIN WHITE SECRETIONS. VENT ALARMS SET AND AUDIBLE. ETT SECURE, CUFF CARTON MAKER. CONTINUE [facility] VENT SUPPORT. Addendum: 04/16/20 at 2208 by BETO BUTLER RT Amended: Links added.
[2020-04-17] VITALS (51 sets, daily range): BP systolic 71–154; BP diastolic 45–103
[2020-04-17] MEDS ORDERED: IV D5/0.45 NACL 500 ML IV ONE
--- NOTE | 2020-04-17 | NUR ---
RN NOTE DUE TO NPO STATUS OF THE PATIENT AND CURRENT DX OF DM APPLICATION CHEMIST TITI PAGED. CALLED BACK WITH NEW ORDERER TO START D5 1/2NS AT 75ML/HR NOTED AND CARRIED OUT.
[2020-04-17] MEDS: BLOOD SUGAR DIAGNOSTIC 1 EACH STRIP IN SCH ×4 (00:09→17:05)
[2020-04-17 03:09] LABS: MEAN CORPUSCULAR VOLUME 89 fL (80-96); MONOCYTES # (AUTO) 0.4 /CMM (0.1-1.30)
[2020-04-17 03:13] LABS: BASOPHILS % (AUTO) 0.5 % (0.0-2.0); EOSINOPHILS % (AUTO) 0.2 % (0.0-6.0); HEMATOCRIT 21 % (39-51); LYMPHOCYTES # (AUTO) 0.1 /CMM (0.8-4.8); LYMPHOCYTES % (AUTO) 1.3 % (20.0-44.0); MEAN CORPUSCULAR HGB CONC 33 g/dl (31.0-36.0); NEUTROPHILS # (AUTO) 8.4 /CMM (1.8-8.9); PLATELET COUNT (AUTO) 65 /CMM (150-450); RED BLOOD CELL COUNT(AUTO) 2.34 MIL/uL (4.5-6.0); WHITE BLOOD COUNT (AUTO) 8.9 K/uL (4.3-11.0)
[2020-04-17 03:14] LABS: CALCIUM, SERUM 7.7 mg/dL (8.5-10.1); CREATININE 1.1 mg/dL (0.6-1.3); POTASSIUM 3.8 mmol/L (3.5-5.1)
[2020-04-17 03:58] LABS: LYMPHOCYTES % (MANUAL) 1 % (16-48); MONOCYTES % (MANUAL) 2 % (0-11.0); NEUTROPHILS % (MANUAL) 97 (42-76)
[2020-04-17] MEDS ORDERED: ANESTHESIA TRAY IN PYXIS 1 EA TRAY MC ONE (06:23)
[2020-04-17] MEDS ORDERED: FENTANYL PF 100MCG/2ML AMPUL ONE (06:32)
[2020-04-17] MEDS ORDERED: methylPREDNISolone SOD SUCC 125 MG/2ML VIAL ONE (06:33)
--- NOTE | 2020-04-17 06:56 | NUR ---
FIELD TECHNICIAN NOTES PATIENT HAS A UNEVENTFUL NIGHT. NO S/S OF DISTRESS NOTED. NO S/S OF PAIN OR DISCOMFORT NOTED. BREATHING NORMAL NO SOB, TELE MONITOR ST. BELEN PICC LINE PATENT AND INTACT, NO S/S OF INFECTION OR INFILTRATION NOTED. F/C INTACT URINE YELLOW AND CLEAR. BILATERAL SOFT RESTRAINS IN PLACE FOR SAFETY RELEASED AND CHECKED FOR CIRCULATION AND PULSE. SAFETY MEASURES IN PLACE, BED IN LOW AND LOCKED POSITION. CALL LIGHT WITHIN REACH. ENDORSE PATIENT TO AM NURSE FOR YASHIRA.
--- NOTE | 2020-04-17 08:00 | NUR ---
ICU/RN INITIAL NOTES,AM RECEIVED REPORT FROM NIGHT NURSE FOR YASHIRA. PT INTUBATED ETT 7.5 AND 24CM AT THE LIP. ON SIMV SETTINGS ORDERED BY MD, TOLERATING WELL, NO ACUTE DISTRESS NOTED. OR STAFF AT BEDSIDE, EGD ONGOING. PT SINUS TACH ON TELE. RIGHT NARE NG TUBE IN PLACE, NPO AT THIS TIME. COLOSTOMY NOTED/WHITE CATH DRAINING. RIGHT UPPER ARM PICC PATENT AND INTACT, NO S/S OF INFECTION OR INFILTRATION NOTED.BILATERAL SOFT WRIST RESTRAINTS IN PLACE, ASSESSED PER PROTOCOL. ALL NEEDS WILL BE ATTENDED TO, SAFETY MEASURES TAKEN, BED IN LOW POSITION, SIDE RAILS UP, CALL LIGHT WITHIN REACH.
[2020-04-17] MEDS: DAPSONE 25 MG TABLET PO SCH (08:34)
[2020-04-17] MEDS: ACYCLOVIR 200 MG CAPSULE PO SCH ×2 (08:34→17:00)
[2020-04-17] MEDS: PANTOPRAZOLE 40 MG/PACK PACK NG SCH (08:34)
[2020-04-17] MEDS: HYDROCORTISONE SOD SUCCINATE 100 MG/2 ML VIAL IV SCH ×2 (08:34→17:09)
[2020-04-17] MEDS: [UNRECOGNIZED DRUG - OTHER] PO SCH (08:34)
[2020-04-17] MEDS ORDERED: DC PROPOFOL WHEN EXTUBATED XX PRN (09:00)
[2020-04-17] MEDS ORDERED: BIKTARVY PO SCH (09:00)
[2020-04-17] MEDS: PANTOPRAZOLE 80 MG in IV NS 0.9% 500 ML IV PRN ×2 (10:03→19:12)
--- NOTE | 2020-04-17 10:45 | NUR ---
ICU/RN: INITIATED BLOOD TRANSFUSION. NO S/S OF ADVERSE REACTIONS NOTED, WILL CONTINUE TO MONITOR AND ASSESS. PT AFEBRILE, VSS
[2020-04-17] MEDS: INSULIN REGULAR, HUMAN 100 UNIT/ML 3 ML VIAL SQ PRN ×2 (12:01→17:21)
--- NOTE | 2020-04-17 13:25 | NUR ---
ICU/RN: END OF BLOOD TRANSFUSION, PT TOLERATED WELL, NO S/S OF ADVERSE REACTIONS NOTED. VSS.
--- NOTE | 2020-04-17 13:39 | NUR ---
ICU/RN: PT EXTUBATED, PLACED ON 3LITERS NASAL CANULA, TOLERATING WELL. VITAL SIGNS STABLE. NO ACUTE DISTRESS NOTED/ WILL CONTINUE TO MONITOR.
--- NOTE | 2020-04-17 13:44 | NUR ---
RT NOTE LATE ENTRY- AWAKE AND ALERT PATIENT WAS EXTUBATED AT THIS TIME AND PLACED ON OXYGEN 3LPM VIA NASAL CANNULA. PATIENT TOLERATING WELL WITH OXYGEN SATURATION OF 99%. NURSE (JAMES) AWARE.
[2020-04-17] MEDS ORDERED: IV D5/0.45 NACL 1,000 ML IV ONE (15:00)
[2020-04-17 18:04] LABS: HEMOGLOBIN 8.2 g/dL (13.5-17.5)
[2020-04-17] MEDS: IV D5/0.45 NACL 1,000 ML IV PRN (18:51)
--- NOTE | 2020-04-17 19:19 | NUR ---
ICU/RN: ENDING NOTES,AM REPORT ENDORSED TO NIGHT NURSE FOR YASHIRA. PT ALERT, FOLLOWS COMMANDS. PT EXTUBATED TODAY AT 1339, NOW ON 3LITERS NASAL CANULA, NO DISTRESS, TOLERATING WELL. SINUS TACH ON TELE, VSS. ALL NEEDS ATTENDED TO, SAFETY MEASURES TAKEN, BED IN LOW POSITION, SIDE RAILS UP, CALL LIGHT WITHIN REACH. BED BATH GIVEN, TURNED AND REPOSITIONED. WILL CONTINUE CARE. ONE UNIT PRBC TRANSFUSED, TOLERATED WELL.
--- NOTE | 2020-04-17 19:30 | NUR ---
BELLING MACHINE OPERATOR NOTES RECEIVED PATIENT IN BED, AWAKE FOLLOWS SIMPLE COMMANDS. EXTUBATED ON OXYGEN 3L/MIN VIA NC SATURATING WELL. BREATHING NORMAL NO SOB NOTED. NO S/S OF DISTRESS NOTED. TELE MONITOR ST. BELEN PICC LINE INTACT FLUSHING WELL. F/C INTACT DARNING WELL WITH GRAVITY NO LEAKAGE NOTED. LEFT SIDE COLOSTOMY INTACT. SAFETY MEASURES IN PLACE, BED IN LOW AND LOCKED POSITION. CALL LIGHT WITHIN REACH. WILL CONT TO MONITOR.
[2020-04-17] MEDS: LEVOFLOXACIN (500MG) 500 MG TABLET PO SCH ×2 (20:00→20:45)
--- NOTE | 2020-04-17 20:30 | NUR ---
MEDICATIONS WERE PULL OUT FROM THE PYXIS CRUSHED THE MEDICATIONS. PATIENT REFUSED TO INSERT THE NGT. MEDICATIONS WERE NON ADMINISTERED. CHARGE NURSE AWARE. PATIENT SCHEDULED FOR SWALLOW EVAL IN AM.
[2020-04-17] MEDS: FLUCONAZOLE (100 MG) 100 MG TABLET PO SCH ×2 (20:45→21:00)
[2020-04-17 20:46] LABS: HEMOGLOBIN 8.9 g/dL (13.5-17.5)
[2020-04-18] VITALS (19 sets, daily range): BP systolic 115–156; BP diastolic 60–117
[2020-04-18] MEDS: BLOOD SUGAR DIAGNOSTIC 1 EACH STRIP IN SCH ×4 (00:19→17:03)
[2020-04-18] MEDS: INSULIN REGULAR, HUMAN 100 UNIT/ML 3 ML VIAL SQ PRN (00:28)
[2020-04-18 04:34] LABS: BASOPHILS # (AUTO) 0.1 /CMM (0.0-0.2); BASOPHILS % (AUTO) 1.3 % (0.0-2.0); HEMATOCRIT 24 % (39-51); HEMOGLOBIN 7.9 g/dL (13.5-17.5); LYMPHOCYTES # (AUTO) 0.2 /CMM (0.8-4.8); LYMPHOCYTES % (AUTO) 1.6 % (20.0-44.0); MEAN CORPUSCULAR HGB CONC 33 g/dl (31.0-36.0); MEAN CORPUSCULAR VOLUME 92 fL (80-96); MONOCYTES # (AUTO) 0.5 /CMM (0.1-1.30); MONOCYTES % (AUTO) 5.2 % (2.0-12.0); NEUTROPHILS # (AUTO) 8.9 /CMM (1.8-8.9); NEUTROPHILS % (AUTO) 91.9 % (43.0-81.0); PLATELET COUNT (AUTO) 72 /CMM (150-450); RED BLOOD CELL COUNT(AUTO) 2.58 MIL/uL (4.5-6.0); WHITE BLOOD COUNT (AUTO) 9.7 K/uL (4.3-11.0)
[2020-04-18 04:45] LABS: CALCIUM, SERUM 7.7 mg/dL (8.5-10.1); CREATININE 1.1 mg/dL (0.6-1.3); POTASSIUM 3.8 mmol/L (3.5-5.1)
[2020-04-18] MEDS: PANTOPRAZOLE 80 MG in IV NS 0.9% 500 ML IV PRN (06:33)
[2020-04-18 06:36] LABS: LYMPHOCYTES % (MANUAL) 2 % (16-48); MONOCYTES % (MANUAL) 7 % (0-11.0); NEUTROPHILS % (MANUAL) 91 (42-76)
--- NOTE | 2020-04-18 07:30 | NUR ---
MOTORMAN/WOMAN OPENING NOTE RECEIVED PATIENT IN BED, AWAKE FOLLOWS SIMPLE COMMANDS. EXTUBATED ON 04/17, ON OXYGEN AT 3L/MIN VIA NC SATURATING WELL. BREATHING NORMAL NO SOB NOTED. NO S/S OF DISTRESS NOTED. TELE MONITOR ST HR AT 120. BELEN PICC LINE INTACT FLUSHING WELL. F/C INTACT DARNING WELL WITH GRAVITY NO LEAKAGE NOTED. LEFT SIDE COLOSTOMY INTACT. SAFETY MEASURES IN PLACE, BED IN LOW AND LOCKED POSITION. CALL LIGHT WITHIN REACH. WILL CONTINUE TO MONITOR.
--- NOTE | 2020-04-18 07:31 | NUR ---
VETERINARY SURGERY TECHNOLOGIST NOTES REPORT GIVEN TO AM NURSE FOR YASHIRA. PATIENT HAS A UNEVENTFUL NIGHT NO SIGNIFICANT CHANGES NOTED DURING NIGHT. NO S/S OF PAIN OR DISTRESS NOTED. BREATHING NORMAL NO SOB NOTED. BELEN PICC LINE INTACT FLUSHING WELL. F/C INTACT DARNING WELL WITH GRAVITY NO LEAKAGE NOTED. LEFT SIDE COLOSTOMY INTACT. ALL NEEDS ARE ATTENDED. KEPT CLEAN DRY AND COMFORTABLE. BED IN LOW AND LOCKED POSITION. CALL LIGHT WITHIN REACH. ENDORSE PATIENT TO AM NURSE FOR YASHIRA.
--- NOTE | 2020-04-18 08:18 | NUR ---
WOUND CARE FOLLOW UP: PT SEEN FOR RE-EVALUATION OF SACRAL DEEP TISSUE INJURY WHICH IS NOW IN EVOLUTION, PRESENT ON ADMISSION. PT ALSO NOTED TO HAVE GENERALIZED PITTING EDEMA (4+) WITH WEEPING OF UPPER EXTREMITIES, DUSKY COLOR TO FEET AND HEELS AND SOME AREAS OF BRUISING/DISCOLORATION. RECOMMENDATIONS MADE FOR SKIN PROTECTION AND WOUND CARE. DISCUSSED WITH NURSING STAFF. [facility] WILL SEE PRN. ALFARO IN AGREEMENT WITH PLAN OF CARE. Addendum: 04/18/20 at 0820 by SARI CASTELAN WNDNU Amended: Links added.
[2020-04-18] MEDS: DAPSONE 25 MG TABLET PO SCH (09:00)
[2020-04-18] MEDS: [UNRECOGNIZED DRUG - OTHER] PO SCH (09:00)
[2020-04-18] MEDS: ACYCLOVIR 200 MG CAPSULE PO SCH ×2 (09:00→16:42)
[2020-04-18] MEDS: PANTOPRAZOLE 40 MG/PACK PACK NG SCH (09:00)
[2020-04-18] MEDS: HYDROCORTISONE SOD SUCCINATE 100 MG/2 ML VIAL IV SCH ×2 (09:51→16:48)
[2020-04-18] MEDS: IV D5/0.45 NACL 1,000 ML IV PRN (09:52)
--- NOTE | 2020-04-18 10:30 | NUR ---
RN NOTE PATIENT TRANSFERRED TO [facility] PER MD ORDER. PATIENT IN STABLE CONDITION, VITAL SIGNS ARE STABLE, PATIENT IS TACHY WITH HR IN 120S, MD IS AWARE. PATIENT SAFETY WAS MAINTAINED, CALL LIGHT WITHIN REACH, ENDORSED TO 3 TERESA RN FOR CONTINUITY OF CARE.
--- NOTE | 2020-04-18 11:00 | NUR ---
ROGER/RN - Assessment Received from ICU, patient is awake, A/O x 2-3, lethargic, tachypneic, on supplemental oxygen at 3lpm via NC, tele shows ST 120s-130s, denies pain at this time, currently NPO. IVF D5 1/2 NS at 75 ml/hr infusing well on the BELEN PICC with no signs of infiltration, also on Protonix drip for duodenal ulcer management. Per endorsement, 1 unit PRBC to be given as ordered by Dr. Gillespie. Patient's hgb is 7.9, no active bleeding. Per Dr. Robbins, transfuse if hgb <7. CXR today showed lung volumes remain diminished with bibasilar atelectasis/infiltrates and left greater than right pleural effusions, will clarify order of transfusion. Patient refused skin pictures to be taken. All pressure ulcer prevention measures noted to be in place. Fall and aspiration precautions maintained. Will continue with current medical management.
--- NOTE | 2020-04-18 13:00 | NUR ---
ROGER/RN - MD Williamson Spoke with Dr. Brown with order to hold off on 1 unit PRBC, do hgb/hct now, and transfuse 1 unit PRBC if hgb <7.
[2020-04-18 15:23] LABS: HEMOGLOBIN 6.9 g/dL (13.5-17.5)
--- NOTE | 2020-04-18 16:40 | NUR ---
ROGER/RN - Notes Blood transfusion ongoing, 1 unit PRBC as ordered, no adverse reaction seen, vital signs monitored per protocol.
--- NOTE | 2020-04-18 18:55 | NUR ---
ROGER/RN - End of shift summary Patient states feeling better, s/p 1 unit PRBC, no adverse reaction noted, h/h draw at 20:00, standing order of 1 unit PRBC if hgb <7. Trinidad catheter in place draining cloudy yellow urine, total output 1000 ml this shift. Left ileostomy intact. All needs attended. Will continue to monitor for bleeding, endorsed accordingly.
[2020-04-18] MEDS: LEVOFLOXACIN (500MG) 500 MG TABLET PO SCH (20:00)
--- NOTE | 2020-04-18 20:00 | NUR ---
RN NOTES RECEIVED pt. AWAKE ON BED, ST ON TELE MONITOR HR-125, A/O2-3, F/CDRAINING CLEAR YELLOW URINE, ILEOSTOMY IN PLACE, NOT IN DISTRESS, NO PAIN NOTED, CALL LIGHT WITHIN REACH, SIDERAILSUPX2, CONTINUE TO MONITOR
[2020-04-18] MEDS: FLUCONAZOLE (100 MG) 100 MG TABLET PO SCH (20:45)
[2020-04-18] MEDS: PANTOPRAZOLE 40 MG VIAL IV SCH (21:02)
--- NOTE | 2020-04-18 21:30 | NUR ---
RN NOTES SPOEKE TO DR. SARMIENTO REGARDING PT. H&H RESULT-7. AND INFORMED DR. SARMIENTO ABOUT THE STANDING ORDER. DR. SARMIENTO GAVE TOLD ME TO WAIT IN THE MORNING, CHARGE NURSE MADE AWARE
[2020-04-19] VITALS (34 sets, daily range): BP systolic 97–141; BP diastolic 30–97
[2020-04-19] MEDS: BLOOD SUGAR DIAGNOSTIC 1 EACH STRIP IN SCH ×5 (00:05→23:36)
[2020-04-19] MEDS: IV D5/0.45 NACL 1,000 ML IV PRN ×2 (05:50→16:29)
--- NOTE | 2020-04-19 06:45 | NUR ---
RN NOTES AWAKE, MORNING CARE RENDERED, NOT IN DISTRESS, NO PAIN NOTED, ILEOSTOMY CHANGE, SIDERIALSUPX2, PT. NEEDS ATTENDED
--- NOTE | 2020-04-19 08:00 | NUR ---
ROGER/RN - Assessment Patient is awake, A/O x 2-3, no complaints overnight, denies pain, on supplemental oxygen at 3lpm via NC, saturation 99%, tele shows ST 120s, on IVF D5 1/2 NS at 75 ml/hr infusing well on the BELEN PICC with no signs of infiltration. Trinidad catheter in place due to pt is hemodynamically unstable. Left side ileostomy intact. Patient is currently NPO, pending swallow eval. Labs reviewed, hemoglobin improved, no active bleeding. Fall and aspiration precautions maintained. Will continue with current medical management.
[2020-04-19] MEDS: PANTOPRAZOLE 40 MG VIAL IV SCH ×2 (08:10→20:25)
[2020-04-19] MEDS: DAPSONE 25 MG TABLET PO SCH (08:10)
[2020-04-19] MEDS: HYDROCORTISONE SOD SUCCINATE 100 MG/2 ML VIAL IV SCH ×2 (08:10→17:06)
[2020-04-19] MEDS: [UNRECOGNIZED DRUG - OTHER] PO SCH (08:10)
[2020-04-19] MEDS: ACYCLOVIR 200 MG CAPSULE PO SCH ×2 (08:11→17:07)
[2020-04-19 08:50] LABS: BASOPHILS % (AUTO) 0.3 % (0.0-2.0); EOSINOPHILS % (AUTO) 0.1 % (0.0-6.0); HEMATOCRIT 29 % (39-51); HEMOGLOBIN 9.2 g/dL (13.5-17.5); LYMPHOCYTES # (AUTO) 0.3 /CMM (0.8-4.8); LYMPHOCYTES % (AUTO) 2.2 % (20.0-44.0); MEAN CORPUSCULAR HGB CONC 32 g/dl (31.0-36.0); MEAN CORPUSCULAR VOLUME 95 fL (80-96); MONOCYTES # (AUTO) 0.8 /CMM (0.1-1.30); MONOCYTES % (AUTO) 6.4 % (2.0-12.0); NEUTROPHILS # (AUTO) 11.8 /CMM (1.8-8.9); PLATELET COUNT (AUTO) 86 /CMM (150-450); RED BLOOD CELL COUNT(AUTO) 3.04 MIL/uL (4.5-6.0)
[2020-04-19 08:54] LABS: CALCIUM, SERUM 8.1 mg/dL (8.5-10.1); CREATININE 1.1 mg/dL (0.6-1.3); POTASSIUM 3.9 mmol/L (3.5-5.1)
--- NOTE | 2020-04-19 10:15 | NUR ---
ROGER/RN - MD Order Patient's current RR 38, Dr. Mendez at bedside with order for ABG and transfer to ICU for intubation. CN made aware.
[2020-04-19 10:18] LABS: ABG OXYGEN SATURATION 80.7 % (92.0-98.5); ABG PCO2 80.7 mmHg (35.0-45.0); ABG PH 6.999 (7.350-7.450); AaDO2 79.7 mmHg; COHb 0.5 % (0.5-1.5); MetHb 0.6 % (0.0-1.5); O2Hb 79.8 % (94.0-97.0); SITE, ABG Right Radial; VENT MODE, BG 3 LPM N/C
[2020-04-19 10:18] LABS: BAND % (MANUAL) 1 % (0.0-5.0); EOSINOPHILS % (MANUAL) 1 % (0-4); LYMPHOCYTES % (MANUAL) 3 % (16-48); MONOCYTES % (MANUAL) 3 % (0-11.0); NEUTROPHILS % (MANUAL) 92 (42-76)
--- NOTE | 2020-04-19 10:25 | NUR ---
ROGER/RN - Transfer Patient was transferred to ICU Rm [id number] via ACLS protocol. Endorsed accordingly.
--- NOTE | 2020-04-19 10:35 | NUR ---
PATIENT TRANSFERRED FROM [facility]OND[facility] TO [facility], RESPIRATORY ACIDOSIS FOR EMERGENCY INTUBATION PER DR. HAGEN. PLACED A CALL TO DR. CARTER -TO INTUBATE PATIENT.
--- NOTE | 2020-04-19 10:50 | NUR ---
PATIENT INTUBATED -7.5 CM /[address] CARTER. PLACED ON THE VENT BY RT WITH VENT SETTINGS PER DP. PELEG AC24 /450/ 100% /+5 . LEFT NGT PLACED , STAT CXR DONE.
--- NOTE | 2020-04-19 11:35 | NUR ---
RT pt intubated post abg results. intubated with 7.5 ett at 24@lip. color change via o2 detector. vent settings: AC 24 450 100% +5. moderate yellow thick secretions suctioned via ett tube. pt saturation 99%. lung sounds clear. abg to follow. will continue to monitor
--- NOTE | 2020-04-19 12:00 | NUR ---
POST INTUBATION ABG SEEN BY DR. HAGEN-DECREASED FIO2 50% BY RT. PATIENT SUCTIONED VIA ETT/ORALLY WITH MODERATE AMOUNT OF THICH FERREIRA SECRETIONS. REMAINS OBTUNDED AT THIS TIME. NO PURPOSEFUL MOVEMENT ON ALL EXTREMITIES. +GAG/cOUGH REFLEX. BS-117.
[2020-04-19 12:02] LABS: ABG OXYGEN SATURATION 99.4 % (92.0-98.5); ABG PCO2 29.3 mmHg (35.0-45.0); ABG PH 7.303 (7.350-7.450); ABG PO2 390.8 mmHg (75.0-100.0); AaDO2 292.9 mmHg; COHb 0.3 % (0.5-1.5); MetHb 0.3 % (0.0-1.5); O2Hb 98.8 % (94.0-97.0); SITE, ABG Right Radial; VENT MODE, BG AC 24 450 +5 100
[2020-04-19] MEDS ORDERED: SUCCINYLCHOLINE CHLORIDE 20 MG/ML VIAL IV ONE (12:22)
[2020-04-19] MEDS ORDERED: ETOMIDATE 2 MG/ML VIAL IV ONE (12:22)
--- NOTE | 2020-04-19 14:00 | NUR ---
VSS REMAINS STABLE. NO S CP DISTRESS NOTED.
--- NOTE | 2020-04-19 16:00 | NUR ---
COMPLETE PM CARE DONE. SKIN CARE DONE. BUE WEEPING FROM EDEMA. KEPT ELEVATED WITH PILLOWS. SACRAL DTI REMAINS INTACT/PURPLISH . COVERED WITH MEPILEX FOR PROTECTION. PATIENT AT THIS TIMED MORE AWAKE, OPENING EYES, BITING ETT. START DIPRIVAN DRIP PER PROTOCOL. VSS.
[2020-04-19] MEDS: PROPOFOL 100 ML IV PRN (16:29)
--- NOTE | 2020-04-19 19:10 | NUR ---
ACTIVITY THERAPY TEACHER OPENING NOTES: Received pt intubated 7.5/24cm at the lipline on mechanical ventilation. No SOB or respiratory distress noted. Has left NGT patent and flushed. Has BELEN PICC line patent and flushed w/ D5 1/2NS running at 75ml/hr. On Diprivan sedation 10mcg/kg/min. Tolerating well. Colostomy present with no output. FC patent and draining urine via gravity. No pain noted at this time. Safety measures in place. Will continue to monitor.
[2020-04-19] MEDS: LEVOFLOXACIN (500MG) 500 MG TABLET PO SCH (20:04)
--- NOTE | 2020-04-19 20:05 | NUR ---
PT RECEIVED ORALLY INTUBATED WITH 7.5 ETT SECURED @ 24 CM LIP LINE ON VENT WITH NOTED SETTINGS. NO SIGNS OF RESP DISTRESS/SOB NOTED AT THIS TIME. FLIGHT ENGINEER HELICOPTER DONE. PT SUCTIONED. ALARMS SET AND AUDIBLE. VENT PLUGGED INTO RED OUTLET. AMBU BAG AT [facility]. WILL CONT TO MONITOR THE PT T/O SHIFT.
[2020-04-19] MEDS: FLUCONAZOLE (100 MG) 100 MG TABLET PO SCH (20:25)
[2020-04-19] MEDS: INSULIN REGULAR, HUMAN 100 UNIT/ML 3 ML VIAL SQ PRN (23:37)
[2020-04-20] VITALS (56 sets, daily range): BP systolic 70–133; BP diastolic 39–87
--- NOTE | 2020-04-20 03:45 | NUR ---
METAL WORK DUCT INSTALLER NOTE: Per RT, titrated pt's FiO2 from 50% down to 40%. Will continue to monitor.
[2020-04-20] MEDS: IV D5/0.45 NACL 1,000 ML IV PRN ×2 (04:00→20:58)
[2020-04-20 04:20] LABS: BASOPHILS % (AUTO) 0.4 % (0.0-2.0); HEMATOCRIT 26 % (39-51); HEMOGLOBIN 8.6 g/dL (13.5-17.5); LYMPHOCYTES # (AUTO) 0.1 /CMM (0.8-4.8); LYMPHOCYTES % (AUTO) 1.3 % (20.0-44.0); MEAN CORPUSCULAR HGB CONC 33 g/dl (31.0-36.0); MEAN CORPUSCULAR VOLUME 93 fL (80-96); MONOCYTES # (AUTO) 0.4 /CMM (0.1-1.30); MONOCYTES % (AUTO) 4.4 % (2.0-12.0); NEUTROPHILS # (AUTO) 7.9 /CMM (1.8-8.9); NEUTROPHILS % (AUTO) 93.9 % (43.0-81.0); PLATELET COUNT (AUTO) 59 /CMM (150-450); RED BLOOD CELL COUNT(AUTO) 2.75 MIL/uL (4.5-6.0); WHITE BLOOD COUNT (AUTO) 8.4 K/uL (4.3-11.0)
[2020-04-20 04:35] LABS: CALCIUM, SERUM 7.9 mg/dL (8.5-10.1); POTASSIUM 3.4 mmol/L (3.5-5.1)
[2020-04-20 05:27] LABS: LYMPHOCYTES % (MANUAL) 1 % (16-48); MONOCYTES % (MANUAL) 2 % (0-11.0); NEUTROPHILS % (MANUAL) 97 (42-76)
[2020-04-20] MEDS: BLOOD SUGAR DIAGNOSTIC 1 EACH STRIP IN SCH ×4 (05:38→23:12)
[2020-04-20] MEDS: INSULIN REGULAR, HUMAN 100 UNIT/ML 3 ML VIAL SQ PRN ×3 (05:38→17:50)
[2020-04-20] MEDS: PROPOFOL 100 ML IV PRN ×2 (06:00→18:28)
--- NOTE | 2020-04-20 06:50 | NUR ---
RN CLOSING NOTES: No significant changes noted. Per RT titrated FiO2 down to 40% tolerating well. Kept HOB elevated. Kept clean and dry. All meds administered as ordered. Safety measures in place. Will endorse to AM nurse for YASHIRA.
[2020-04-20 08:21] LABS: ABG BASE EXCESS -8.4 mmol/L; ABG OXYGEN SATURATION 98.6 % (92.0-98.5); ABG PCO2 25.6 mmHg (35.0-45.0); ABG PH 7.398 (7.350-7.450); ABG PO2 134.8 mmHg (75.0-100.0); COHb 0.9 % (0.5-1.5); MetHb 0.5 % (0.0-1.5); O2Hb 97.2 % (94.0-97.0); SITE, ABG Left Radial
[2020-04-20] MEDS ORDERED: DEXTROSE 50%-WATER 50 ML DISP.SYRIN IV PRN (08:30)
[2020-04-20] MEDS: POTASSIUM CL. PREMIX PERIPHER. 50 ML IV SCH ×2 (08:52→11:18)
[2020-04-20] MEDS: HYDROCORTISONE SOD SUCCINATE 100 MG/2 ML VIAL IV SCH ×2 (08:52→16:53)
[2020-04-20] MEDS: [UNRECOGNIZED DRUG - OTHER] PO SCH (08:52)
[2020-04-20] MEDS: PANTOPRAZOLE 40 MG VIAL IV SCH ×2 (08:52→20:58)
[2020-04-20] MEDS: ACYCLOVIR 200 MG CAPSULE PO SCH ×2 (08:52→16:53)
[2020-04-20] MEDS: DAPSONE 25 MG TABLET PO SCH (08:53)
--- NOTE | 2020-04-20 12:00 | NUR ---
PTS TEMP WAS 93.9 TEMPORAL, FELICIANO HUGGER ORDERED AND APPLIED. WILL CONTINUE TO MONITOR
--- NOTE | 2020-04-20 13:46 | NUR ---
RT NOTE PT RCVD ORALLY INTUBATED WITH 7.5 ETT AND 24 CM @ LIP ON MECHANICAL VENT WITH CHARTED SETTINGS. SX DONE. PT ETT IS PATENT AND SECURE. VENT ALARMS ARE ON AND AUDIBLE. VENT PLUGGED INTO RED OUTLET. AMBU BAG AT BEDSIDE. Addendum: 04/20/20 at 1347 by ABBI DODD RT Amended: Links added.
[2020-04-20] MEDS ORDERED: IV NS 0.9% 500 ML IV ONE (16:00)
[2020-04-20] MEDS: NOREPINEPHRINE 8 MG in IV NS 0.9% 242 ML IV PRN (17:00)
--- NOTE | 2020-04-20 18:54 | NUR ---
END OF SHIFT NOTE: PT HAD A FAIRLY EVENTFUL SHIFT. PT'S TEMP DROPPED TO 93.9 AT NOON, FELICIANO HUGGER APPLIED. TEMP CAME BACK UP TO NORMAL WITHIN A FEW HOURS. PT'S SYSTOLIC BLOOD PRESSURE DROPPED INTO THE LOW TO MID 80'S PER DR. HAGEN 1 500 NS BOLUS GIVEN. BLOOD PRESSURE DID NOT COME UP AFTER BOLUS. LEVOPHED GTT STARTED, CURRENTLY INFUSING AT 0.1MCG/KG/MIN. PROPOFOL INCREASED TO 15MCG/KG/MIN D/T PT BITING ETT. PT CHECKED ON HOURLY AND PRN BY NURSING STAFF.
--- NOTE | 2020-04-20 20:20 | NUR ---
RT NOTE PATIENT RECEIVED ORALLY INTUBATED WITH 7.5 ETT SECURED AT 24CM MID LIP LINE ON MECHANICAL VENT. ALARMS VERIFIED AND AUDIBLE. VENT PLUGGED INTO RED OUTLET. ALONDRA MALIK AT [facility]. WILL CONTINUE TO MONITOR T/O SHIFT Addendum: 04/20/20 at 2021 by BRIELLE PRITCHETT RT Amended: Links added.
[2020-04-20] MEDS: LEVOFLOXACIN (500MG) 500 MG TABLET PO SCH (20:57)
[2020-04-20] MEDS: FLUCONAZOLE (100 MG) 100 MG TABLET PO SCH (20:57)
--- NOTE | 2020-04-20 21:45 | NUR ---
SEWING MACHINE MECHANIC: ALL CHARTING AND MED. ADMINISTRATION BETWEEN [phone] DONE BY PRIMARY NURSE AND NOT BY IRMA JOSHUA (DAY SHIFT RN FORGOT TO LOG OUT MEDITECH AND MISSED BY PRIMARY NURSE).
[2020-04-21] VITALS (96 sets, daily range): BP systolic 93–140; BP diastolic 64–94
[2020-04-21] MEDS: BLOOD SUGAR DIAGNOSTIC 1 EACH STRIP IN SCH ×4 (05:26→23:58)
[2020-04-21] MEDS: PROPOFOL 100 ML IV PRN ×3 (05:27→20:58)
--- NOTE | 2020-04-21 06:05 | NUR ---
STEAM FITTER HELPER: NO SIGNIFICANT YASHIRA DURING THE SHIFT. REMAINED ORALLY INTUBATED WT VENT SETTINGS ORDERED. SEDATED ON DIPRIVAN AT 25MCG/KG/MIN. CONTINUE ON LEVOPHED AT 0.08MCG/KG/MIN FOR BP SUPPORT AND D5 1/2NS AT 75ML/HR. RESTARTED ON FELICIANO HUGGER SHORTLY AFTER GIVEN BED BATH WT TEMP NOW AT 96.8. GOOD SKIN CARE RENDERED. HOB AT 35 DEGREES, BED IN LOWEST POSITION AND LOCKED. SIDE RAILS UPX2. ALL NEEDS MET. WILL CONTINUE TO MONITOR.
[2020-04-21] MEDS ORDERED: IV NS 0.9% 1,000 ML IV SCH (07:59)
[2020-04-21] MEDS ORDERED: ALTEPLASE CATHFLO 2 MG/VIAL XX ONE (09:00)
[2020-04-21 09:03] LABS: ABG BASE EXCESS -5.6 mmol/L; ABG OXYGEN SATURATION 97.3 % (92.0-98.5); ABG PCO2 21.3 mmHg (35.0-45.0); ABG PH 7.507 (7.350-7.450); ABG PO2 99.6 mmHg (75.0-100.0); AaDO2 89.3 mmHg; COHb 0.6 % (0.5-1.5); O2Hb 95.7 % (94.0-97.0); SITE, ABG Left Radial
--- NOTE | 2020-04-21 09:05 | NUR ---
RT NOTE ABG RESULTS RELAYED TO MD HAGEN.
[2020-04-21 09:25] LABS: BASOPHILS % (AUTO) 0.4 % (0.0-2.0); EOSINOPHILS % (AUTO) 0.1 % (0.0-6.0); HEMATOCRIT 24 % (39-51); LYMPHOCYTES # (AUTO) 0.2 /CMM (0.8-4.8); MEAN CORPUSCULAR HGB CONC 34 g/dl (31.0-36.0); MEAN CORPUSCULAR VOLUME 92 fL (80-96); MONOCYTES # (AUTO) 0.3 /CMM (0.1-1.30); MONOCYTES % (AUTO) 3.3 % (2.0-12.0); NEUTROPHILS # (AUTO) 8.6 /CMM (1.8-8.9); NEUTROPHILS % (AUTO) 94.2 % (43.0-81.0); PLATELET COUNT (AUTO) 69 /CMM (150-450); RED BLOOD CELL COUNT(AUTO) 2.55 MIL/uL (4.5-6.0); WHITE BLOOD COUNT (AUTO) 9.1 K/uL (4.3-11.0)
[2020-04-21] MEDS: ACYCLOVIR 200 MG CAPSULE PO SCH ×2 (09:44→18:19)
[2020-04-21] MEDS: HYDROCORTISONE SOD SUCCINATE 100 MG/2 ML VIAL IV SCH ×2 (09:44→18:19)
[2020-04-21] MEDS: [UNRECOGNIZED DRUG - OTHER] PO SCH (09:45)
[2020-04-21] MEDS: DAPSONE 25 MG TABLET PO SCH (09:45)
[2020-04-21 10:13] LABS: BILIRUBIN,TOTAL 0.4 mg/dL (0.2-1.0); CALCIUM, SERUM 7.4 mg/dL (8.5-10.1); MAGNESIUM 1.7 mg/dL (1.8-2.4); PHOSPHORUS 2.5 mg/dL (2.5-4.9); TOTAL PROTEIN, SERUM 3.5 g/dL (6.4-8.2)
[2020-04-21 10:15] LABS: ALBUMIN 1.2 g/dL (3.4-5.0); POTASSIUM 2.8 mmol/L (3.5-5.1)
[2020-04-21] MEDS ORDERED: Magnesium 1GM/D5W 100ML PREMIX PIGGYBACK IV STA (10:42)
[2020-04-21] MEDS: POTASSIUM CHLORIDE 20 MEQ POWDER PACKET NG SCH ×4 (10:47→13:14)
[2020-04-21] MEDS: Magnesium 1GM/D5W 100ML PREMIX 100 ML IV SCH ×2 (10:48→12:16)
--- NOTE | 2020-04-21 11:09 | NUR ---
RN WAS ABOUT TO START SEDATION VACATION WHEN PATIENT WOKE UP AND WAS ANSWERING YES AND NO QUESTIONS APPROPRIATELY AND INDICATED THAT HE IS NOT IN PAIN, POSITION IS COMFORTABLE, IS WARM ENOUGH BUT WANTS THE SEDATION TURNED UP FOR OVERALL COMFORT. PROPOFOL GTT INCREASED PER PT REQUEST. NO SEDATION VACATION TODAY PER PATIENT. WILL CONTINUE TO MONITOR.
--- NOTE | 2020-04-21 11:29 | NUR ---
DR. AGUIRRE NOTIFIED OF POTASSIUM RESULTS OF 2.8 AT 1030, ORDER GIVEN FOR 20MEQ POTASSIUM PER NG Q1H X4. DR. AGUIRRE NOTIFIED OF MAG RESULTS OF 1.7 AT 1040, ORDER GIVEN FOR 2GM IV MAG NOW. DR. HAGEN NOTIFIED OF PREVIOUS ORDERS AND PT'S HGB OF 8.0, NO ORDER FOR BLOOD TRANSFUSION AT THIS TIME.
[2020-04-21 11:38] LABS: BAND % (MANUAL) 1 % (0.0-5.0); LYMPHOCYTES % (MANUAL) 3 % (16-48); MONOCYTES % (MANUAL) 2 % (0-11.0); NEUTROPHILS % (MANUAL) 94 (42-76)
[2020-04-21] MEDS: Potassium Chloride 40 MEQ in IV NS 0.9% 1,000 ML IV PRN ×2 (12:22→21:04)
--- NOTE | 2020-04-21 13:15 | NUR ---
USING PRESCRIBED CATHFLO WHITE PORT, THAT WAS NOT FLUSHING OR DRAWING BACK BLOOD HAS BEEN CLEARED AND NOW FLUSHES AND DRAWS BACK BLOOD. A TOTAL OF 120 MINUTES TO CLEAR LINE PER PROTOCOL. Addendum: 04/21/20 at 1352 by SILVINO WRIGHT RN THE ABOVE REFERS TO THE RIGHT UPPER ARM TRIPLE LUMEN PICC
--- NOTE | 2020-04-21 13:37 | NUR ---
AFTER CLEARING THE WHITE PORT OF THE RIGHT UPPER ARM TRIPLE LUMEN PICC, THE BRAUN PORT NOW FLUSHES AND DRAWS BACK BLOOD ALSO. PRIOR TO CATHFLO IN THE WHITE PORT, THE BRAUN PORT ONLY FLUSHED AND DID NOT DRAW BACK BLOOD. WILL CONTINUE TO MONITOR.
--- NOTE | 2020-04-21 14:03 | NUR ---
CATHFLO WAS USED ON THE RED PORT ON THE RIGHT UPPER ARM TRIPLE LUMEN PICC, AFTER 30 MINUTES LINE DRAWS BACK BLOOD WITHOUT DIFFICULTY. CATHFLO WAS INSTILLED, DRAWN BACK, WASTED THEN FLUSHED PER CATHFLO INSTRUCTIONS ON BOTH WHITE AND RED PORTS. OF THIS TIME ALL 3 LUMENS FLUSH AND DRAWN BACK BLOOD. WILL CONTINUE TO MONITOR.
[2020-04-21] MEDS: GLUCERNA 1.2 1,000 ML BOTTLE NG PRN (18:43)
--- NOTE | 2020-04-21 19:30 | NUR ---
END OF SHIFT NOTE: PER PREVIOUS NOTE PT IS SEDATED, WAKES UP EASILY OFF SEDATION AND FOLLOWS COMMANDS. PT RECEIVED A TOTAL OF 80MCG OF POTASSIUM VIA NG TUBE. TUBE FEEDING, GLUCERNA STARTED AT 1830 VIA NG TUBE AT 20ML/HR PER MD ORDERS. PT RECEIVED 2 GM OF MAG PER MD ORDERS. IV FLUIDS CHANGED TO NS WITH 40MEQ KCL AT 124ML/HR. ALL 3 LUMENS OF RIGHT UPPER ARM PICC CONTINUE TO FLUSH AND DRAW BACK BLOOD PREVIOUSLY NOTED. PT HAD >100ML/2 HOURS OF URINE OUTPUT. PT CONTINUES TO HAVE A FELICIANO HUGGER ON D/T LOW TEMPS IF FELICIANO HUGGER IS OFF. LEVOPHED TITRATED DOWN TO 0.04 MCG/KG/MIN PER MD ORDERS. PT CHECKED ON HOURLY AND PRN BY NURSING STAFF.
[2020-04-21] MEDS: NOREPINEPHRINE 8 MG in IV NS 0.9% 242 ML IV PRN (20:01)
[2020-04-21] MEDS: LEVOFLOXACIN (500MG) 500 MG TABLET PO SCH (20:46)
[2020-04-21] MEDS: FLUCONAZOLE (100 MG) 100 MG TABLET PO SCH (20:46)
[2020-04-22] VITALS (97 sets, daily range): BP systolic 80–138; BP diastolic 54–99
--- NOTE | 2020-04-22 00:01 | NUR ---
RN NOTE NOTED WITH CORE TEMPERATURE OF 96.8. FELICIANO HUGGER AND WARMING MEASURES IN PLACE. WILL CONTINUE TO MONITOR.
[2020-04-22] MEDS: PROPOFOL 100 ML IV PRN ×4 (04:44→21:30)
[2020-04-22] MEDS: BLOOD SUGAR DIAGNOSTIC 1 EACH STRIP IN SCH ×3 (05:13→18:00)
[2020-04-22] MEDS: Potassium Chloride 40 MEQ in IV NS 0.9% 1,000 ML IV PRN (05:13)
[2020-04-22 06:24] LABS: BASOPHILS % (AUTO) 0.2 % (0.0-2.0); EOSINOPHILS % (AUTO) 0.1 % (0.0-6.0); HEMATOCRIT 21 % (39-51); HEMOGLOBIN 7.4 g/dL (13.5-17.5); LYMPHOCYTES # (AUTO) 0.1 /CMM (0.8-4.8); LYMPHOCYTES % (AUTO) 1.1 % (20.0-44.0); MEAN CORPUSCULAR HGB CONC 35 g/dl (31.0-36.0); MEAN CORPUSCULAR VOLUME 93 fL (80-96); MONOCYTES # (AUTO) 0.3 /CMM (0.1-1.30); NEUTROPHILS # (AUTO) 8.8 /CMM (1.8-8.9); NEUTROPHILS % (AUTO) 95.6 % (43.0-81.0); PLATELET COUNT (AUTO) 63 /CMM (150-450); WHITE BLOOD COUNT (AUTO) 9.2 K/uL (4.3-11.0)
[2020-04-22 06:28] LABS: BILIRUBIN,TOTAL 0.4 mg/dL (0.2-1.0); MAGNESIUM 1.8 mg/dL (1.8-2.4); PHOSPHORUS 2.5 mg/dL (2.5-4.9); POTASSIUM 4.7 mmol/L (3.5-5.1); TOTAL PROTEIN, SERUM 3.3 g/dL (6.4-8.2)
[2020-04-22 06:51] LABS: ALBUMIN 1.1 g/dL (3.4-5.0)
--- NOTE | 2020-04-22 06:55 | NUR ---
RN NOTE RECEIVED ALERT FOR CRITICAL LAB VALUE: ALBUMIN 1.1. NOTED TO HAVE DROPPED FROM 1.[address] SARMIENTO[address]
--- NOTE | 2020-04-22 07:19 | NUR ---
RN NOTE NO CALL BACK FROM MD. NOTIFIED MORNING RN TO FOLLOW UP AND FOR CONTINUATION OF CARE.
[2020-04-22] MEDS: ACYCLOVIR 200 MG CAPSULE PO SCH ×2 (09:41→17:59)
[2020-04-22] MEDS: HYDROCORTISONE SOD SUCCINATE 100 MG/2 ML VIAL IV SCH ×2 (09:41→18:00)
[2020-04-22] MEDS: [UNRECOGNIZED DRUG - OTHER] PO SCH (09:41)
[2020-04-22] MEDS: IV NS 0.9% 1,000 ML IV PRN ×2 (09:41→17:59)
[2020-04-22] MEDS: DAPSONE 25 MG TABLET PO SCH (09:45)
[2020-04-22 12:03] LABS: BAND % (MANUAL) 2 % (0.0-5.0); EOSINOPHILS % (MANUAL) 1 % (0-4); MONOCYTES % (MANUAL) 2 % (0-11.0); NEUTROPHILS % (MANUAL) 95 (42-76)
[2020-04-22 14:29] LABS: LYMPHOCYTES % (MANUAL) 0 % (16-48)
[2020-04-22] MEDS: GLUCERNA 1.2 1,000 ML BOTTLE NG PRN (18:00)
[2020-04-22] MEDS ORDERED: DEXTROSE 50%-WATER 50 ML DISP.SYRIN IV PRN (19:00)
--- NOTE | 2020-04-22 19:08 | NUR ---
END OF SHIFT NOTE: PT HAD AN UNEVENTFUL SHIFT. IVF CHANGED TO NS AT 125MLS/HR. PT REMAINED SEDATED TODAY, SEDATION WAS INCREASED TO 45MCG/KG/MIN D/T PT BITING ON ETT AND GETTING AGITATED. NO SEDATION VACATION D/T AGITATION. PT HAD 1 BM TODAY, COLOSTOMY BAG CHANGED. 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 PADRON OSTOMY IS A COLOSTOMY, NOT AN ILEOSTOMY PER PREVIOUSLY NOTED. PT CHECKED ON HOURLY AND PRN BY NURSING STAFF.
--- NOTE | 2020-04-22 19:30 | NUR ---
COUNTY HISTORIAN INITIAL SHIFT NOTES RECEIVED PATIENT IN BED, SEDATED ON DIPRIVAN DRIP, CURRENTLY @ 45MCG/KG/MIN. PATIENT ORALLY INTUBATED, ON MECHANICAL VENTILATION AT PRESCRIBED RATE, TOLERATING WELL, NO [id number] DISTRESS NOTED AT THIS TIME. WHITE PATENT AND INTACT, COLOSTOMY INTACT, NO LEAKING NOTED. BELEN PICC PATENT AND INTACT, ONGOING IV FLUIDS NS @ 125ML/HR, LEVOPHED DRIP CURRENTLY @ 0.02MCG/KG/MIN. BED IN LOWEST AND LOCKED POSITION, HOB KEPT ELEVATED IN SEMI-FOWLERS POSITION FOR ASPIRATION PRECAUTIONS. WILL MONITOR CLOSELY
[2020-04-22] MEDS: FLUCONAZOLE (100 MG) 100 MG TABLET PO SCH (20:50)
[2020-04-22] MEDS: LEVOFLOXACIN (500MG) 500 MG TABLET PO SCH (20:50)
[2020-04-23] VITALS (61 sets, daily range): BP systolic 77–141; BP diastolic 53–96
[2020-04-23] MEDS: BLOOD SUGAR DIAGNOSTIC 1 EACH STRIP IN SCH ×4 (00:35→18:31)
[2020-04-23] MEDS: PROPOFOL 100 ML IV PRN ×3 (02:29→23:44)
[2020-04-23] MEDS: IV NS 0.9% 1,000 ML IV PRN (02:32)
[2020-04-23 04:40] LABS: BASOPHILS % (AUTO) 0.5 % (0.0-2.0); EOSINOPHILS % (AUTO) 0.3 % (0.0-6.0); HEMATOCRIT 21 % (39-51); LYMPHOCYTES # (AUTO) 0.1 /CMM (0.8-4.8); LYMPHOCYTES % (AUTO) 1.2 % (20.0-44.0); MEAN CORPUSCULAR HGB CONC 34 g/dl (31.0-36.0); MEAN CORPUSCULAR VOLUME 94 fL (80-96); MONOCYTES # (AUTO) 0.3 /CMM (0.1-1.30); MONOCYTES % (AUTO) 3.4 % (2.0-12.0); NEUTROPHILS # (AUTO) 8.9 /CMM (1.8-8.9); NEUTROPHILS % (AUTO) 94.6 % (43.0-81.0); PLATELET COUNT (AUTO) 62 /CMM (150-450); RED BLOOD CELL COUNT(AUTO) 2.19 MIL/uL (4.5-6.0); WHITE BLOOD COUNT (AUTO) 9.4 K/uL (4.3-11.0)
[2020-04-23 04:47] LABS: CALCIUM, SERUM 7.1 mg/dL (8.5-10.1); CREATININE 0.8 mg/dL (0.6-1.3); POTASSIUM 3.8 mmol/L (3.5-5.1)
[2020-04-23 05:27] LABS: HEMOGLOBIN 6.9 g/dL (13.5-17.5)
[2020-04-23 05:48] LABS: LYMPHOCYTES % (MANUAL) 1 % (16-48); MONOCYTES % (MANUAL) 4 % (0-11.0); NEUTROPHILS % (MANUAL) 95 (42-76)
--- NOTE | 2020-04-23 06:24 | NUR ---
LIQUID NATURAL GAS PLANT OPERATOR NOTES RECEIVED CALL FROM LAB, SPOKE TO ALEXA. CRITICAL LAB RESULT FOR HEMOGLOBIN 6.9, HEMATOCRIT 21. LAB RESULTS RELAYED TO DR SARMIENTO. WITH NEW ORDER TO TRANSFUSE 1 UNIT OF PRBC. ORDER READ BACK FOR CLARIFICATION. WILL CARRY OUT ALL NEW ORDERS
--- NOTE | 2020-04-23 07:15 | NUR ---
RN NOTES RECEIVED REPORT, PATIENT SEDATED WITH DIPRIVAN AT 45MCG/ KG/MIN. TOLERATING CURRENT VENT SETTINGS. NOT ON ANY FORM OF DISTRESS. SATING AT 98%. NO INDICATION OF PAIN NOTED. SINUS TACHY ON THE MONITOR WITH HR ON THE 108. WITH ONGOING CALEB AT 0.02MCG/KG/MIN AND NS AT 125CC/HR. GTF INFUSING WELL AT 20CC/HR, TOLERATING WELL, NO RESIDUAL TAKEN ON ASPIRATION. UPPER EXTREMITIES WITH WEEPING EDEMA. LOWER EXTREMITIES WITH PITTING EDEMA. PATIENT AFEBRILE AT 98.1. HOB ELEVATED, SRX2 ELEVATED. BED IN LOW AND LOCKED POSITION. CALL LIGHT WITHIN REACJ. WILL CONTINUE TO MONITOR PATIENT ACCORDINGLY
--- NOTE | 2020-04-23 07:58 | NUR ---
RT PATIENT REC'D ORALLY INTUBATED ON [facility] VENT. VENT ALARMS CHECKED + AUDIBLE. PATIENT SEDATED AND APPEARS COMFORTABLE AND IN NO DISTRESS. AMBU BAG AT HOB Addendum: 04/23/20 at 1753 by MARTIN MACK RT Amended: Links added.
[2020-04-23] MEDS: DAPSONE 25 MG TABLET PO SCH (08:29)
[2020-04-23] MEDS: HYDROCORTISONE SOD SUCCINATE 100 MG/2 ML VIAL IV SCH ×2 (08:29→16:59)
[2020-04-23] MEDS: [UNRECOGNIZED DRUG - OTHER] PO SCH (08:30)
[2020-04-23] MEDS: ACYCLOVIR 200 MG CAPSULE PO SCH ×2 (08:30→17:00)
--- NOTE | 2020-04-23 09:00 | NUR ---
RN NOTES CALLED SON BRANDT TO OBTAIN CONSENT FOR BLOOD TRANSFUSION BUT WAS NOT ABLE TO INDEPENDENT SALES REPRESENTATIVE, VOICE MAIL LEFT. AWAITING CALL BACK
[2020-04-23 09:33] LABS: HEMOGLOBIN 7.5 g/dL (13.5-17.5)
--- NOTE | 2020-04-23 11:00 | NUR ---
RN NOTES CALLED BRANDT AGAIN AT THIS TIME AND WAS SUCCESSFULLY ABLE TO TALK AND OBTAIN CONSENT FOR BLOOD TRANSFUSION FROM HIM. CONSENT VERIFIED WITH BRISSA BUCIO.
[2020-04-23] MEDS ORDERED: IV NS 0.9% 250 ML IV PRN (17:30)
--- NOTE | 2020-04-23 19:30 | NUR ---
JOURNEYMAN PRESSMAN INITIAL SHIFT NOTES RECEIVED PATIENT IN BED, SEDATED ON DIPRIVAN DRIP, CURRENTLY @ 35MCG/KG/MIN. PATIENT ORALLY INTUBATED, ON MECHANICAL VENTILATION AT PRESCRIBED RATE, TOLERATING WELL, NO [id number] DISTRESS NOTED AT THIS TIME. WHITE PATENT AND INTACT, COLOSTOMY INTACT, NO LEAKING NOTED. BELEN PICC PATENT AND INTACT, TKO. BED IN LOWEST AND LOCKED POSITION, HOB KEPT ELEVATED IN SEMI-FOWLERS POSITION FOR ASPIRATION PRECAUTIONS. WILL MONITOR CLOSELY
[2020-04-23] MEDS: LEVOFLOXACIN (500MG) 500 MG TABLET PO SCH (20:06)
[2020-04-23] MEDS: FLUCONAZOLE (100 MG) 100 MG TABLET PO SCH (20:06)
[2020-04-24] VITALS (49 sets, daily range): BP systolic 84–132; BP diastolic 57–94
[2020-04-24] MEDS: BLOOD SUGAR DIAGNOSTIC 1 EACH STRIP IN SCH ×5 (00:06→23:28)
--- NOTE | 2020-04-24 04:00 | NUR ---
COMMERCIAL ART INSTRUCTOR NOTES FULL BED BATH RENDERED, WOUND CARE PERFORMED PRESCRIBED, TOLERATED WELL. WILL CONTINUE TO CLOSELY MONITOR
[2020-04-24 05:03] LABS: BASOPHILS % (AUTO) 0.4 % (0.0-2.0); EOSINOPHILS % (AUTO) 0.1 % (0.0-6.0); HEMATOCRIT 29 % (39-51); LYMPHOCYTES # (AUTO) 0.1 /CMM (0.8-4.8); LYMPHOCYTES % (AUTO) 1.4 % (20.0-44.0); MEAN CORPUSCULAR HGB CONC 34 g/dl (31.0-36.0); MEAN CORPUSCULAR VOLUME 91 fL (80-96); MONOCYTES # (AUTO) 0.3 /CMM (0.1-1.30); MONOCYTES % (AUTO) 3.1 % (2.0-12.0); NEUTROPHILS # (AUTO) 10.2 /CMM (1.8-8.9); PLATELET COUNT (AUTO) 68 /CMM (150-450); RED BLOOD CELL COUNT(AUTO) 3.23 MIL/uL (4.5-6.0); WHITE BLOOD COUNT (AUTO) 10.7 K/uL (4.3-11.0)
[2020-04-24 05:04] LABS: CALCIUM, SERUM 7.4 mg/dL (8.5-10.1); CREATININE 0.7 mg/dL (0.6-1.3); POTASSIUM 3.9 mmol/L (3.5-5.1)
[2020-04-24] MEDS: PROPOFOL 100 ML IV PRN ×3 (05:33→22:02)
[2020-04-24 05:37] LABS: LYMPHOCYTES % (MANUAL) 1 % (16-48); MONOCYTES % (MANUAL) 4 % (0-11.0); NEUTROPHILS % (MANUAL) 95 (42-76)
--- NOTE | 2020-04-24 07:00 | NUR ---
LONGWALL HEADGATE OPERATOR CLOSING NOTES PATIENT REMAINS ORALLY INTUBATED ON MECHANICAL VENTILATION, REMAINS ON DIPRIVAN DRIP @ 35MCG/KG/MIN. NO ACUTE EVENTS THROUGHOUT THE SHIFT. WILL ENDORSE THE PATIENT TO THE AM SHIFT NURSE FOR CONTINUITY OF CARE
[2020-04-24] MEDS: HYDROCORTISONE SOD SUCCINATE 100 MG/2 ML VIAL IV SCH ×2 (09:12→17:20)
[2020-04-24] MEDS: ACYCLOVIR 200 MG CAPSULE PO SCH ×2 (09:13→17:20)
[2020-04-24] MEDS: [UNRECOGNIZED DRUG - OTHER] PO SCH (09:13)
[2020-04-24] MEDS: DAPSONE 25 MG TABLET PO SCH (09:13)
[2020-04-24] MEDS: ACETAMINOPHEN 650 MG/20.3 ML UDC NG PRN (11:47)
--- NOTE | 2020-04-24 12:00 | NUR ---
RN NOTES PATIENT STARTED BEING TACHYCARDIC ON THE 140 WITH TEMPERATURE AT 101. COOLING MEASURES APPLIED. TYLENOL ADMINISTERED. WILL CONTINUE TO MONITOR PATIENT ACCORDINGLY
--- NOTE | 2020-04-24 16:00 | NUR ---
RN NOTES PAGED MICHAEL LEA TO OBTAIN ORDER TO INCREASE FEEDING TO 50CC/HR PER DIETARY RECOMMENDATION BUT PER THE LATTER INCREASE FEEDING TO 30CC/HR INSTEAD. ORDER NOTED AND CARRIED OUT
[2020-04-24] MEDS ORDERED: GLUCERNA 1.2 1,000 ML BOTTLE NG PRN (19:00)
--- NOTE | 2020-04-24 19:10 | NUR ---
STRATEGIC ALLIANCES MANAGER OPENING NOTES RECEIVED PATIENT IN BED, SEDATED ON DIPRIVAN DRIP, CURRENTLY @ 35MCG/KG/MIN VIA BELEN PICC INFUSING WELL. PATIENT ORALLY INTUBATED, ON MECHANICAL VENTILATION AT PRESCRIBED RATE, TOLERATING WELL, NO RESPIRATORY DISTRESS NOTED SPO2 98%. ON TELE MONITOR WITH CURRENT READING ST 100'S. OGTUBE ON PLACE PATENT RESIDUAL CHECKED WITH ONGOING GLUCERNA @ 30ML/HR TOLERATING WELL.WHITE PATENT WITH FLOWING YELLOW URINE VIA GRAVITY, COLOSTOMY INTACT, NO LEAKING NOTED. . BED IN LOWEST AND LOCKED POSITION, HOB KEPT ELEVATED IN SEMI-FOWLERS POSITION FOR ASPIRATION PRECAUTIONS. WILL CONT TO MONITOR CLOSELY
--- NOTE | 2020-04-24 19:20 | NUR ---
rn notes sendorsed for ccontinuity of care. not on any form of distress. sating ffine at the moment. sedated with diprivan at 35mcg/kg/min. gtf infusing well. no indication of pain. no sign of bleeding notes. all nursing needs attended and met. all changes addressed. safety measures in place at all time
[2020-04-24] MEDS: LEVOFLOXACIN (500MG) 500 MG TABLET PO SCH (20:37)
[2020-04-24] MEDS: FLUCONAZOLE (100 MG) 100 MG TABLET PO SCH (20:37)
[2020-04-24] MEDS: MEROPENEM 500 MG in IV NS 0.9% 50 ML IV SCH (21:00)
[2020-04-24] MEDS: INSULIN REGULAR, HUMAN 100 UNIT/ML 3 ML VIAL SQ PRN (23:28)
[2020-04-25] VITALS (28 sets, daily range): BP systolic 94–153; BP diastolic 70–100
[2020-04-25] MEDS: MEROPENEM 500 MG in IV NS 0.9% 50 ML IV SCH (04:25)
[2020-04-25 04:46] LABS: BASOPHILS % (AUTO) 0.5 % (0.0-2.0); EOSINOPHILS % (AUTO) 0.3 % (0.0-6.0); HEMATOCRIT 30 % (39-51); HEMOGLOBIN 9.9 g/dL (13.5-17.5); LYMPHOCYTES # (AUTO) 0.1 /CMM (0.8-4.8); LYMPHOCYTES % (AUTO) 0.9 % (20.0-44.0); MEAN CORPUSCULAR HGB CONC 33 g/dl (31.0-36.0); MEAN CORPUSCULAR VOLUME 92 fL (80-96); MONOCYTES # (AUTO) 0.3 /CMM (0.1-1.30); MONOCYTES % (AUTO) 3.3 % (2.0-12.0); NEUTROPHILS # (AUTO) 9.8 /CMM (1.8-8.9); PLATELET COUNT (AUTO) 81 /CMM (150-450); RED BLOOD CELL COUNT(AUTO) 3.23 MIL/uL (4.5-6.0); WHITE BLOOD COUNT (AUTO) 10.3 K/uL (4.3-11.0)
[2020-04-25 05:06] LABS: BILIRUBIN,TOTAL 0.4 mg/dL (0.2-1.0); CALCIUM, SERUM 7.5 mg/dL (8.5-10.1); CREATININE 0.7 mg/dL (0.6-1.3); MAGNESIUM 1.7 mg/dL (1.8-2.4); POTASSIUM 3.8 mmol/L (3.5-5.1); TOTAL PROTEIN, SERUM 3.9 g/dL (6.4-8.2)
[2020-04-25] MEDS: PROPOFOL 100 ML IV PRN (05:27)
[2020-04-25 05:31] LABS: ALBUMIN 1.1 g/dL (3.4-5.0)
[2020-04-25] MEDS: INSULIN REGULAR, HUMAN 100 UNIT/ML 3 ML VIAL SQ PRN (05:52)
[2020-04-25] MEDS: BLOOD SUGAR DIAGNOSTIC 1 EACH STRIP IN SCH ×2 (05:52→12:00)
[2020-04-25 05:59] LABS: LYMPHOCYTES % (MANUAL) 1 % (16-48); MONOCYTES % (MANUAL) 3 % (0-11.0)
[2020-04-25 06:00] LABS: NEUTROPHILS % (MANUAL) 96 (42-76)
--- NOTE | 2020-04-25 06:47 | NUR ---
RN CLOSING NOTES PT ON BED SEDATED, ON ETT/VENT SETTING ORDERED, NO SIGN AND SYMPTOMS OF RESPIRATORY DISTRESS SPO2 98%, STILL ON GTUBE FEEDING GLUCERNA @ 30ML/HR, ON TELE MONITOR WITH READING SINUS RHYTHM 90'S, ALL NEEDS ATTENDED, SAFETY MEASURE MAINTAINED BED ON LOWEST POSITION AND LOCKED SIDE RAILS UP X3 WILL ENDORSED TO AM SHIFT NURSE
[2020-04-25 07:40] LABS: ABG BASE EXCESS -6.5 mmol/L; ABG OXYGEN SATURATION 97.2 % (92.0-98.5); ABG PCO2 33.4 mmHg (35.0-45.0); ABG PH 7.354 (7.350-7.450); AaDO2 148.8 mmHg; COHb 0.5 % (0.5-1.5); MetHb 1.1 % (0.0-1.5); O2Hb 95.6 % (94.0-97.0); SITE, ABG Right Femoral; VENT MODE, BG AC 16 450 40% +5
[2020-04-25] MEDS: Magnesium 1GM/D5W 100ML PREMIX 100 ML IV SCH ×2 (09:09→10:46)
[2020-04-25] MEDS: [UNRECOGNIZED DRUG - OTHER] PO SCH (09:34)
[2020-04-25] MEDS: HYDROCORTISONE SOD SUCCINATE 100 MG/2 ML VIAL IV SCH (09:34)
[2020-04-25] MEDS: DAPSONE 25 MG TABLET PO SCH (09:34)
[2020-04-25] MEDS: ACYCLOVIR 200 MG CAPSULE PO SCH (09:34)
--- NOTE | 2020-04-25 12:15 | NUR ---
RN CALLED SON BRANDT REGARDING COMFORT CARES FOR PATIENT AND IF FAMILY WANTED TO COME VISIT. NO ONE ANSWERED, LEFT NUMERIC MESSAGE.
[2020-04-25] MEDS ORDERED: MORPHINE SULFATE PF DRIP 250 MG in IV D5W 240 ML IV PRN (12:30)
--- NOTE | 2020-04-25 13:09 | NUR ---
RN SPOKE TO SON BRANDT REGARDING COMFORT MEASURES. SON STATED HE AND A FEW FAMILY MEMBERS WILL COME TO SAY GOOD BYE TO PATIENT. RN INFORMED BRANDT THAT HE MUST CHECK IN WITH SECURITY AND THAT 1 FAMILY MEMBER AT A TIME, WEARING A MASK WILL BE PERMITTED TO SEE PATIENT. SECURITY NOTIFIED.
--- NOTE | 2020-04-25 13:24 | NUR ---
PROPOFOL TURNED OFF AT 1319, PT'S SON BRANDT HERE VISITING AT THIS TIME. RN CLOSED DOOR TO ALLOW PRIVACY.
[2020-04-25] MEDS ORDERED: LORAZEPAM INJ 2 MG/ML VIAL IV PRN (13:30)
[2020-04-25] MEDS ORDERED: KEY,NONCONTROL,TO KEEP IN PYXI 1 EA MC ONE ×2 (14:48→15:26)
[2020-04-25] MEDS: MORPHINE SULFATE PF DRIP 100 MG in IV D5W 96 ML IV PRN (14:54)
--- NOTE | 2020-04-25 16:19 | NUR ---
A TOTAL OF 4 FAMILY MEMBERS VISITED WITH PATIENT AND LEFT AT 1430. THE SON BRANDT STATED THEY ARE LEAVING, PATIENT CAN BE EXTUBATED AFTER THEY LEAVE. BRANDT EXPLAINED TO THE PATIENT THAT WE WILL MAKE HIM COMFORTABLE AND LET HIM GO PEACEFULLY. RN REINFORCED TO PATIENT THAT WE WILL MAKE HIM COMFORTABLE, PT NODDED UNDERSTANDING AND BECAME TEARY EYED. RN ASKED PT IF HE WANTED ATIVAN TO HELP HIM RELAX, PT NODDED YES. ATIVAN GIVEN PER MD ORDERS. MORPHINE GTT STARTED AT 1500 PER PROTOCOL. THE NARCOTIC TREVINO WAS NOT IN THE ICU OMNICELL, CHARGE NURSE AND ICU AUTOMATIC LOG CUT OFF SAWYER ADELAIDA NOTIFIED. CHARGE NURSE BORROWED A NARCOTIC TREVINO FROM [email or web address] AND RETURNED IT AFTER USE. PT WAS EXTUBATED WITHOUT DIFFICULTY AT 1614 BY RT, 2L NASAL CANNULA APPLIED. PT APPEARS CALM WITH MORPHINE GTT INFUSING. WILL CONTINUE TO MONITOR.
--- NOTE | 2020-04-25 18:10 | NUR ---
REPORT GIVEN TO MED/BARBERING TEACHER FOR TRANSFER TO MED/SURG FOR COMFORT CARE. MORPHINE GTT INFUSING AT 6MG/HR PER PROTOCOL. RN CALLED PT'S SON BRANDT [phone] TO INFORM HIM OF PT'S TRANSFER TO ROOM 310-2, VOICEMAIL LEFT.
--- NOTE | 2020-04-25 18:30 | NUR ---
RN NOTES RECEIVED PT FROM ICU VIA BED. PT DROWSY, ASLEEP, PER ICU NURSE OPENS EYES. PT ON SUPPLEMENTARY OXYGEN AT 2LPM VIA NC, SATURATING AT 94-96%. VITALS TAKEN AND RECORDED. ON GOING MORPHINE DRIP AT 6MG INFUSING TO BELEN TRIPLE LUMEN PICC, INATCT AND OPERATIONAL. BUE AND BLE SWELLING AND WEEPING NOTED. COLOSTOMY PRESENT AND FC IN PLACE WITH YELLOW URINE 150ML OUTPUT. PT KEPT COMFORTABLE. HOB ELEVATED. CALL LIGHT KEPT WITHIN REACH. WILL ENDORSE TO INCOMING NIGHT NURSE FOR YASHIRA.
--- NOTE | 2020-04-25 20:00 | NUR ---
MS RN NOTES PT LETHARGIC. RR = 6/MIN. ON COMFORT MEASURES ONLY. NO S/SX OF ANY PAIN OR DISCOMFORT AT THIS TIME. WITH MORPHINE DRIP INFUSING WELL. CALL LIGHT WITHIN REACH. BED IN LOWEST POSITION. SR UP X 3 WITH BED ALARM ON FOR SAFETY. WILL CONTINUE TO MONITOR.
--- NOTE | 2020-04-26 | NUR ---
MS RN NOTES PT NON RESPONSIVE. RR = 6/MIN. ON COMFORT MEASURES ONLY. NO S/SX OF ANY PAIN OR DISCOMFORT AT THIS TIME. WITH MORPHINE DRIP INFUSING WELL. CALL LIGHT WITHIN REACH. BED IN LOWEST POSITION. SR UP X 3 WITH BED ALARM ON FOR SAFETY. WILL ENDORSE TO NEXT SHIFT. Addendum: 04/26/20 at 0635 by LARRY DELGADO RN WILL CONTINUE TO MONITOR. NOT WILL ENDORSE TO NEXT SHIFT.
--- NOTE | 2020-04-26 06:15 | NUR ---
MS RN NOTES PT NON RESPONSIVE. RR = 5/MIN. ON COMFORT MEASURES ONLY. NO S/SX OF ANY PAIN OR DISCOMFORT AT THIS TIME. WITH MORPHINE DRIP INFUSING WELL. AM CARE DONE. MONITORED ACCORDINGLY. CALL LIGHT WITHIN REACH. BED IN LOWEST POSITION. SR UP X 3 WITH BED ALARM ON FOR SAFETY. WILL ENDORSE TO NEXT SHIFT.
--- NOTE | 2020-04-26 08:00 | NUR ---
MS RN OPENING NOTES Received Patient resting comfortably in bed. Lethargic and drowsy. Patient in stable condition with comfort measures. RR-10 on 4LPM via NC. No signs and symptoms of pain nor distress. Trinidad Cath in place and patent. BELEN PICC Line clean, intact, patent and flushing well with Morphine infusing at 6mg/hr. Safety precautions in place. Bed locked and set to lowest position with side rails x 3 up. All needs rendered at this time. Comfort measures provided. Call light within reach. Will continue to monitor.
[2020-04-26] MEDS ORDERED: KEY,NONCONTROL,TO KEEP IN PYXI 1 EA MC ONE ×2 (09:43→19:55)
[2020-04-26] MEDS: MORPHINE SULFATE PF DRIP 100 MG in IV D5W 96 ML IV PRN (09:50)
--- NOTE | 2020-04-26 11:39 | NUR ---
PER BRANDT (SON), MAY GIVE MEDICAL INFORMATION TO [facility] AND JOVON MENA (SON).
--- NOTE | 2020-04-26 17:59 | NUR ---
MS RN NOTES Patient at 1749. Jorge RN witness. Fadi RODRIGUEZ, notified. Notified [facility] at this time. Spoke with Tulio. Per Tulio march release body. REFERRAL/CASE ID NUMBER [id number]
--- NOTE | 2020-04-26 18:07 | NUR ---
MS RN NOTES Notified Pee (Son) at this time that Patient . Per Son, they do not have mortuary planned nor available at this time. Explained to Son that [place] [facility] Son verbalized understanding.
--- NOTE | 2020-04-26 18:20 | NUR ---
MS RN NOTE Began "Record of /Authorization for Release of Remains". Placed in chart.
--- NOTE | 2020-04-26 19:06 | NUR ---
MS RN CLOSING NOTES Provided post mortem care. Unable to remove green bracelet on left wrist. Red necklace belonging attached to post mortem bag. Per Exposure Machine Operator, Mortuary on the way to sheepskin pickler Patient. Will endorse to oncoming shift.
== END 2020-04-26 17:49 | disposition expired | DRG 974 ==
LOC: ER 01:05 → ICU 02:33 → MED 04-04 10:56 → TELE 04-04 11:01 → MED 04-05 08:41 → TELE 04-06 10:02 → ICU 04-06 17:15 → TELE 04-18 10:33 → ICU 04-19 10:29 → MED 04-25 18:21
PROVIDERS: ADMIT Nurse Practitioner Acute Care; ATTEND Hospitalist
PROC: 5A1955Z Respiratory Ventilation, Greater than 96 Consecutive Hours (ICD-10-PCS; principal; 2020-03-27)
PROC: 0BH17EZ Insertion of Endotracheal Airway into Trachea, Via Natural or Artificial Opening (ICD-10-PCS; 2020-03-27)
PROC: 02HV33Z Insertion of Infusion Device into Superior Vena Cava, Percutaneous Approach (ICD-10-PCS; 2020-03-27)
PROC: B548ZZA Ultrasonography of Superior Vena Cava, Guidance (ICD-10-PCS; 2020-03-27)
PROC: 009U3ZX Drainage of Spinal Canal, Percutaneous Approach, Diagnostic (ICD-10-PCS; 2020-03-31)
PROC: B01BYZZ Fluoroscopy of Spinal Cord using Other Contrast (ICD-10-PCS; 2020-03-31)
PROC: 0BH17EZ Insertion of Endotracheal Airway into Trachea, Via Natural or Artificial Opening (ICD-10-PCS; 2020-04-06)
PROC: 5A1955Z Respiratory Ventilation, Greater than 96 Consecutive Hours (ICD-10-PCS; 2020-04-06)
PROC: 30233N1 Transfusion of Nonautologous Red Blood Cells into Peripheral Vein, Percutaneous Approach (ICD-10-PCS; 2020-04-08)
PROC: 0W3P8ZZ Control Bleeding in Gastrointestinal Tract, Via Natural or Artificial Opening Endoscopic (ICD-10-PCS; 2020-04-17)
PROC: 0DB68ZX Excision of Stomach, Via Natural or Artificial Opening Endoscopic, Diagnostic (ICD-10-PCS; 2020-04-17)
PROC: 0BH17EZ Insertion of Endotracheal Airway into Trachea, Via Natural or Artificial Opening (ICD-10-PCS; 2020-04-19)
PROC: 5A1955Z Respiratory Ventilation, Greater than 96 Consecutive Hours (ICD-10-PCS; 2020-04-19)
DX: A41.9 Sepsis, unspecified organism (principal); E43 Unspecified severe protein-calorie malnutrition; B20 Human immunodeficiency virus [HIV] disease; J96.01 Acute respiratory failure with hypoxia; J18.9 Pneumonia, unspecified organism; Z51.5 Encounter for palliative care; I21.A1 Myocardial infarction type 2; I50.33 Acute on chronic diastolic (congestive) heart failure; J96.02 Acute respiratory failure with hypercapnia; N17.0 Acute kidney failure with tubular necrosis; R65.21 Severe sepsis with septic shock; K29.71 Gastritis, unspecified, with bleeding; K26.4 Chronic or unspecified duodenal ulcer with hemorrhage; N39.0 Urinary tract infection, site not specified; E87.2 Acidosis; J98.11 Atelectasis; K56.7 Ileus, unspecified; G93.40 Encephalopathy, unspecified; E87.0 Hyperosmolality and hypernatremia; D62 Acute posthemorrhagic anemia; E27.40 Unspecified adrenocortical insufficiency; E86.0 Dehydration; B96.20 Unspecified Escherichia coli [E. coli] as the cause of diseases classified elsewhere; R74.0 Nonspecific elevation of levels of transaminase and lactic acid dehydrogenase [LDH]; R53.1 Weakness; I45.81 Long QT syndrome; E88.09 Other disorders of plasma-protein metabolism, not elsewhere classified; E87.6 Hypokalemia; E16.2 Hypoglycemia, unspecified; Z93.3 Colostomy status; Z68.21 Body mass index [BMI] 21.0-21.9, adult; D69.6 Thrombocytopenia, unspecified; K56.41 Fecal impaction; K29.70 Gastritis, unspecified, without bleeding; J45.909 Unspecified asthma, uncomplicated; E83.42 Hypomagnesemia; D63.8 Anemia in other chronic diseases classified elsewhere; M85.80 Other specified disorders of bone density and structure, unspecified site; Z85.048 Personal history of other malignant neoplasm of rectum, rectosigmoid junction, and anus
CPT/HCPCS: 31720; 36415; 36569; 36600; 71045-TC; 74018; 74250-TC; 80048-TC; 80053-TC; 80061-TC; 80076-TC; 80202-TC; 80305; 81000-TC; 82272-TC; 82533; 82550-TC; 82570-TC; 82728-TC; 82803-TC; 82962-TC; 83540-TC; 83605-TC; 83615-TC; 83735-TC; 83880; 84100-TC; 84155-TC; 84300-TC; 84478-TC; 84484-TC; 85025-TC; 85027-TC; 85730-TC; 86140-TC; 86360; 86592; 86644; 86645; 86694; 86788; 86789; 86850-TC; 86921-TC; 87040-TC; 87070-TC; 87081-TC; 87086-TC; 87186-TC; 87281; 87449; 87806; 87899; 88305-TC; 88313-TC; 88342; 89051-TC; 92526; 92611-TC; 93307-TC; 94002-TC; 94003-TC; 94640-TC; 94760-TC; 94799-TC; 97530-TC; 99082-TC; A4216; A4217; A6253; A6403; A9563; C1751; C9113; G0378; J0133; J0330; J0456; J0692; J1450; J1650; J1720; J1815; J2060; J2185; J2274; J2370; J2543; J2704; J2920; J2930; J2997; J3010; J3370; J3475; J3480; J3490; J7030; J7040; J7042; J7050; J7060; J7120; P9016-BL; Q9963; U0003-CS